=== PATIENT | male | born 1975 | race Caucasian/White ===

== ENCOUNTER → 2019-05-27 13:27 | Outpatient (CLI) | payer OTHER, SELFPAY ==
--- NOTE | 2019-05-27 13:34 | RAD_ITS ---
STUDY: X-RAY - ABDOMEN/PELVIS REASON FOR EXAM: Male, 44 years old. Right ureteral stone TECHNIQUE: Two AP supine views of the abdomen and pelvis. COMPARISON: None. FINDINGS: There is an unremarkable bowel gas pattern. There is no demonstrated free abdominal air. No calcification seen over the course of the renal pelvis and ureters. Normal soft tissue structures. Normal visualized osseous structures. RAD/Abdomen Single View IMPRESSION: Normal x-ray examination of the abdomen and pelvis. Electronically Signed: Hanh Munguia MD at 3:28 EDT , Service support ,
== END ==
PROVIDERS: Referring Provider Nurse Practitioner Adult Health; Visit Provider Nurse Practitioner Adult Health
DX: N20.1 Calculus of ureter (principal)
CPT/HCPCS: 74018

== ENCOUNTER 2022-01-20 01:59 | Emergency (ER) | payer OTHER, SELFPAY ==
[2022-01-20 02:00] VITALS: BP 191/112; PULSE 94; RESP 21; TEMP 36.8; O2SAT 98; BMI 30.7
--- NOTE | 2022-01-20 02:31 | EKG12_ITS ---
Test Reason : CP Blood Pressure : / mmHG Vent. Rate : 088 BPM Atrial Rate : 088 BPM P-R Int : 150 ms QRS Dur : 088 ms QT Int : 382 ms P-R-T Axes : 036 -36 029 degrees QTc Int : 462 ms Normal sinus rhythm Left axis deviation Abnormal ECG Confirmed by WELLINGTON DIAZ, ADELSO ([id number]), photograph editor MARK MEJÍA ([id number]) on 01/21/2022 9:14:59 AM Referred By: LUCIE Confirmed By:ADELSO PARIS MD
[2022-01-20 02:37] LABS: Absolute Lymphocyte Count 2.32 X10^3/uL (0.83-4.51); Absolute Neutrophil Count 8.8 X10^3/uL (2.0-7.7); Basophil# 0.03 X10^3/uL; Basophil% 0.2 % (0-1); Eosinophil# 0.14 X10^3/uL; Eosinophils% 1.1 % (0-5); Hematocrit 46.2 % (40-54); Hemoglobin 15.9 g/dL (13.0-16.5); Lymphocyte # 2.32 X10^3/ul (0.83-4.51); Lymphocyte % 18.7 % (19-41); Mean Corp Hgb Conc 34.4 g/dL (32-36); Mean Corpuscular Volume 90.1 fL (80-94); Monocyte# 1.13 X10^3/uL; Monocyte% 9.1 % (0-10); NRBC Flagged by Analyzer 0 % (0-5); Neutrophil # 8.75 X10^3/uL (2.7-7.7); Neutrophil % 70.5 % (47-70); Platelet Count 323 K/mm3 (150-450); RBC Distribution Width CV 11.9 % (11.6-14.6); RBC Distribution Width SD 39.1 fl (35.1-43.9); Red Blood Count 5.13 M/mm3 (4.6-6.2); White Blood Count 12.4 K/mm3 (4.4-11.0)
--- NOTE | 2022-01-20 02:52 | RAD_ITS ---
STUDY: X-RAY CHEST REASON FOR EXAM: Male, 46 years old. CHEST PAIN TECHNIQUE: Single AP portable view of the chest. COMPARISON: None. FINDINGS: Shallow inspiratory level. Compression of parenchyma possible atelectasis in the bases. There is no demonstrated pleural abnormality. Normal size heart. Normal mediastinum and darnell. Normal visualized pulmonary arteries. Normal visualized aortic arch and descending thoracic aorta. Normal visualized thoracic spine. Normal visualized ribs, clavicles, and shoulders. There is no demonstrated abnormality of the visualized soft tissue structures of the upper abdomen. RAD/Chest 1 View (Portable) IMPRESSION: Possible atelectasis/compression of parenchyma in the bases with shallow intervertebral level. No pulmonary edema, congestive heart failure or confluent pneumonia. Electronically Signed: Hanh Munguia MD at 3:31 EDT Reading Location ID and State: , Service support ,
[2022-01-20 02:55] LABS: Anion Gap 5 (5-15); BUN 17 mg/dL (7-18); BUN/Creat Ratio 14.4 RATIO (10-20); Calcium,Total 9.1 mg/dL (8.5-10.1); Chloride 106 mmol/L (98-107); Creatinine, Serum 1.18 mg/dL (0.70-1.30); EST Glomerular Filtration Rate 70 mL/min (>60); Est Glom Filt Rate - Afr Amer 85 mL/min (>60); Estimated Creatinine Clearance 82.43 ml/min; Glucose 129 mg/dL (74-106); Potassium 3.5 mmol/L (3.5-5.1); Sodium Level 140 mmol/L (136-145); Troponin-I HS 5 pg/mL (3.0-78.0)
[2022-01-20] MEDS: Aspirin 325 MG Tablet PO (03:23)
[2022-01-20] MEDS: Labetalol (Prefilled) 20 MG/4 ML IV (03:24)
[2022-01-20] MEDS: cloNIDine HCl 0.2 MG Tablet PO (03:28)
[2022-01-20 03:31] VITALS: BP 179/115
[2022-01-20 03:45] LABS: AST(SGOT) 15 U/L (15-37); Alanine Aminotransfer ALT/SGPT 38 U/L (16-61); Albumin, Serum 3.6 g/dL (3.2-5.0); Alkaline Phosphatase 88 U/L (45-117); Bilirubin, Direct 0.07 mg/dL (0.00-0.30); Globulin 3.6 g/dL (2.2-4.2); Lipase 109 U/L (73-393); Protein, Total 7.2 g/dL (6.4-8.2)
[2022-01-20 04:07] LABS: D-Dimer Quantitative (DVT/PE) < 0.27 FEU/ug/m (0.27-0.49)
[2022-01-20 04:30] LABS: Troponin-I HS 5 pg/mL (3.0-78.0)
[2022-01-20] MEDS: Ketorolac 30 MG/ML Syringe IV (04:32)
[2022-01-20] MEDS: hydrALAZINE 20 MG/ML Vial IV (04:34)
[2022-01-20 04:37] VITALS: BP 149/119
--- NOTE | 2022-01-20 05:28 | EDS_ITS ---
HPI History of Present Illness Chief Complaint: Chest Pain Narrative Narrative: Patient is a 46-year-old male who states that today he was swimming and throwing his kids in the air. He states he did not think much of this and did not develop any sudden onset pain. However he states that they ate dinner around 530 or 6 and then few hours later he had a late night snack which was a repeat piece of pizza which is what they had for dinner. He states he then developed some discomfort in his chest and was able to belch and felt better but did not have complete resolution of symptoms. He states they have been persistent now for the past few hours and secondary to this he comes in for evaluation [facility] Medical History no medical history Home Medications NK 01/20/22 [History Last Taken Unknown] Allergy/AdvReac Type Severity Reaction Status Date / Time No Known Allergies Allergy Verified 01/20/22 02:04 Surgical History no surgical history Social History Smoking Status: Never smoker [facility] ED Constitutional Constitutional ED: Denies chills or fever(s) ENT ENT ED: Denies sore throat Cardiovascular Cardiovascular: Reports chest pain; Denies palpitations or racing heartbeat Respiratory/Chest Respiratory/Chest: Denies cough, dyspnea or dyspnea on exertion Gastrointestinal Gastrointestinal: Reports nausea; Denies abdominal pain, diarrhea or vomiting Genitourinary Genitourinary ED: Denies dysuria Musculoskeletal Musculoskeletal: Denies back pain or myalgias Integumentary Denies rash Neurologic Neurologic: Denies headache(s) Hematologic/Lymphatic Hematologic/Lymphatic: Denies easy bleeding or easy bruising EXAM Physical Exam Const Vital Signs: 01/20/22 02:00 01/20/22 02:02 01/20/22 03:31 Temperature 98.3 F Temperature Source Oral Pulse Rate 94 Respiratory Rate 21 H Respiratory Effort Normal Non-Labored Respiratory Pattern Normal Blood Pressure 191/112 H 179/115 H Blood Pressure Mean 138 136 Pulse Ox 98 Oxygen Delivery Method Room Air 01/20/22 04:37 01/20/22 05:36 Temperature Temperature Source Pulse Rate 86 Respiratory Rate 25 H Respiratory Effort Respiratory Pattern Blood Pressure 149/119 H 116/82 H Blood Pressure Mean 129 Pulse Ox 96 Oxygen Delivery Method Positive well nourished and well developed General Appearance ED: well developed HEENT Reports moist mucous membranes Eyes PERRL and EOMs intact bilaterally Neck supple and no JVD Chest Wall Chest Narrative: There is pain with palpation of the right anterior chest wall over top the costal joints which patient states is similar nature to the pain he is experiencing Resp normal respiratory effort and clear to auscultation bilaterally Cardio regular rate and regular rhythm Rate: other Other Details: Radial pulses are plus 2 out of 4 bilaterally are equal and symmetric GI normal to inspection, nondistended, normoactive bowel sounds, non-tender, non- distended and no masses GI Narrative: No voluntary guarding or rigidity no pulsatile mass Auscultation: normoactive bowel sounds Palpation: soft Extremity normal to inspection Extremity Narrative: No asymmetric edema no pitting edema negative Homans' sign bilaterally Neuro oriented x3 and CN's II-XII intact bilaterally Sensorium / Orientation: alert Psych mental status grossly normal Skin no rashes or lesions noted MDM MDM MDM Narrative Medical decision making narrative: Patient presented to the ER hypertensive but otherwise stable vitals. He reported chest discomfort for the past few hours which did begin after eating and he also reported increased physical activity today. He also stated that he felt like the pain was slightly worse with inspiration but his only risk factor for DVT is recent travel to [place]. Secondary to the chest discomfort and his mild to moderate risk factors I did elect to perform a cardiac work-up. His initial and delta troponin are normal at 5 and his D-dimer is negative. His EKG is sinus rhythm and chest x-ray reveals no acute lung pathology. Patient was medicated because of hypertension and did have resolution of this. He also had his blood pressure taken and bilateral arms and they are essentially equal with the right arm being 128/77 and the left arm being 118/79. A 10 point difference is not clinically significant. On reevaluation the patient is resting comfortably and does report improvement of his symptoms. Therefore with overall negative work-up and improvement of symptoms I do not feel there is need for further testing or admission and patient will be discharged home. Patient is agreeable with this plan and will follow-up with family doctor to discuss need for further testing on an outpatient basis Lab Data Attestation: I reviewed the patient's lab results. Labs: Laboratory Results - last 24 hr 01/20/22 01/20/22 01/20/22 02:10 02:10 02:10 WBC 12.4 H RBC 5.13 Hgb 15.9 Hct 46.2 MCV 90.1 MCH 31.0 MCHC 34.4 RDW Std Deviation 39.1 RDW Coeff of Barbra 11.9 Plt Count 323 MPV 10.0 Immature Gran % (Auto) 0.400 Neut % (Auto) 70.5 H Lymph % (Auto) 18.7 L Polk % (Auto) 9.1 Eos % (Auto) 1.1 Baso % (Auto) 0.2 Absolute Neuts (auto) 8.8 H Absolute Lymphs (auto) 2.32 Nucleated RBC % 0 D-Dimer Quant (PE/DVT) < 0.27 L Sodium 140 Potassium 3.5 Chloride 106 Carbon Dioxide 29.0 Anion Gap 5 BUN 17 Creatinine 1.18 Estim Creat Clear Calc 82.43 Est GFR (MDRD) Af Amer 85 Est GFR (MDRD) Non-Af 70 BUN/Creatinine Ratio 14.4 Glucose 129 H Calcium 9.1 Total Bilirubin Direct Bilirubin AST ALT Alkaline Phosphatase Troponin I High Sens 5 Total Protein Albumin Globulin Lipase 01/20/22 01/20/22 02:10 04:10 WBC RBC Hgb Hct MCV MCH MCHC RDW Std Deviation RDW Coeff of Barbra Plt Count MPV Immature Gran % (Auto) Neut % (Auto) Lymph % (Auto) Polk % (Auto) Eos % (Auto) Baso % (Auto) Absolute Neuts (auto) Absolute Lymphs (auto) Nucleated RBC % D-Dimer Quant (PE/DVT) Sodium Potassium Chloride Carbon Dioxide Anion Gap BUN Creatinine Estim Creat Clear Calc Est GFR (MDRD) Af Amer Est GFR (MDRD) Non-Af BUN/Creatinine Ratio Glucose Calcium Total Bilirubin 0.30 Direct Bilirubin 0.07 AST 15 ALT 38 Alkaline Phosphatase 88 Troponin I High Sens 5 Total Protein 7.2 Albumin 3.6 Globulin 3.6 Lipase 109 Radiography Diagnostic Testing: Clinical Impression(s) from Imaging Studies Chest X-Ray 01/20/22 02:52 IMPRESSION: Possible atelectasis/compression of parenchyma in the bases with shallow intervertebral level. No pulmonary edema, congestive heart failure or confluent pneumonia. Electronically Signed: Hanh Munguia MD at 3:31 EDT Reading Location ID and State: , Service support , Chest x-ray as interpreted by the emergency medicine physician reveals no acute infiltrate pneumothorax or pleural effusion Discharge Plan Triage Chief Complaint: Chest Pain ED Provider: Dio Warner Dx/Rx/DC Orders Clinical Impression: Nonspecific chest pain, Hypertension Instructions: ED Chest Pain, Uncertain Cause Prescriptions: No Action NK Primary Care Provider: Care Physician,No Primary Referrals: Saba Bourne MD [STAFF PHYSICIAN] - 3-5 Days Care Physician,No Primary [Primary Care Provider] - Activity Restrictions/Additional Instructions: Please keep a blood pressure journal based on your elevated readings at today's visit. Please follow-up with family doctor for further evaluation and return to the ER should you have any further concerns Disposition Disposition: Home, Self Care Discharge Date/Time: 01/20/22 05:37
[2022-01-20 05:36] VITALS: BP 116/82; PULSE 86; RESP 25; O2SAT 96
== END 2022-01-20 05:37 | disposition home or self-care (01) ==
PROVIDERS: Emergency Provider Emergency Medicine; Visit Provider Emergency Medicine
DX: R07.9 Chest pain, unspecified (principal); R03.0 Elevated blood-pressure reading, without diagnosis of hypertension
CPT/HCPCS: 71045; 80048; 80076; 83690; 84484; 85025; 85379; 93005; 96374; 96375; 99284; A4216

== ENCOUNTER → 2022-03-31 | Outpatient (CLI) | payer OTHER, SELFPAY ==
[2022-03-31 11:06] LABS: Bacteria 0 SEEN /hpf (None Seen); Mucous, Urine 0 SEEN /hpf (<or=2+); Red Blood Cells-Urine 0 SEEN /hpf (0-5)
[2022-03-31 11:58] LABS: Absolute Lymphocyte Count 1.69 X10^3/uL (0.83-4.51); Absolute Neutrophil Count 4.7 X10^3/uL (2.0-7.7); Basophil# 0.03 X10^3/uL; Basophil% 0.4 % (0-1); Eosinophil# 0.06 X10^3/uL; Eosinophils% 0.8 % (0-5); Hematocrit 47.4 % (40-54); Hemoglobin 16.3 g/dL (13.0-16.5); Lymphocyte # 1.69 X10^3/ul (0.83-4.51); Lymphocyte % 23.7 % (19-41); Mean Corp Hgb Conc 34.4 g/dL (32-36); Mean Corpuscular Hgb 30.4 pg (27.0-32.0); Mean Corpuscular Volume 88.4 fL (80-94); Mean Platelet Vol. 10.2 fl (6.2-12.0); Monocyte# 0.64 X10^3/uL; NRBC Flagged by Analyzer 0 % (0-5); Neutrophil # 4.67 X10^3/uL (2.7-7.7); Neutrophil % 65.5 % (47-70); Platelet Count 313 K/mm3 (150-450); RBC Distribution Width CV 12.2 % (11.6-14.6); RBC Distribution Width SD 39.7 fl (35.1-43.9); Red Blood Count 5.36 M/mm3 (4.6-6.2); White Blood Count 7.1 K/mm3 (4.4-11.0)
[2022-03-31 11:59] LABS: Color, Urine Yellow (Yellow); Glucose, Dipstick Normal (Normal); Ketone-Dipstick Negative (Negative); Leukocyte Esterase-Dipstick Negative /ul (Negative); Nitrite-Dipstick Negative (Negative); Occult Blood-Urine Negative /ul (Negative); Protein-Dipstick 15 mg/dl (Negative); Specific Gravity, Urine 1.015 (1.002-1.030); Urine Bilirubin Dipstick Negative (Negative); Urine Clarity Clear (Clear); Urine Urobilinogen Normal (Normal); Urine pH 6.5 (5.0 - 8.0)
[2022-03-31 12:10] LABS: AST(SGOT) 16 U/L (15-37); Alanine Aminotransfer ALT/SGPT 48 U/L (16-61); Alkaline Phosphatase 81 U/L (45-117); Anion Gap 4 (5-15); BUN 13 mg/dL (7-18); BUN/Creat Ratio 13.5 RATIO (10-20); Calcium,Total 9.2 mg/dL (8.5-10.1); Chloride 103 mmol/L (98-107); Creatinine, Serum 0.96 mg/dL (0.70-1.30); EST Glomerular Filtration Rate 89 mL/min (>60); Est Glom Filt Rate - Afr Amer 108 mL/min (>60); Globulin 3.9 g/dL (2.2-4.2); Glucose 82 mg/dL (74-106); Potassium 4.1 mmol/L (3.5-5.1); Protein, Total 7.9 g/dL (6.4-8.2); Sodium Level 137 mmol/L (136-145)
[2022-03-31 13:16] LABS: Squamous Epithelial Cells - UA 0-5 SEEN /hpf (0-5); White Blood Cells 0-5 SEEN /hpf (0-5)
== END | disposition home or self-care (01) ==
LOC: BIMLAB 10:52
PROVIDERS: PCP Internal Medicine; Referring Provider Internal Medicine; Visit Provider Internal Medicine
DX: R10.30 Lower abdominal pain, unspecified (principal); I10 Essential (primary) hypertension
CPT/HCPCS: 36415; 80053; 81001; 85025

== ENCOUNTER → 2022-04-06 | Outpatient (CLI) | payer OTHER, SELFPAY ==
--- NOTE | 2022-04-06 09:52 | CT_ITS ---
STUDY: CT ABDOMEN AND PELVIS WITH CONTRAST REASON FOR EXAM: Male, 47 years old. 3 week history of bilateral lower abdominal pain. RADIATION DOSAGE (If Supplied By Facility): CTDIvol = ( 16.88 ) mGy, DLP = ( 1339.90 ) mGycm TECHNIQUE: Transaxial images were obtained from the dome of the diaphragm to the symphysis pubis with oral contrast. Oral and amp; IV Readi-CAT and amp; 100mL Isovue-300 was administered. Sagittal and coronal images were reconstructed. Individualized dose optimization techniques were used for this CT. COMPARISON: None. FINDINGS: The visualized lung bases are unremarkable. The visualized portions of the heart are within normal limits. There is decreased attenuation of the liver consistent with steatosis. Normal gallbladder and extrahepatic biliary system. Normal spleen. Normal pancreas. Normal bilateral adrenal glands. Normal right kidney. Normal left kidney. Normal visualized stomach. Normal small intestine. Normal colon. The appendix is visualized and appears normal. Normal abdominal aorta. Normal inferior vena cava. Normal retroperitoneum. Normal urinary bladder. Small bilateral inguinal hernias containing fat slightly larger on the right side. There are mild degenerative changes of the visualized lumbar spine. CT/Abdomen/Pelvis WITH Contrast IMPRESSION: Fatty infiltration of the liver. Electronically Signed: Yusef Peñaloza MD at 10:33 EDT ,
== END | disposition home or self-care (01) ==
LOC: CT 09:51
PROVIDERS: PCP Internal Medicine; Referring Provider Internal Medicine; Visit Provider Internal Medicine
DX: R10.30 Lower abdominal pain, unspecified (principal)
CPT/HCPCS: 74177; Q9967

== ENCOUNTER → 2022-04-14 | Outpatient (CLI) | payer OTHER, SELFPAY ==
[2022-04-14 12:31] LABS: Cholesterol 179 mg/dL (200); High Density Lipoprotein 39 mg/dL; Triglycerides 279 mg/dL; Very Low Density Lipoprotein 56 mg/dL (5-40)
== END | disposition home or self-care (01) ==
LOC: BIMLAB 10:46
PROVIDERS: PCP Internal Medicine; Referring Provider Internal Medicine; Visit Provider Internal Medicine
DX: Z13.6 Encounter for screening for cardiovascular disorders (principal)
CPT/HCPCS: 36415; 80061

== ENCOUNTER → 2023-01-19 | Outpatient (CLI) | payer OTHER, SELFPAY ==
[2023-01-19 12:01] LABS: Absolute Lymphocyte Count 1.38 X10^3/uL (0.83-4.51); Absolute Neutrophil Count 4.8 X10^3/uL (2.0-7.7); Basophil# 0.04 X10^3/uL; Basophil% 0.6 % (0-1); Eosinophil# 0.06 X10^3/uL; Eosinophils% 0.9 % (0-5); Hematocrit 46.1 % (40-54); Hemoglobin 15.6 g/dL (13.0-16.5); Lymphocyte # 1.38 X10^3/ul (0.83-4.51); Lymphocyte % 19.9 % (19-41); Mean Corp Hgb Conc 33.8 g/dL (32-36); Mean Corpuscular Volume 91.7 fL (80-94); Mean Platelet Vol. 10.4 fl (6.2-12.0); Monocyte# 0.63 X10^3/uL; Monocyte% 9.1 % (0-10); NRBC Flagged by Analyzer 0 % (0-5); Neutrophil # 4.78 X10^3/uL (2.7-7.7); Neutrophil % 68.6 % (47-70); Platelet Count 307 K/mm3 (150-450); RBC Distribution Width CV 12.5 % (11.6-14.6); RBC Distribution Width SD 41.6 fl (35.1-43.9); Red Blood Count 5.03 M/mm3 (4.6-6.2)
[2023-01-19 12:33] LABS: ALB/GLOB Ratio 0.9 RATIO (0.9-2.4); AST(SGOT) 16 U/L (15-37); Alanine Aminotransfer ALT/SGPT 36 U/L (16-61); Albumin, Serum 3.6 g/dL (3.2-5.0); Alkaline Phosphatase 89 U/L (45-117); Anion Gap 4 (5-15); BUN 15 mg/dL (7-18); BUN/Creat Ratio 14.9 RATIO (10-20); Calcium,Total 9.4 mg/dL (8.5-10.1); Chloride 104 mmol/L (98-107); Cholesterol 190 mg/dL (200); Creatinine, Serum 1.01 mg/dL (0.70-1.30); EST Glomerular Filtration Rate 84 mL/min (>60); Est Glom Filt Rate - Afr Amer 101 mL/min (>60); Globulin 4.2 g/dL (2.2-4.2); Glucose 94 mg/dL (74-106); High Density Lipoprotein 42 mg/dL; Potassium 4.3 mmol/L (3.5-5.1); Protein, Total 7.8 g/dL (6.4-8.2); Sodium Level 136 mmol/L (136-145); Triglycerides 267 mg/dL; Very Low Density Lipoprotein 53 mg/dL (5-40)
== END | disposition home or self-care (01) ==
LOC: BIMLAB 10:24
PROVIDERS: PCP Internal Medicine; Referring Provider Internal Medicine; Visit Provider Internal Medicine
DX: I10 Essential (primary) hypertension (principal); E78.2 Mixed hyperlipidemia
CPT/HCPCS: 36415; 80053; 80061; 85025

== ENCOUNTER → 2023-12-28 | Outpatient (CLI) | payer OTHER, SELFPAY ==
[2023-12-28 14:23] LABS: Cytology, Body Fluid / CSF SEE PATHOLOGY REPORT
--- NOTE | 2023-12-28 14:23 | CYSPIN_PTH ---
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 Jeannette Asher MD Tissues: Urine Procedures: Pap Stain (control) Special Stain Group II Cytospin Fluid HEADER OPERATION: Not noted PRE-OP DIAGNOSIS: TISSUE SUBMITTED: Urine for cytology DIAGNOSIS CYTOLOGY Urine for cytology (cytospin): Negative for high-grade urothelial carcinoma (Lina Category II). See comment. AM/mr 12/29/2023 COMMENT This specimen primarily contains blood. Clinical correlation is necessary. The Lina System for urine cytology diagnostic categorization was used in the evaluation of this case. CYTOLOGY STUDY Slides are reviewed. CYTOLOGY GROSS Received is 60 ml of dark red-cloudy fluid labeled with the patient's name and and designated per the requisition as urine. Submitted for cytology preparation. Mr 12/29/2023 TC:5 CPT: 56916
[2023-12-28 15:30] LABS: Absolute Lymphocyte Count 1.22 X10^3/uL (0.83-4.51); Basophil# 0.04 X10^3/uL; Basophil% 0.4 % (0-1); Eosinophil# 0.03 X10^3/uL; Eosinophils% 0.3 % (0-5); Hematocrit 44.8 % (40-54); Hemoglobin 15.2 g/dL (13.0-16.5); Lymphocyte # 1.22 X10^3/ul (0.83-4.51); Lymphocyte % 13.7 % (19-41); Mean Corp Hgb Conc 33.9 g/dL (32-36); Mean Corpuscular Hgb 30.5 pg (27.0-32.0); Mean Platelet Vol. 10.4 fl (6.2-12.0); Monocyte# 0.57 X10^3/uL; Monocyte% 6.4 % (0-10); NRBC Flagged by Analyzer 0 % (0-5); Neutrophil # 7.03 X10^3/uL (2.7-7.7); Neutrophil % 78.9 % (47-70); Platelet Count 289 K/mm3 (150-450); RBC Distribution Width CV 12.2 % (11.6-14.6); Red Blood Count 4.98 M/mm3 (4.6-6.2); White Blood Count 8.9 K/mm3 (4.4-11.0)
[2023-12-28 16:08] LABS: ALB/GLOB Ratio 1.1 RATIO (0.9-2.4); AST(SGOT) 17 U/L (15-37); Alanine Aminotransfer ALT/SGPT 34 U/L (16-61); Albumin, Serum 3.8 g/dL (3.2-5.0); Alkaline Phosphatase 80 U/L (45-117); Anion Gap 6 (5-15); BUN 12 mg/dL (7-18); BUN/Creat Ratio 13.2 RATIO (10-20); Calcium,Total 9.1 mg/dL (8.5-10.1); Chloride 102 mmol/L (98-107); Cholesterol 173 mg/dL (200); Creatinine, Serum 0.91 mg/dL (0.70-1.30); EST Glomerular Filtration Rate 94 mL/min (>60); Est Glom Filt Rate - Afr Amer 113 mL/min (>60); Globulin 3.6 g/dL (2.2-4.2); Glucose 98 mg/dL (74-106); High Density Lipoprotein 47 mg/dL; PSA,Total - Annual Screen 0.56 ng/mL (0.00-4.00); Potassium 4.1 mmol/L (3.5-5.1); Protein, Total 7.4 g/dL (6.4-8.2); Sodium Level 136 mmol/L (136-145); Triglycerides 246 mg/dL; Very Low Density Lipoprotein 49 mg/dL (5-40)
== END | disposition home or self-care (01) ==
LOC: BIMLAB 14:22
PROVIDERS: PCP Internal Medicine; Visit Provider Physician Assistant
DX: I10 Essential (primary) hypertension (principal); E78.2 Mixed hyperlipidemia; R31.9 Hematuria, unspecified; Z12.5 Encounter for screening for malignant neoplasm of prostate
CPT/HCPCS: 36415; 80053; 80061; 84153; 85025; 87086; 88108; 88313; G0103

== ENCOUNTER → 2025-02-26 | Outpatient (CLI) | payer BC, SELFPAY ==
[2025-02-26 12:20] LABS: Hematocrit 43.9 % (40-54); Hemoglobin 15.2 g/dL (13.0-16.5); Mean Corp Hgb Conc 34.6 g/dL (32-36); Mean Corpuscular Volume 89.0 fL (80-94); Mean Platelet Vol. 10.3 fl (6.2-12.0); Platelet Count 285 K/mm3 (150-450); RBC Distribution Width CV 12.4 % (11.6-14.6); RBC Distribution Width SD 40.3 fl (35.1-43.9); Red Blood Count 4.93 M/mm3 (4.6-6.2); White Blood Count 6.4 K/mm3 (4.4-11.0)
[2025-02-26 12:42] LABS: AST(SGOT) 21 U/L (<=37); Alanine Aminotransfer ALT/SGPT 27 U/L (<=46); Albumin, Serum 4.3 g/dL (3.5-5.0); Alkaline Phosphatase 84 U/L (40-129); Anion Gap 11 (5-15); BUN 14 mg/dL (4-19); BUN/Creat Ratio 12.2 RATIO (10-20); Calcium,Total 9.5 mg/dL (7.6-11.0); Carbon Dioxide 26.4 mmol/L (21.0-32.0); Chloride 101 mmol/L (98-108); Cholesterol 172 mg/dL (<=200); Globulin 3.1 g/dL (2.2-4.2); Glucose 98 mg/dL (70-99); Low Density Lipoprotein Calc. 88 mg/dL; PSA,Total - Annual Screen 0.36 ng/mL (0.02-4.00); Potassium 4.7 mmol/L (3.3-5.1); Triglycerides 194 mg/dL; Very Low Density Lipoprotein 39 mg/dL (5-40); cholesterol:hdl ratio screen 3.83
== END | disposition home or self-care (01) ==
LOC: BIMLAB 11:08
PROVIDERS: PCP Physician Assistant; Referring Provider Physician Assistant; Visit Provider Physician Assistant
DX: Z00.00 Encounter for general adult medical examination without abnormal findings (principal); Z12.5 Encounter for screening for malignant neoplasm of prostate
CPT/HCPCS: 36415; 80053; 80061; 84153; 85027; G0103

== ENCOUNTER → 2025-06-17 | Outpatient (CLI) | payer BC, SELFPAY ==
[2025-06-17 15:35] LABS: Hematocrit 43.6 % (40-54); Hemoglobin 15.4 g/dL (13.0-16.5); Mean Corp Hgb Conc 35.3 g/dL (32-36); Mean Corpuscular Volume 87.0 fL (80-94); Mean Platelet Vol. 9.8 fl (6.2-12.0); Platelet Count 309 K/mm3 (150-450); RBC Distribution Width CV 12.1 % (11.6-14.6); RBC Distribution Width SD 38.8 fl (35.1-43.9); Red Blood Count 5.01 M/mm3 (4.6-6.2); White Blood Count 9.3 K/mm3 (4.4-11.0)
[2025-06-17 16:22] LABS: Anion Gap 11 (5-15); BUN 18 mg/dL (4-19); BUN/Creat Ratio 15.1 RATIO (10-20); Calcium,Total 9.2 mg/dL (7.6-11.0); Carbon Dioxide 25.2 mmol/L (21.0-32.0); Chloride 101 mmol/L (98-108); Glucose 95 mg/dL (70-99); Potassium 4.1 mmol/L (3.3-5.1)
--- OUTSIDE RECORDS SUMMARY | 2025-06-17 16:51 | XMS RPT_ITS | CCD ---
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 Darius Asher Attending Provider [phone] [place], Dr. Machado Primary Care Provider Dr. Darius Asher Referring Provider [phone] [place], Dr. Machado Primary Care Provider Dr. Darius Asher Attending Provider [phone] Dr. Darius Asher Referring Provider [phone] Kwame Hicks MD Unavailable PHYSICIAN, NONE Primary Care Physician Unavailab GAGAN Pat DO Attending Unavailable PHYSICIAN, NONE Primary Care Unavailable Gregory Chaney MD Unavailable GREGORY CHANEY Attending Unavailable DARIUS ASHER Referring Unavailable Owen Michael Primary Care Provider Owen Michael Attending Provider [phone] Owen Michael Referring Provider [phone] Owen Reza Primary Care Unavailable Owen Reza Attending Unavailable Darius Asher Referring Unavailable Owen Reza Attending Unavailable Owen Reza Referring Unavailable Owen Reza Primary Care Unavailable Owen Reza Attending Unavailable Owen Reza Referring Unavailable Owen Reza Primary Care Unavailable Juan Alberto, Owen Primary Care Unavailable Francy Gill Attending Unavailable Medications Current Medications Medication Drug Class(es) Dates Sig (Normalized) Sig (Original) acetaminophen 325 mg / oxyCODONE hydrochloride 5 mg oral tablet (1 source) Opioid Agonist Start: 01-12-2024 End: 01-15-2024 take 1 tablet by mouth every six hours as needed for pain Percocet 5 mg-325 mg oral tablet Dose = 1 tab(s), Oral, q6h, PRN for pain, X 3 day(s), # 12 tab(s), 0 Refill(s), Pharmacy: [id number], Prostatitis Start Date: 01/12/24 Stop Date: 01/15/24 Status: Ordered ciprofloxacin 500 mg oral tablet (3 sources) Quinolone Antimicrobial Start: 01-12-2024 End: 01-26-2024 Cipro 500 mg oral tablet Dose : 500 mg = 1 tab(s), Oral, q12h, X 14 day(s), # 28 tab(s), 0 Refill(s), 01/26/24 12:15:00 PM EDT, Pharmacy: [id number] Start Date: 01/12/24 Stop Date: 01/26/24 Status: Ordered Start: 12-28-2023 End: 07-24-2024 take 1 tablet by mouth every twelve hours Ciprofloxacin Hcl (Cipro) 250 mg tablet Discontinued 250 mg PO Q12H 14 0 December 28, 2023 12:00am July 24, 2024 11:01am tamsulosin hydrochloride 0.4 mg oral capsule (1 source) alpha-Adrenergic Walter Start: 05-20-2019 Floma x 0.4 mg oral capsule Dose : 0.4 mg = 1 cap(s), Oral, qDay, # 5 cap(s), 0 Refill(s) Start Date: 05/20/19 Status: Ordered Completed/Discontinued Medications Medication Drug Class(es) Dates Sig (Normalized) Sig (Original) lisinopril 20 mg oral tablet (16 sources) Angiotensin Converting Enzyme Inhibitor Start: 04-14-2022 End: 01-19-2023 take 1 tablet by mouth twice daily Lisinopril 20 mg tablet Discontinued 20 mg PO TWICE A DAY 180 December 01, 2022 1:58pm January 19, 2023 10:18am Start: 03-31-2022 End: 04-14-2022 take 1 tablet by mouth once daily Lisinopril 20 mg tablet Discontinued 20 mg PO DAILY 30 March 31, 2022 12:00am April 14, 2022 10:43am losartan potassium 50 mg oral tablet (16 sources) Angiotensin 2 Receptor Walter Start: 01-19-2023 End: 02-10-2025 take 1 tablet by mouth once daily Losartan 50 mg tablet Discontinued 50 mg PO DAILY 90 0 November 05, 2024 1:46pm February 10, 2025 9:11am ondansetron 4 mg oral tablet (1 source) Serotonin-3 Receptor Antagonist Start: 05-20-2019 End: 05-20-2019 Zofran 4 mg oral tablet Dose : 4 mg = 1 tab(s), Oral, q8h, PRN Nausea, # 10 tab(s), 0 Refill(s) Start Date: 05/20/19 Stop Date: 05/20/19 Status: Ordered Problems Active Problems Problem Classification Problem Date Documented Da te Episodic/Chronic Abdominal pain (10 sources) Lower abdominal pain; Translations: [Lower abdominal pain, unspecified] Episodic Administrative/social admission (3 sources) Persons encountering health services in other specified circumstances; Translations: [Other reasons for seeking consultation] Episodic Calculus of urinary tract (4 sources) Kidney stone; Translations: [Calculus of kidney] Onset: 01-12-2024 Episodic Conditions associated with dizziness or vertigo (2 sources) Vertigo; Translations: [Dizziness and giddiness] 01-02-2024 Episodic Disorders of lipid metabolism (5 sources) Mixed hyperlipidemia; Translations: [Mixed hyperlipidemia] 01-19-2023 Chronic Essential hypertension (19 sources) Essential hypertension; Translations: [Essential (primary) hypertension] Onset: 07-24-2024 Chronic Genitourinary symptoms and ill-defined conditions (6 sources) Blood in urine; Translations: [Hematuria, unspecified] Onset: 01-12-2024 Episodic Inflammatory conditions of male genital organs (1 source) Prostatitis; Translations: [Inflammatory disease of prostate, unspecified] Onset: 01-12-2024 Episodic Nonspecific chest pain (7 sources) Chest pain; Translations: [Chest pain, unspecified] 01-28-2022 Episodic Other connective tissue disease (2 sources) Pain in lower limb; Translations: [Pain in leg, unspecified] 01-02-2024 Episodic Other liver diseases (2 sources) Fatty (change of) liver, not elsewhere classified; Translations: [Other chronic nonalcoholic liver disease] Chronic Past or Other Problems Problem Classification Problem Date Documented Da te Episodic/Chronic Other screening for suspected conditions (not mental disorders or infectious disease) (15 sources) Encounter for screening for malignant neoplasm of colon; Translations: [Special screening for malignant neoplasms of colon] Onset: 02-26-2025 Episodic Comment on above: 01/20/2023 cologuard negative Unclassified (6 sources) No history of procedure; Translations: [No history of previous surgery] 03-31-2022 Results Test Name Value Interpretation Reference Range Facility Anion gap in Serum or Plasma Ordered By: Owen Reza on 02-26-2025 Anion gap [Moles/Vol] 11 mmol/L 5- [facility] BUN/creatinine ratioOrdered By: Owen Reza on 02-26-2025 Urea nitrogen/Creatinine [Mass ratio] 12.2 mg/mg - [facility] Bilirubin, totalOrdered By: Owen Reza on 02-26-2025 Bilirubin [Mass/Vol] 0.43 mg/dL 0.00-1.30 [facility] CBC-Complete Blood Cnt No Di ffon 02-26-2025 Erythrocyte distribution width (RBC) [Ratio] 12.4 % Normal 11.6-14.6 [facility] Comment on above: Performed By: #### L 500.4050, L500.4100, L100.0500, L501.9910 #### [facility] [address] [place], [address] Hematocrit (Bld) [Volume fraction] 43.9 % Normal 40-54 [facility] Comment on above: Performed By: #### L 500.4050, L500.4100, L100.0500, L501.9910 #### [facility] [address] [place], [address] Hemoglobin (Bld) [Mass/Vol] 15.2 g/dL Normal 13.0-16.5 [facility] Comment on above: Performed By: #### L 500.4050, L500.4100, L100.0500, L501.9910 #### [facility] [address] [place], [address] MCH (RBC) [Entitic mass] 30.8 pg Normal 27.0-32.0 [facility] Comment on above: Performed By: #### L 500.4050, L500.4100, L100.0500, L501.9910 #### [facility] [address] [place], [address] MCHC (RBC) [Mass/Vol] 34.6 g/dL Normal 32-36 [facility] Comment on above: Performed By: #### L 500.4050, L500.4100, L100.0500, L501.9910 #### [facility] [address] [place], [address] MCV (RBC) [Entitic vol] 89.0 fL Normal 80-94 [facility] Comment on above: Performed By: #### L 500.4050, L500.4100, L100.0500, L501.9910 #### [facility] [address] [place], [address] Platelet mean volume (Bld) [Entitic vol] 10.3 fL Normal 6.2-12.0 [facility] Comment on above: Performed By: #### L 500.4050, L500.4100, L100.0500, L501.9910 #### [facility] [address] [place], [address] Platelets (Bld) [#/Vol] 285 10*3/uL Normal 150-450 [facility] Comment on above: Performed By: #### L 500.4050, L500.4100, L100.0500, L501.9910 #### [facility] [address] [place], [address] RBC (Bld) [#/Vol] 4.93 10*6/uL Normal 4.6-6.2 [facility] Comment on above: Performed By: #### L 500.4050, L500.4100, L100.0500, L501.9910 #### [facility] [address] [place], [address] RDW SD 40.3 fl Normal 35.1-43.9 [facility] Comment on above: Performed By: #### L 500.4050, L500.4100, L100.0500, L501.9910 #### [facility] [address] [place], [address] WBC (Bld) [#/Vol] 6.4 10*3/uL Normal 4.4-11.0 [facility] Comment on above: Performed By: #### L 500.4050, L500.4100, L100.0500, L501.9910 #### [facility] [address] [place], [address] Calculated very low density lipoprotein (VLDL) cholesterol measurementOrdered By: Owen Reza on 02-26-2025 Calculated very low density lipoprotein (VLDL) cholesterol measurement 39 mg/dL 5-40 [facility] Carbon dioxide, total [Moles /volume] in Central venous bloodOrdered By: Owen Reza on 02-26-2025 CO2 [Moles/Vol] 26.4 mmol/L 21.0-32.0 [facility] Chloride assayOrdered By: Eyad Reza on 02-26-2025 Chloride [Moles/Vol] 101 mmol/L 98-108 [facility] Comprehensive Metabolic Prof ilon 02-26-2025 Albumin [Mass/Vol] 4.3 g/dL Normal 3.5-5.0 [facility] Comment on above: Performed By: #### L 500.4050, L500.4100, L100.0500, L501.9910 #### [facility] [address] [place], [address] Albumin/Globulin [Mass ratio] 1.4 {ratio} Normal 0.9-2.4 [facility] Comment on above: Performed By: #### L 500.4050, L500.4100, L100.0500, L501.9910 #### [facility] [address] [place], [address] ALK PHOS 84 U/L Normal 40-129 [facility] Comment on above: Performed By: #### L 500.4050, L500.4100, L100.0500, L501.9910 #### [facility] [address] [place], [address] ALT [Catalytic activity/Vol] 27 U/L Normal <=46 [facility] Comment on above: Performed By: #### L 500.4050, L500.4100, L100.0500, L501.9910 #### [facility] [address] [place], [address] AST [Catalytic activity/Vol] 21 U/L Normal <=37 [facility] Comment on above: Performed By: #### L 500.4050, L500.4100, L100.0500, L501.9910 #### [facility] [address] [place], [address] Bilirubin [Mass/Vol] 0.43 mg/dL Normal 0.00-1.30 [facility] Comment on above: Performed By: #### L 500.4050, L500.4100, L100.0500, L501.9910 #### [facility] [address] [place], [address] BUN/CRE 12.2 RATIO Normal 10-20 [facility] Comment on above: Performed By: #### L 500.4050, L500.4100, L100.0500, L501.9910 #### [facility] [address] [place], [address] Calcium [Mass/Vol] 9.5 mg/dL Normal 7.6-11.0 [facility] Comment on above: Performed By: #### L 500.4050, L500.4100, L100.0500, L501.9910 #### [facility] [address] [place], [address] Chloride [Moles/Vol] 101 mmol/L Normal 98-108 [facility] Comment on above: Performed By: #### L 500.4050, L500.4100, L100.0500, L501.9910 #### [facility] [address] [place], [address] CO2 [Moles/Vol] 26.4 mmol/L Normal 21.0-32.0 [facility] Comment on above: Performed By: #### L 500.4050, L500.4100, L100.0500, L501.9910 #### [facility] [address] [place], [address] Creatinine [Mass/Vol] 1.18 mg/dL Normal 0.70-1.20 [facility] Comment on above: Performed By: #### L 500.4050, L500.4100, L100.0500, L501.9910 #### [facility] [address] [place], [address] GAP 11 Normal 5-15 [facility] Comment on above: Performed By: #### L 500.4050, L500.4100, L100.0500, L501.9910 #### [facility] [address] [place], [address] GFR/1.73 sq M.predicted among non-blacks MDRD (S/P/Bld) [Vol rate/Area] 75 mL/min/{1.73_m2} Normal >60 [facility] Comment on above: Result Comment: mL/m in/1.73m2 CKD-EPI Creatinine Equation (2020) Performed By: #### L 500.4050, L500.4100, L100.0500, L501.9910 #### [facility] [address] [place], [address] Globulin (S) [Mass/Vol] 3.1 g/dL Normal 2.2-4.2 [facility] Comment on above: Performed By: #### L 500.4050, L500.4100, L100.0500, L501.9910 #### [facility] [address] [place], [address] Glucose [Mass/Vol] 98 mg/dL Normal 70-99 [facility] Comment on above: Performed By: #### L 500.4050, L500.4100, L100.0500, L501.9910 #### [facility] [address] [place], [address] Potassium [Moles/Vol] 4.7 mmol/L Normal 3.3-5.1 [facility] Comment on above: Performed By: #### L 500.4050, L500.4100, L100.0500, L501.9910 #### [facility] [address] [place], [address] Sodium [Moles/Vol] 138 mmol/L Normal 133-145 [facility] Comment on above: Performed By: #### L 500.4050, L500.4100, L100.0500, L501.9910 #### [facility] [address] [place], [address] T PROT 7.4 g/dL Normal 5.9-8.4 [facility] Comment on above: Performed By: #### L 500.4050, L500.4100, L100.0500, L501.9910 #### [facility] [address] [place], [address] Urea nitrogen [Mass/Vol] 14 mg/dL Normal 4-19 [facility] Comment on above: Performed By: #### L 500.4050, L500.4100, L100.0500, L501.9910 #### [facility] [address] [place], [address] Erythrocyte distribution wid th ratioOrdered By: Owen Reza on 02-26-2025 Erythrocyte distribution width (RBC) [Ratio] 12.4 % 11.6-14.6 [facility] Erythrocyte distribution wid th standard deviationOrdered By: Owen Reza on 02-26-2025 Erythrocyte distribution width (RBC) [Ratio] 40.3 fl 35.1-43.9 [facility] Glomerular filtration rate ( GFR) estimation/1.73 sq m using serum, plasma, or whole bOrdered By: Owen Reza on 02-26-2025 GFR/1.73 sq M.predicted among non-blacks MDRD (S/P/Bld) [Vol rate/Area] 75 mL/min/{1.73_m2} >60 [facility] Comment on above: mL/min/1.73m2 CKD-EP I Creatinine Equation (2020) Hematocrit Auto (Bld) [Volum e fraction]Ordered By: Owen Reza on 02-26-2025 Hematocrit (Bld) [Volume fraction] 43.9 % 40-54 [facility] Hemoglobin measurementOrdere d By: Owen Reza on 02-26-2025 Hemoglobin (Bld) [Mass/Vol] 15.2 g/dL 13.0-16.5 [facility] Internal Medicine Office Vis iton 02-26-2025 Internal Medicine Office Visit [facility] [address] [place] [address] [place] [address] OFFICE VISIT Date of Service: 02/26/25 MR#: [id number] Acct: [id number] Name: HUSSEIN HUNTER Rep #: [id number] : 1975 Provider: LUIS Malik Age/Sex: 49/M Location: [facility] [place] [place] Status: Signed Intake Vital Signs 07/24/24 10:04 02/26/25 10:13 Height 6 ft 6 ft Weight: 222 lb 222 lb BMI 30.1 30.1 BP 118/76 132/84 H Blood Pressure Location Lt brachial Lt brachial Position Sitting Sitting Respiration 16 16 Pulse 80 75 Pulse Source Monitor Monitor Temp 97.6 F L 97.8 F Temp Source Temporal Temporal Pulse Oximetry (%) 98 98 Oxygen Delivery Method room air room air Intake Visit Reasons: FOLLOW UP [employer] Employee Required: No Is patient in pain?: No Allergies No Known Allergies Allergy (Verified 02/26/25 10:01) Medications ???Medication ???Instructions ???Recorded ???Confirmed ???Type losartan 50 mg tablet 50 mg PO DAILY #90 TABLETS 5 02/26/25 Rx Nurse's Note: Pt states he has better insurance and is wanting a referral to [facility]. Pt states he thinks he would like to a urology referral as he saw Dr. Mercado 1 time but insurance was causing issues. Cystoscopy, and ct reccomended to determine lithotripsy. Pt states he thinks stone broke up and he has passed it but has a chronic h/o kidney stones. 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 Patient feeling well without any concerns. He checks his BP periodically and has been very well controlled at home. He has not had headaches, flushing, palpitations, or other symptoms associated with high blood pressure. He is trying to walk for exercise. Diet is ok He has history of kidney stones. He had a large stone that he believes he passed within the past year. He had previously been having gross hematuria which he states he has not seen in a long time although he does admit that there are times he urinates that he gets kind of oranges type of gritty sediment in the toilet bowl. He states is not necessarily painful when this happens but he does notice sometimes it feels a little different on urination he had seen a urologist previously but could not follow-up with them due to insurance He has not had colonoscopy at the same time has had Cologuard which was negative. He does see dentist annually Saw eye doctor within the past year ROS Const Constitutional: No body ache, chills, excessive sweating, fatigue, fever(s), frequent falls, headache(s), snoring, weakness, sleep problems or change in appetite Eyes Eyes: No blurry vision, change in vision, eye pain or Light sensitivity ENT ENT: No abnormal hearing, ear or mastoid pain, tinnitus, nasal congestion, headache(s), neck pain or sore throat Resp Respiratory: No cough, shortness of breath, snoring or wheezing Cardio Cardiology: No chest pain at rest, chest pain with exertion, excessive sweating, shortness of breath, dyspnea on exertion, lightheadedness, orthopnea or palpitations Gastro GI: No abdominal pain, change in bowel habits, constipation, cramping, diarrhea, nausea/dyspepsia or vomiting Genitourinary Male: No burning urination, painful urination, urinary incontinence or urinary frequency Musc Musculoskeletal: No abnormal gait, joint pain, back pain, limited range of motion, neck pain or numbness Skin Skin: No dry skin, redness, lesions, itchy eyes, rash or wounds Neuro Neurology: No abnormal gait, abnormal hearing, weakness, frequent falls, headache(s), memory loss or numbness Psych Psychiatric: No anxiety, No change in appetite, No depression, No memory loss and No Thoughts of harming yourself/Others Endo Endocrine: No cold intolerance, excessive sweating, fatigue, flushing, heat intolerance, increased thirst/drinking or increased hunger Aller/Imm Allergy/Immunologi c: No itchy eyes, seasonal allergy symptoms, hives or wheezing Jhoan/Lymp (more content not included)... Normal [facility] LDL calc ser/plasOrdered By: Owen Reza on 02-26-2025 Cholesterol in LDL [Mass/Vol] 88 mg/dL [facility] Comment on above: Bmrhppjhjy=170-671 m g/dL & Higher Miip=864 mg/dL or greater Laboratory - Chemistry and C hemistry - challengeOrdered By: Owen Castilloluis f on 02-26-2025 AST [Catalytic activity/Vol] 21 U/L <38 [facility] Lipid Profileon 02-26-2025 CHOL:HDL 3.83 Normal [facility] Comment on above: Performed By: #### L 500.4050, L500.4100, L100.0500, L501.9910 #### [facility] [address] [place], [address] Cholesterol [Mass/Vol] 172 mg/dL Normal <=[address] [facility] Comment on above: Result Comment: Chol esterol level, Desirable <200 mg/dL Borderline high cholesterol 200-239 mg/dL High cholesterol >=240 mg/dL Recommendations of the NCEP Adult Treatment Panel for the following risk-cutoff thresholds for the [place] population. Performed By: #### L 500.4050, L500.4100, L100.0500, L501.9910 #### [facility] [address] [place], [address] Cholesterol in HDL [Mass/Vol] 45 mg/dL Normal [facility] Comment on above: Result Comment: Molly onal Cholesterol Education Program (NCEP) guidelines: <40 mg/dL: Low HDL-cholesterol (major risk factor for CHD) >= 60 mg/dL: High HDL-cholesterol (negative risk factor for CHD) HDL-cholesterol is affected by a number of factors, e.g. smoking, exercise, hormones, sex and age. Performed By: #### L 500.4050, L500.4100, L100.0500, L501.9910 #### [facility] [address] [place], [address] Cholesterol in LDL [Mass/Vol] 88 mg/dL Normal [facility] Comment on above: Result Comment: Bord ldbsit=741-695 mg/dL Higher Pizp=717 mg/dL or greater Performed By: #### L 500.4050, L500.4100, L100.0500, L501.9910 #### [facility] [address] [place], [address] Cholesterol in VLDL [Mass/Vol] 39 mg/dL Normal 5-40 [facility] Comment on above: Performed By: #### L 500.4050, L500.4100, L100.0500, L501.9910 #### [facility] [address] [place], [address] Triglyceride [Mass/Vol] 194 mg/dL Normal [facility] Comment on above: Result Comment: The drugs N-Acetylcysteine and Metamizole may falsely depress this assay. Normal range: <150 mg/dL Borderline High: 150-199 mg/dL High: 200-499 mg/dL Very High: >500 mg/dL Performed By: #### L 500.4050, L500.4100, L100.0500, L501.9910 #### [facility] [address] [place], [place], [id number] MCV (mean corpuscular volume ) determinationOrdered By: Owen Reza on 02-26-2025 MCV (RBC) [Entitic vol] 89.0 fL 80-94 [facility] Mean corpuscular hemoglobin (MCH) determinationOrdered By: Owen Reza on 02-26-2025 MCH (RBC) [Entitic mass] 30.8 pg 27.0-32.0 [facility] Mean corpuscular hemoglobin concentration (MCHC) determinationOrdered By: Owen Reza on 02-26-2025 MCHC (RBC) [Mass/Vol] 34.6 g/dL 32-36 [facility] Mean platelet volume determi nationOrdered By: Owen Reza on 02-26-2025 Platelet mean volume (Bld) [Entitic vol] 10.3 fL 6.2-12.0 [facility] PSA,Total - Annual Screenon 02-26-2025 PSA,TOT SCREEN 0.36 ng/mL Normal 0.02-4.00 [facility] Comment on above: Result Comment: This test was performed using the [employer] tPSA method. Measured values of a patient??sample can vary depending on the testing procedure used. PSA values determined on patient samples by different testing procedures cannot be used interchangeably. If there is a change in PSA assays while monitoring therapy, sequential testing should be performed to confirm baseline values. Performed By: #### L 500.4050, L500.4100, L100.0500, L501.9910 #### [facility] [address] [place], [address] Platelet countOrdered By: Eyad Reza on 02-26-2025 Platelets (Bld) [#/Vol] 285 10*3/uL 150-450 [facility] Potassium measurement (mass/ volume)Ordered By: Owen Reza on 02-26-2025 Potassium (Unsp spec) [Mass/Vol] 4.7 mmol/L 3.3-5.1 [facility] RBC Auto (Bld) [#/Vol]Ordere d By: Owen Reza on 02-26-2025 RBC (Bld) [#/Vol] 4.93 10*6/uL 4.6-6.2 [facility] Screening total cholesterol/ high density lipoprotein (HDL) cholesterol ratioOrdered By: Owen Reza on 02-26-2025 Cholesterol.total/Choles terol in HDL [Mass ratio] 3.83 {ratio} [facility] Serum creatinine measurement (mass/volume)Ordered By: Owen Reza on 02-26-2025 Creatinine [Mass/Vol] 1.18 mg/dL 0.70-1.20 [facility] Serum globulin measurementOr dered By: Owen Reza on 02-26-2025 Globulin (S) [Mass/Vol] 3.1 g/dL 2.2-4.2 [facility] Serum glucose measurement (m ass/volume)Ordered By: Owen Reza on 02-26-2025 Glucose [Mass/Vol] 98 mg/dL 70-99 [facility] Serum or plasma alanine culver otransferase (ALT) measurementOrdered By: Owen Reza on 02-26-2025 ALT [Catalytic activity/Vol] 27 U/L <47 [facility] Serum or plasma albumin luis m urement (mass/volume)Ordered By: Owen Reza on 02-26-2025 Albumin [Mass/Vol] 4.3 g/dL 3.5-5.0 [facility] Serum or plasma albumin/glob ulin mass ratioOrdered By: Owen Reza on 02-26-2025 Albumin/Globulin [Mass ratio] 1.4 {ratio} 0.9-2.4 [facility] Serum or plasma alkaline gerardo sphatase measurementOrdered By: Owen Reza on 02-26-2025 ALP [Catalytic activity/Vol] 84 U/L 40-129 [facility] Serum or plasma calcium luis m urement (mass/volume)Ordered By: Owen Reza on 02-26-2025 Calcium [Mass/Vol] 9.5 mg/dL 7.6-11.0 [facility] Serum or plasma cholesterol in HDL measurement (mass/volume)Ordered By: Owen Reza on 02-26-2025 Cholesterol in HDL [Mass/Vol] 45 mg/dL >40 [facility] Comment on above: National Cholesterol Education Program (NCEP) guidelines:<40 mg/dL: Low HDL-cholesterol (major risk factor for CHD)>= 60 mg/dL: High HDL-cholesterol (negative risk factor for CHD)HDL-cholesterol is affected by a number of factors, e.g. smoking, exercise, hormones, sex and age. Serum or plasma cholesterol measurement (mass/volume)Ordered By: Owen Reza on 02-26-2025 Cholesterol [Mass/Vol] 172 mg/dL <[address] [facility] Comment on above: Cholesterol level, D esirable <200 mg/dLBorderline high cholesterol 200-239 mg/dLHigh cholesterol >=240 mg/dLRecommendations of the NCEP Adult Treatment Panel for the following risk-cutoff thresholds for the [place] population. Serum or plasma urea nitroge n measurement (mass/volume)Ordered By: Owen Reza on 02-26-2025 Urea nitrogen [Mass/Vol] 14 mg/dL 4-19 [facility] Sodium levelOrdered By: Jonatan Reza on 02-26-2025 Sodium [Moles/Vol] 138 mmol/L 133-145 [facility] Total proteinOrdered By: Jeffery bond Juan Alberto on 02-26-2025 Protein [Mass/Vol] 7.4 g/dL 5.9-8.4 [facility] Triglycerides measurementOrd ered By: Owen Reza on 02-26-2025 Triglyceride [Mass/Vol] 194 mg/dL <199 [facility] Comment on above: The drugs N-Acetylcy steine and Metamizole may falsely depress this assay. Normal range: <150 mg/dLBorderline High: 150-199 mg/dLHigh: 200-499 mg/dLVery High: >500 mg/dL White blood cell (WBC) count Ordered By: Owen Reza on 02-26-2025 WBC (Bld) [#/Vol] 6.4 10*3/uL 4.4-11.0 [facility] Internal Medicine Office Vis itocamille 07-24-2024 Internal Medicine Office Visit [id number] [place] [address] [place] [address] OFFICE VISIT Date of Service: 07/24/24 MR#: [id number] Acct: [id number] Name: KAVITHAHUSSEIN M Rep #: [id number] : 1975 Provider: LUIS Malik Age/Sex: 49/M Location: [facility] [place] [place].[facility] Status: Signed Intake Vital Signs 07/20/23 12:57 12/28/23 13:23 07/24/24 10:04 Height 6 ft 6 ft 6 ft Weight: 222 lb BMI 30.1 BP 118/76 Blood Pressure Location Lt brachial Position Sitting Respiration 16 Pulse 80 Pulse Source Monitor Temp 97.6 F L Temp Source Temporal Pulse Oximetry (%) 98 Oxygen Delivery Method room air Intake Visit Reasons: 1 YR FU Chief Complaint: yearly [employer] Employee Required: No Accompanied by: Self Is patient in pain?: No Allergies No Known Allergies Allergy (Verified 07/24/24 10:01) Medications ???Medication ???Instructions ???Recorded ???Confirmed ???Type losartan 50 mg tablet 50 mg PO DAILY #90 TABLETS 11/15/23 07/24/24 Rx PFSH Medical History Hematuria Surgical History No history of previous surgery Family History Father Hypertension Social History household members: family housing: house current occupational status: employed 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 He has made some good changes cutting out all pop and energy drinks. He states that he did end up seeing urology after he was seen in the ER and had the CT scan showing 11mm stone. He states that for the most part he doesn't have pains in the kidneys / back unless he states that he is overdoing it or working excessively hard. Patient states that the has not had any feelings of his blood pressure being up. He has not had any flushing in the face or other symptoms at all. He states that he feels like his energy has been better and has just overall felt better with some of the changes he has made. ROS Const Constitutional: No body ache, chills, excessive sweating, fatigue, fever(s), frequent falls, headache(s), snoring, weakness or change in appetite Eyes Eyes: No blurry vision, change in vision, eye pain or Light sensitivity ENT ENT: No abnormal hearing, ear or mastoid pain, tinnitus, nasal congestion, headache(s), neck pain or sore throat Resp Respiratory: No cough, shortness of breath, snoring or wheezing Cardio Cardiology: No chest pain at rest, chest pain with exertion, excessive sweating, dyspnea on exertion, lightheadedness, orthopnea or palpitations Gastro GI: No abdominal pain, change in bowel habits, constipation, cramping, diarrhea, nausea/dyspepsia or vomiting Genitourinary Male: No burning urination, painful urination, urinary incontinence or urinary frequency Musc Musculoskeletal: No abnormal gait, joint pain, back pain, limited range of motion, muscle weakness, neck pain or numbness Skin Skin: No dry skin, redness, lesions, itchy eyes, rash or wounds Neuro Neurology: No abnormal gait, abnormal hearing, weakness, frequent falls, headache(s), memory loss or numbness Psych Psychiatric: No anxiety, No change in appetite, No depression, No memory loss and No Thoughts of harming yourself/Others Endo Endocrine: No cold intolerance, excessive sweating, fatigue, flushing, heat intolerance, increased thirst/drinking or increased hunger Aller/Imm Allergy/Immunologi c: No itchy eyes, seasonal allergy symptoms, hives or wheezing Jhoan/Lymp Hematologic/Lympha tic: No easy bleeding or easy bruising Exam Const General: cooperative, healthy appearing, comfortable, no acute distress, well developed, well groomed, not in acute distress and not ill appearing Nutritional Appearance: average body habitus Orientation: alert, awake and oriented x3 Limitations: mental status not altered [facility] Head: normocephalic and atraumatic Ears: hearing grossly normal bilaterally Neck Neck: no lymphadenopathy, trachea midline, supple and nontender Neck mass: No Resp Effort Inspection: normal respiratory effort, able to speak in complete sentences, symmetric chest movement, normal respiratory pattern, no audible wheezes, no cough and respiratory effort not decreased Auscultation: Bilateral: Clear to Auscul (more content not included)... Normal [facility] AMB POC URINALYSIS DIP STICK AUTO W/O MICROon 02-15-2024 Bilirubin, UA Negative [facility] Blood, UA Large [facility] Glucose, UA Negative [facility] Ketones, UA (mg/dL) Negative Negative mg/dL [facility] Leukocytes, UA Negative [facility] th Nitrite, UA Negative [facility] pH, UA 5.5 [facility] Protein, UA Negative [facility] Spec Grav, UA 1.020 [facility] Urobilinogen, UA 0.2 [facility] He alth [facility] Office Visiton 02-15-2024 Follow-up visit [id number] Hussein Hunter 1975 Date Provider Department Center 02/15/2024 [id number] CHANEY [facility] URO None No family history on file Level of Service:42162 IN OFFICE/OUTPATIENT NEW SF MDM 15 MINUTES Reason for Visit and Comments: New Patient [542] Nephrolithiasis [842135] - States he has 11mm stone in his right kidney Blood in Urine [005508] - Gross-has had 2 episodes of gross hematuria since seen in ER [facility] Progress Noteon 02-15-2024 Progress Note Gregory Chaney MD 02/15/2024 at 10:20 AM UROLOGY INITIAL OFFICE VISIT PATIENT NAME: Hussein Hunter DATE OF : 1975 TODAY'S DATE: 02/15/2024 Chief Complaint: Chief Complaint Patient presents with New Patient Nephrolithiasis States he has 11mm stone in his right kidney Blood in Urine Gross-has had 2 episodes of gross hematuria since seen in ER HISTORY OF PRESENT ILLNESS: Mr. Hunter is a 48 y.o. male who presents with right renal calculus He was seen in [facility], diagnosed with bacterial prostatitis, gross hematuria He did have right flank pain CT done in ER showing 11mm right renal calculus He does have history of previous kidney stone REVIEW OF SYSTEMS: Review of Systems Gastrointestinal: Negative for abdominal distention and abdominal pain. Genitourinary: Positive for flank pain and hematuria. Past Medical History: No past medical history on file. Past Surgical History: No past surgical history on file. Current Medications: Prior to Admission medications Medication Sig Start Date End Date Taking? Authorizing Provider losartan (Cozaar) 50 MG tablet Take 50 mg by mouth daily. 02/09/24 Yes Historical Provider, Allergies: Patient has no known allergies. Social History: Social History Socioeconomic History Marital status: Spouse name: Not on file Number of children: Not on file Years of education: Not on file Highest education level: Not on file Occupational History Not on file Tobacco Use Smoking status: Not on file Smokeless tobacco: Not on file Substance and Sexual Activity Alcohol use: Not on file Drug use: Not on file Sexual activity: Not on file Other Topics Concern Not on file Social History Narrative Not on file Social Determinants of Health Financial Resource Strain: Not on file Food Insecurity: Not on file Transportation Needs: Not on file Physical Activity: Not on file Stress: Not on file Social Connections: Not on file Intimate Partner Violence: Not on file Housing Stability: Not on file Family History: @FAMHXNH@ PHYSICAL EXAM: VITALS: BP (!) 149/94 Pulse 69 Ht 6' (1.829 m) Wt 210 lb (95.3 kg) BMI 28.48 kg/m? Physical Exam Constitutional: Appearance: Normal appearance. Neurological: Mental Status: He is alert. DATA: WBC No results found for: WBC BMP No results found for: NA, K, CL, CO2, BUN, CREATININE, GLUCOSE, CALCIUM PSA No results found for: PSA UA Lab Results Component Value Date UROBILINOGEN 0.2 02/15/2024 BILIRUBINUR Negative 02/15/2024 Review: Records reviewed from [facility] Ureteroscopy I discussed the procedure of ureteroscopy. I discussed the risks, benefits and alternatives to this. I discussed the possible complications which could include bleeding, infection and stricture disease. I discussed the possible need for stenting. I explained the need for stent and duration will be determined at that time of surgery. A string may be left. I explained laser lithotripsy as well. I explained this and compared and contrasted it to other procedures such as ESWL and PCNL. She understands this and wishes to proceed forward. Assessment and Plan Diagnoses and all orders for this visit: Gross hematuria - AMB POC URINALYSIS DIP STICK AUTO W/O MICRO Obtain CT results from [facility] Given gross hematuria, he will need cytoscopy Given the large right renal calculus, he potentially will need laser lithotripsy vs eswl So in order to evaluate stone and work up gross hematuria, will plan on cytoscopy, retrograde pyelograms, right ureteroscopy and laser lithotripsy, stent No follow-ups on file. Gregory Chaney MD 02/15/24 10:20 AM Normal [facility] .Auto Diffon 01-12-2024 Basophil, Absolute 0.0 10 3/mcL Normal 0.0-0.2 [facility] ([place]) Comment on above: Performed By: #### G , DONALDO GALLARDO MDW, BMP, CBC #### [facility] [address], [place] [address] Basophils/100 WBC (Bld) 0.4 % Normal 0.0-2.5 [facility] ([place]) Comment on above: Performed By: #### G FR, ANEU, ADIFF, MDW, BMP, CBC #### [address] [address] Eosinophil, Absolute 0.0 10 3/mcL Normal 0.0-0.4 [facility] ([place]) Comment on above: Performed By: #### G FR, ANEU, ADIFF, MDW, BMP, CBC #### [address] [address] Eosinophils/100 WBC (Bld) 0.4 % Normal 0.0-7.0 [facility] ([place]) Comment on above: Performed By: #### G FR, ANEU, ADIFF, MDW, BMP, CBC #### [address] [address] Lymphocyte, Absolute 1.1 10 3/mcL Normal 0.8-3.9 [facility] ([place]) Comment on above: Performed By: #### G FR, ANEU, ADIFF, MDW, BMP, CBC #### [address] [address] Lymphocytes/100 WBC (Bld) 13.5 % Normal 10.0-50.0 [facility] ([place]) Comment on above: Performed By: #### G FR, ANEU, ADIFF, MDW, BMP, CBC #### [address] [address] Monocyte, Absolute 0.6 10 3/mcL Normal 0.2-1.0 [facility] ([place]) Comment on above: Performed By: #### G FR, ANEU, ADIFF, MDW, BMP, CBC #### [address] [address] Monocytes/100 WBC (Bld) 7.5 % Normal 1.7-13.0 [facility] ([place]) Comment on above: Performed By: #### G FR, ANEU, ADIFF, MDW, BMP, CBC #### [address] [address] Neutrophils/100 WBC (Bld) 78.2 % Normal 37.0-80.0 [facility] ([place]) Comment on above: Performed By: #### G PAULINA RAMOS ADIFF, MDW, BMP, CBC #### [address] [address] .GFRon 01-12-2024 GFR 97 ml/min/1.73sqm Normal [facility] ([place]) Comment on above: Result Comment: GFR Population mean for , Non- Americans Ages 20-29 = 116 mL/min/1.73 sq.m. Ages 30-39 = 107 mL/min/1.73 sq.m. Ages 40-49 = 99 mL/min/1.73 sq.m. Ages 50-59 = 93 mL/min/1.73 sq.m. Ages 60-69 = 85 mL/min/1.73 sq.m. Ages 70+ = 75 mL/min/1.73 sq.m. Chronic Kidney Disease: Less than 60 mL/min/1.73 square meters End Stage Renal Disease: Less than 15 mL/min/1.73 square meters Performed By: #### G PAULINA RAMOS ADIFF, MDW, BMP, CBC #### [address] [address] GFR Non- 80 ml/min/1.73sqm Normal [facility] ([place]) Comment on above: Result Comment: GFR Population mean for , Non- Americans Ages 20-29 = 116 mL/min/1.73 sq.m. Ages 30-39 = 107 mL/min/1.73 sq.m. Ages 40-49 = 99 mL/min/1.73 sq.m. Ages 50-59 = 93 mL/min/1.73 sq.m. Ages 60-69 = 85 mL/min/1.73 sq.m. Ages 70+ = 75 mL/min/1.73 sq.m. Chronic Kidney Disease: Less than 60 mL/min/1.73 square meters End Stage Renal Disease: Less than 15 mL/min/1.73 square meters Performed By: #### G , DONALDO GALLARDO MDW, BMP, CBC #### [place] [id number] .MDWon 01-12-2024 Monocyte Distribution Width 17.74 Normal 0.00-20.00 [facility] ([place]) Comment on above: Result Comment: For ED adult patients suspected of sepsis, MDW<=20.0 does not rule out sepsis or risk of sepsis Performed By: #### G , DONALDO GALLARDO, STACEY, BMP, CBC #### [place] [address] .NEUABSon 01-12-2024 Neutrophil, Absolute 6.5 10 3/mcL High 2.9-6.2 [facility] ([place]) Comment on above: Performed By: #### G , DONALDO GALLARDO MDW, BMP, CBC #### [place] [address] .Urinalysis Microscopic (AO) on 01-12-2024 UA RBC LOADED Abnormal None Seen [facility] ([place]) Comment on above: Performed By: #### U AMICAO, UA #### [place] [address] UA Squam Epithelial None Seen Normal None Seen [facility] ([place]) Comment on above: Performed By: #### U AMICAO, UA #### [place] [address] UA Uric Ac Crystals 1+ /hpf Normal [facility] ([place]) Comment on above: Performed By: #### U AMICAO, UA #### [place] [address] UA WBC None Seen Normal None Seen [facility] ([place]) Comment on above: Performed By: #### U AMICAO, UA #### [place] [address] BMPon 01-12-2024 BUN/Creatinine Ratio 13 ratio Normal 7-27 [facility] ([place]) Comment on above: Performed By: #### G FR, DONALDO GALLARDO, STACEY, BMP, CBC #### [place] [address] Calcium [Mass/Vol] 8.7 mg/dL Normal 8.4-10.2 [facility] ([place]) Comment on above: Performed By: #### G , DONALDO GALLARDO MDW, BMP, CBC #### [address] [address] Chloride [Moles/Vol] 103 mmol/L Normal 98-107 [facility] ([place]) Comment on above: Performed By: #### G , DONALDO GALLARDO MDW, BMP, CBC #### [address] [address] CO2 [Moles/Vol] 30 mmol/L High 22-29 [facility] ([place]) Comment on above: Performed By: #### G , DONALDO GALLARDO MDW, BMP, CBC #### [address] [address] Creatinine [Mass/Vol] 0.99 mg/dL Normal 0.70-1.30 [facility] ([place]) Comment on above: Performed By: #### G , DONALDO GALLARDO MDW, BMP, CBC #### [address] [address] Electrolyte Balance 9.0 mEq/L Normal 4.0-15.0 [facility] ([place]) Comment on above: Performed By: #### G , DONALDO GALLARDO MDW, BMP, CBC #### [address] [address] Glucose [Mass/Vol] 103 mg/dL Normal 70-105 [facility] ([place]) Comment on above: Performed By: #### G , DONALDO GALLARDO MDW, BMP, CBC #### [address] [address] Potassium [Moles/Vol] 4.1 mmol/L Normal 3.5-5.1 [facility] ([place]) Comment on above: Performed By: #### Linette RAMOS, DONALDO GALLARDO, STACEY, BMP, CBC #### [address] [address] Sodium [Moles/Vol] 142 mmol/L Normal 136-145 [facility] ([place]) Comment on above: Performed By: #### G PAULINA RAMOS ADIFF, MDW, TARA, CBC #### [address] [address] Urea nitrogen [Mass/Vol] 13 mg/dL Normal 7-18 [facility] ([place]) Comment on above: Performed By: #### G PAULINA RAMOS ADIFF, MDW, BMP, CBC #### [address] [address] CBCon 01-12-2024 Erythrocyte distribution width (RBC) [Ratio] 13.2 % Normal 11.5-14.5 [facility] ([place]) Comment on above: Performed By: #### G PAULINA RAMOS ADIFF, MDW, BMP, CBC #### [place] [address] Hematocrit (Bld) [Volume fraction] 43.3 % Normal 42.0-52.0 [facility] ([place]) Comment on above: Performed By: #### G PAULINA RAMOS ADIFF, MDW, BMP, CBC #### [place] [address] Hgb 15.0 G/dL Normal 14.0-18.0 [facility] ([place]) Comment on above: Performed By: #### G PAULINA RAMOS ADIFF, MDW, BMP, CBC #### [place] [id number] MCH (RBC) [Entitic mass] 31.5 pg High 27.0-31.2 [facility] ([place]) Comment on above: Performed By: #### G PAULINA RAMOS ADIFF, MDW, BMP, CBC #### [place] [address] MCHC 34.7 G/dL Normal 31.8-35.4 [facility] ([place]) Comment on above: Performed By: #### G PAULINA RAMOS ADIFF, MDW, BMP, CBC #### [address] [address] MCV (RBC) [Entitic vol] 90.7 fL Normal 80.0-94.0 [facility] ([place]) Comment on above: Performed By: #### G FR, ANEU, DONALDO, MDW, BMP, CBC #### [address] [address] Platelet 278 10 3/mcL Normal 130-400 [facility] ([place]) Comment on above: Performed By: #### G FR, ANEU, ADIFF, MDW, BMP, CBC #### [address] [address] Platelet mean volume (Bld) [Entitic vol] 7.9 fL Normal 7.4-10.4 [facility] ([place]) Comment on above: Performed By: #### G FR, ANEU, DONALDO, MDW, BMP, CBC #### [address] [address] RBC 4.78 10 6/mcL Normal 4.04-6.13 [facility] ([place]) Comment on above: Performed By: #### G FR, ANEU, ADIFF, MDW, BMP, CBC #### [address] [address] WBC 8.2 10 3/mcL Normal 4.6-10.8 [facility] ([place]) Comment on above: Performed By: #### G FR, ANEU, DONALDO, MDW, BMP, CBC #### [address] [address] [address] ABD/PELVIS W/ IV CONTRAST ONLYon 01-12-2024 CT ABD/PELVIS W/ IV CONTRAST ONLY ORIGINAL EXAMINATION: CT OF THE ABDOMEN AND PELVIS WITH CONTRAST 01/12/2024 11:19 am TECHNIQUE: CT of the abdomen and pelvis was performed with the administration of intravenous contrast. Multiplanar reformatted images are provided for review. Automated exposure control, iterative reconstruction, and/or weight based adjustment of the mA/kV was utilized to reduce the radiation dose to as low as reasonably achievable. COMPARISON: May 20, 2019 HISTORY: ORDERING SYSTEM PROVIDED HISTORY: Reason for Exam: rlq abd pain started this morning hx of prostatitis, r/o infection/kidney stone FINDINGS: Very minor degenerative changes are noted in the spine. No other osseous abnormality identified. Small areas of dependent lower lobe atelectasis are noted. No focal liver lesions seen. Spleen, adrenal glands and pancreas are unremarkable. There is a stone in the right renal pelvis measuring 11 mm in size, without significant proximal dilatation. More distally, the right ureter is unremarkable. No left ureteral or left renal stone seen. No other kidney abnormality. No adenopathy, free air or free fluid seen. The urinary bladder is grossly normal. Small bilateral fat containing inguinal hernias are noted, right greater than left. Very minor scattered colonic diverticulosis is evident, without diverticulitis. No other GI tract abnormality is visible. No additional contributory finding. IMPRESSION: 1. 11 mm right renal pelvis stone without evidence for hydronephrosis. 2. Mild scattered colonic diverticulosis without diverticulitis. 3. No other potential acute finding. Interpreted by: Josué Humphrey MD Preliminary Report By: Josué Humphrey MD Electronically signed By Josué Humphrey MD Dictated Date: 01/12/2024 11:22:02 AM Prelim Date: 01/12/2024 11:24:43 AM Sign Date: 01/12/2024 11:24:43 AM Ordering Provider: GAGAN Shepherd [facility] ([place]) LABORATORYOrdered By: SYSTEM SYSTEM on 01-12-2024 Basophil, Absolute 0.0 103/mcL Normal 0.0 - 0.2 10^3/mcL AO Workflow SS Basophils/100 WBC (Bld) 0.4 % Normal 0.0 - 2.5 % AO Workflow SS Calcium [Mass/Vol] 8.7 mg/dL Normal 8.4 - 10. 2 mg/dL AO ADM SS Chloride [Moles/Vol] 103 mmol/L Normal 98 - 10 7 mmol/L AO ADM SS CO2 [Moles/Vol] 30 mmol/L High 22 - 29 mmol/L AO ADM SS Creatinine [Mass/Vol] 0.99 mg/dL Normal 0.70 - 1.30 mg/dL AO ADM SS Electrolyte Balance 9.0 mEq/L Normal 4.0 - 15 .0 mEq/L AO ADM SS Eosinophil, Absolute 0.0 103/mcL Normal 0.0 - 0 .4 10^3/mcL AO Workflow SS Eosinophils/100 WBC (Bld) 0.4 % Normal 0.0 - 7.0 % AO Workflow SS Erythrocyte distribution width (RBC) [Ratio] 13.2 % Normal 11.5 - 14.5 % AO Workflow SS GFR/1.73 sq M.predicted among blacks MDRD (S/P/Bld) [Vol rate/Area] 97 ml/min/1.73sqm Invalid Interpretation Code AO Chemistry S Comment on above: Interpretive Data: GFR Population mean for , Non- Americans Ages 20-29 = 116 mL/min/1.73 sq.m. Ages 30-39 = 107 mL/min/1.73 sq.m. Ages 40-49 = 99 mL/min/1.73 sq.m. Ages 50-59 = 93 mL/min/1.73 sq.m. Ages 60-69 = 85 mL/min/1.73 sq.m. Ages 70+ = 75 mL/min/1.73 sq.m. Chronic Kidney Disease: Less than 60 mL/min/1.73 square meters End Stage Renal Disease: Less than 15 mL/min/1.73 square meters GFR/1.73 sq M.predicted among non-blacks MDRD (S/P/Bld) [Vol rate/Area] 80 ml/min/1.73sqm Invalid Interpretation Code AO Chemistry S Comment on above: Interpretive Data: GFR Population mean for , Non- Americans Ages 20-29 = 116 mL/min/1.73 sq.m. Ages 30-39 = 107 mL/min/1.73 sq.m. Ages 40-49 = 99 mL/min/1.73 sq.m. Ages 50-59 = 93 mL/min/1.73 sq.m. Ages 60-69 = 85 mL/min/1.73 sq.m. Ages 70+ = 75 mL/min/1.73 sq.m. Chronic Kidney Disease: Less than 60 mL/min/1.73 square meters End Stage Renal Disease: Less than 15 mL/min/1.73 square meters Glucose [Mass/Vol] 103 mg/dL Normal 70 - 105 mg/dL AO ADM SS Hematocrit (Bld) [Volume fraction] 43.3 % Normal 42.0 - 52.0 % AO Workflow SS Hemoglobin (Bld) [Mass/Vol] 15.0 G/dL Normal 14.0 - 18.0 G/dL AO Workflow SS Lymphocyte, Absolute 1.1 103/mcL Normal 0.8 - 3 .9 10^3/mcL AO Workflow SS Lymphocytes/100 WBC (Bld) 13.5 % Normal 10.0 - 50.0 % AO Workflow SS MCH (RBC) [Entitic mass] 31.5 pg High 27. 0 - 31.2 pg AO Workflow SS MCHC 34.7 G/dL Normal 31.8 - 35.4 G/dL AO Workflow SS MCV (RBC) [Entitic vol] 90.7 fL Normal 80.0 - 94.0 fL AO Workflow SS Monocyte distribution width Auto (Bld) [Entitic vol] 17.74 1 Normal 0.00 - 20.00 AO Workflow SS Comment on above: Result Comment: For ED adult patients suspected of sepsis, MDW<=20.0 does not rule out sepsis or risk of sepsis Monocyte, Absolute 0.6 103/mcL Normal 0.2 - 1.0 10^3/mcL AO Workflow SS Monocytes/100 WBC (Bld) 7.5 % Normal 1.7 - 13.0 % AO Workflow SS Neutrophil, Absolute 6.5 103/mcL High 2.9 - 6 .2 10^3/mcL AO Workflow SS Neutrophils/100 WBC (Bld) 78.2 % Normal 37.0 - 80.0 % AO Workflow SS Platelet mean volume (Bld) [Entitic vol] 7.9 fL Normal 7.4 - 10.4 fL AO Workflow SS Platelets (Bld) [#/Vol] 278 103/mcL Normal 130 - 400 10^3/mcL AO Workflow SS Potassium [Moles/Vol] 4.1 mmol/L Normal 3.5 - 5.1 mmol/L AO ADM SS RBC (Bld) [#/Vol] 4.78 106/mcL Normal 4.04 - 6.1 3 10^6/mcL AO Workflow SS Sodium [Moles/Vol] 142 mmol/L Normal 136 - 145 mmol/L AO ADM SS Urea nitrogen [Mass/Vol] 13 mg/dL Normal 7 - 18 mg/d L AO ADM SS Urea nitrogen/Creatinine [Mass ratio] 13 ratio Normal 7 - 27 ratio AO ADM SS WBC (Bld) [#/Vol] 8.2 103/mcL Normal 4.6 - 10.8 10^3/mcL AO Workflow SS LABORATORYOrdered By: Jus pearson on 01-12-2024 Appearance (U) Cloudy *ABN* (01/12/24 10:46 AM) Invalid Interpretation Code Clear AO Auto Urine SS Bilirubin Ql (U) Negative (01/12/24 10:46 AM) Normal Negative AO Auto Urine SS Color (U) Brown *ABN* (01/12/24 10:46 AM) Invalid Interpretation Code AO Auto Urine SS Glucose Test strip (U) [Mass/Vol] Negative Normal Negative AO Auto Urine SS Hemoglobin Auto test strip (U) [Mass/Vol] Large *ABN* (01/12/24 10:46 AM) Invalid Interpretation Code Negative AO Auto Urine SS Ketones Ql (U) Negative Normal Negative AO Auto Ur ine SS UA Leuk Est Negative (01/12/24 10:46 AM) Normal Negative AO Auto Urine SS UA Nitrite Negative (01/12/24 10:46 AM) Normal Negative AO Auto Urine SS UA pH 5.5 (01/12/24 10:46 AM) Normal 5.0 - 8.0 AO Auto Urine SS UA Protein 30 mg/dL Normal Negative AO Auto Urine SS UA RBC LOADED /HPF Invalid Interpretation Code None Seen AO Auto Urine SS UA Spec Grav 1.025 (01/12/24 10:46 AM) Normal 1.015-1.025 AO Auto Urine SS UA Specimen Type Clean Catch (01/12/24 10:46 AM) Normal AO Auto Urine SS UA Squam Epithelial None Seen /HPF Normal None Seen A O Auto Urine SS UA Uric Ac Crystals 1+ /HPF Normal AO Au to Urine SS UA Urobilinogen 0.2 E.U./dL Normal 0.2-1.0 AO Auto Urine SS WBC LM.HPF (Urine sed) [#/Area] None Seen /HPF Normal None Seen AO Auto Urine SS UAon 01-12-2024 Color (U) Brown Abnormal [facility] ([place]) Comment on above: Performed By: #### U AMICAO UA #### [address] [address] Glucose (U) [Mass/Vol] Negative Normal Negative [facility] ([place]) Comment on above: Performed By: #### U AMICAO, UA #### [address] [address] Ketones Ql (U) Negative Normal Negative [facility] ([place]) Comment on above: Performed By: #### U AMICAO, UA #### [place] [address] [address] UA Appear Cloudy Abnormal Clear [facility] ([place]) Comment on above: Performed By: #### U AMICAO, UA #### [place] [address] [address] UA Blood Large Abnormal Negative [facility] ([place]) Comment on above: Performed By: #### U AMICAO, UA #### [place] [address] [address] UA Leuk Est Negative Normal Negative [facility] ([place]) Comment on above: Performed By: #### U AMICAO, UA #### [place] [address] [address] UA Nitrite Negative Normal Negative [facility] ([place]) Comment on above: Performed By: #### U AMICAO, UA #### [place] [address] [address] UA pH 5.5 Normal 5.0 - 8.0 [facility] ([place]) Comment on above: Performed By: #### U AMICAO, UA #### [place] [address] [address] UA Protein 30 mg/dL Normal Negative [facility] ([place]) Comment on above: Performed By: #### U AMICAO, UA #### [place] [address] UA Spec Grav 1.025 Normal 1.015-1.025 [facility] ([place]) Comment on above: Performed By: #### U AMICAO, UA #### [place] [address] UA Specimen Type Clean Catch Normal [facility] ([place]) Comment on above: Performed By: #### U AMICAO, UA #### [place] [address] UA Urobilinogen 0.2 E.U./dL Normal 0.2-1.0 [facility] ([place]) Comment on above: Performed By: #### U FEDERICONathan UA #### [address], [place] [address] Urobilinogen (U) [Mass/Vol] Negative Normal Negative [facility] ([place]) Comment on above: Performed By: #### U FEDERICOO, UA #### [place] [address] [place], [place] [address] 36on 01-10-2024 36 Pt called back, pt schedule first available with Dr. Chaney on 02/15/24 in [place] and placed on wait list for Edwin in case of a cancellation. [facility] 36on 01-09-2024 36 Name of Caller: Felicity (Spouse) Contact Reason for Appointment: Felicity is requesting a call back to schedule a new patient appointment for Hussein and states that a referral was sent from Dr. Jonatan Reza. Please contact Felicity and advise. Office Name: [facility] Urology [facility] Absolute lymphocyte countOrd ered By: Dr. Asher on 01-19-2023 Lymphocytes Auto (Unsp spec) [#/Vol] 1.38 10*3/uL 0.83-4.51 [facility] Basophil percentageOrdered B y: Dr. Asher on 01-19-2023 Basophils/100 WBC (Bld) 0.6 % 0-1 [facility] Bilirubin [Mass/Vol] 0.40 mg/dL 0.20-1.00 [facility] Comment on above: For patients on eltr ombopag therapy, use of Dimension [place] TBIL is not recommended. Chloride [Moles/Vol] 104 mmol/L 98-107 [facility] Cholesterol [Mass/Vol] 190 mg/dL <[address] [facility] Comment on above: <200 mg/dL Desirable 200-240 mg/dL Borderline >240 mg/dL High Risk Eosinophils/100 WBC (Bld) 0.9 % 0-5 [facility] Glucose [Mass/Vol] 94 mg/dL 74-106 [facility] Neutrophils (Bld) [#/Vol] 4.8 10*3/uL 2.0-7.7 [facility] Neutrophils/100 WBC (Bld) 68.6 % 47-70 [facility] Potassium [Moles/Vol] 4.3 mmol/L 3.5-5.1 [facility] Protein [Mass/Vol] 7.8 g/dL 6.4-8.2 [facility] Sodium [Moles/Vol] 136 mmol/L 136-145 [facility] Triglyceride [Mass/Vol] 267 mg/dL <199 [facility] [place] [facility] Comment on above: The drugs N-Acetylcy steine and Metamizole may falsely depress this assay.Serum Triglycerides Reference Interval Normal <150 mg/dL Borderline high 150 - 199 mg/dL High 200 - 499 mg/dL Very High > or = 500 mg/dL WBC (Bld) [#/Vol] 7.0 10*3/uL 4.4-11.0 [facility] Blood erythrocytes count (nu mber/volume)Ordered By: Dr. Asher on 01-19-2023 RBC (Bld) [#/Vol] 5.03 10*6/uL 4.6-6.2 [facility] Blood hemoglobin measurement (mass/volume)Ordered By: Dr. Asher on 01-19-2023 Hemoglobin (Bld) [Mass/Vol] 15.6 g/dL 13.0-16.5 [facility] Blood lymphocytes/100 leukoc ytesOrdered By: Dr. Asher on 01-19-2023 Lymphocytes/100 WBC (Bld) 19.9 % 19-41 [facility] Blood monocytes/100 leukocyt esOrdered By: Dr. Asher on 01-19-2023 Monocytes/100 WBC (Bld) 9.1 % 0-10 [facility] Blood platelet mean volumeOr dered By: Dr. Asher on 01-19-2023 Platelet mean volume (Bld) [Entitic vol] 10.4 fL 6.2-12.0 [facility] Determination of erythrocyte mean corpuscular volume (MCV)Ordered By: Dr. Asher on 01-19-2023 MCV (RBC) [Entitic vol] 91.7 fL 80-94 [facility] [place] [facility] Hematocrit Auto (Bld) [Volum e fraction]Ordered By: Dr. Asher on 01-19-2023 Hematocrit (Bld) [Volume fraction] 46.1 % 40-54 [facility] Laboratory - Chemistry and C hemistry - challengeOrdered By: Dr. Asher on 01-19-2023 ALP [Catalytic activity/Vol] 89 U/L 45-117 [facility] ALT [Catalytic activity/Vol] 36 U/L 16-61 [facility] CO2 [Moles/Vol] 28.0 mmol/L 21.0-32.0 [facility] Globulin (S) [Mass/Vol] 4.2 g/dL 2.2-4.2 [facility] [place] [facility] Urea nitrogen/Creatinine [Mass ratio] 14.9 mg/mg 10-20 [facility] Laboratory - Hematology and Cell countsOrdered By: Dr. Asher on 01-19-2023 Erythrocyte distribution width (RBC) [Entitic vol] 41.6 fL 35.1-43.9 [facility] Erythrocyte distribution width (RBC) [Ratio] 12.5 % 11.6-14.6 [facility] Immature granulocytes/100 WBC (Bld) 0.900 % 0.0-0.9 [facility] Comment on above: IG% - Immature Granu locytes (promyelocytes, myelocytes and metamyelocytes) > 1% indicates that a LEFT SHIFT is Present. MCH (RBC) [Entitic mass] 31.0 pg 27.0-32.0 [facility] Nucleated RBC/100 WBC (Bld) [Ratio] 0 % 0-5 [facility] MCHC Auto (RBC) [Mass/Vol]Or dered By: Dr. Asher on 01-19-2023 MCHC (RBC) [Mass/Vol] 33.8 g/dL 32-36 [facility] No Panel InformationOrdered By: Dr. Asher on 01-19-2023 Estimated GFR (MDRD) Amer 101 mL/min >60 [facility] Comment on above: GFR Calc Estimated GFR (MDRD) Non-Af Amer 84 mL/min >60 [facility] Comment on above: Non- GFR Calc Platelets bldOrdered By: Dr. Asher on 01-19-2023 Platelets (Bld) [#/Vol] 307 10*3/uL 150-450 [facility] Serum or plasma albumin luis m urement (mass/volume)Ordered By: Dr. Asher on 01-19-2023 Albumin [Mass/Vol] 3.6 g/dL 3.2-5.0 [facility] Serum or plasma albumin/glob ulin mass ratioOrdered By: Dr. Asher on 01-19-2023 Albumin/Globulin [Mass ratio] 0.9 {ratio} 0.9-2.4 [facility] Serum or plasma calcium luis m urement (mass/volume)Ordered By: Dr. Asher on 01-19-2023 Calcium [Mass/Vol] 9.4 mg/dL 8.5-10.1 [facility] Serum or plasma cholesterol in HDL measurement (mass/volume)Ordered By: Dr. Ahser on 01-19-2023 Cholesterol in HDL [Mass/Vol] 42 mg/dL >40 [facility] Comment on above: The drugs N-Acetylcy steine and Metamizole may falsely depress this assay. Reference Range HDL <40 mg/dL Low HDL Cholesterol HDL >or= 60 mg/dL High HDL Cholesterol Serum or plasma cholesterol in VLDL measurement (mass/volume)Ordered By: Dr. Asher on 01-19-2023 Cholesterol in VLDL [Mass/Vol] 53 mg/dL 5-40 [facility] Serum or plasma creatinine m easurement (mass/volume)Ordered By: Dr. Asher on 01-19-2023 Creatinine [Mass/Vol] 1.01 mg/dL 0.70-1.30 [facility] Comment on above: The validity of the calculated GFR & GFRAA in patients over 70 years has not been determined. Clinical correlation is essential. Serum or plasma low density lipoprotein (LDL) cholesterol measurement (mass/volume)Ordered By: Dr. Asher on 01-19-2023 Cholesterol in LDL [Mass/Vol] 95 mg/dL 0-130 [facility] Serum or plasma urea nitroge n measurement (mass/volume)Ordered By: Dr. Asher on 01-19-2023 Urea nitrogen [Mass/Vol] 15 mg/dL 7-18 [facility] Thin prep Papanicolaou smear with manual screeningOrdered By: Dr. Asher on 01-19-2023 Thin prep Papanicolaou smear with manual screening 16 U/L 15-37 [facility] Thin prep Papanicolaou smear with manual screening 4 5-15 [facility] Basophil percentageon 2021 Cholesterol [Mass/Vol] 179 mg/dL <200 [facility] Work Phone: Comment on above: <200 mg/dL Desirable 200-240 mg/dL Borderline >240 mg/dL High Risk Triglyceride [Mass/Vol] 279 mg/dL <199 [facility] [place] [facility] Work Phone: Comment on above: The drugs N-Acetylcy steine and Metamizole may falsely depress this assay.Serum Triglycerides Reference Interval Normal <150 mg/dL Borderline high 150 - 199 mg/dL High 200 - 499 mg/dL Very High > or = 500 mg/dL Serum or plasma cholesterol in HDL measurement (mass/volume)on 04-14-2022 Cholesterol in HDL [Mass/Vol] 39 mg/dL >40 [facility] Work Phone: Comment on above: The drugs N-Acetylcy steine and Metamizole may falsely depress this assay. Reference Range HDL <40 mg/dL Low HDL Cholesterol HDL >or= 60 mg/dL High HDL Cholesterol Serum or plasma cholesterol in VLDL measurement (mass/volume)on 04-14-2022 Cholesterol in VLDL [Mass/Vol] 56 mg/dL 5-40 [facility] Work Phone: Serum or plasma low density lipoprotein (LDL) cholesterol measurement (mass/volume)on 04-14-2022 Cholesterol in LDL [Mass/Vol] 84 mg/dL 0-130 [facility] Work Phone: Absolute lymphocyte counton 03-31-2022 Lymphocytes Auto (Unsp spec) [#/Vol] 1.69 10*3/uL 0.83-4.51 [facility] Work Phone: Basophil percentageon 2021 Basophil percentage 0-5 SEEN /hpf 0-[address] [facility] Work Phone: Basophils/100 WBC (Bld) 0.4 % 0-1 [facility] [place] [facility] Work Phone: Bilirubin [Mass/Vol] 0.60 mg/dL 0.20-1.00 [facility] Work Phone: Comment on above: For patients on eltr ombopag therapy, use of Dimension [place] TBIL is not recommended. Chloride [Moles/Vol] 103 mmol/L 98-107 [facility] Work Phone: [phone] Eosinophils/100 WBC (Bld) 0.8 % 0-5 [facility] Work Phone: [phone] Glucose [Mass/Vol] 82 mg/dL 74-106 [facility] Work Phone: [phone] Neutrophils (Bld) [#/Vol] 4.7 10*3/uL 2.0-7.7 [facility] Work Phone: Neutrophils/100 WBC (Bld) 65.5 % 47-70 [facility] Work Phone: Potassium [Moles/Vol] 4.1 mmol/L 3.5-5.1 [facility] Work Phone: Protein [Mass/Vol] 7.9 g/dL 6.4-8.2 [facility] Work Phone: [phone] Sodium [Moles/Vol] 137 mmol/L 136-145 [facility] Work Phone: WBC (Bld) [#/Vol] 7.1 10*3/uL 4.4-11.0 [facility] Work Phone: Bilirubin Test strip Ql (U)o n 03-31-2022 Bilirubin Ql (U) Negative Negative [facility] Work Phone: Blood erythrocytes count (nu mber/volume)on 03-31-2022 RBC (Bld) [#/Vol] 5.36 10*6/uL 4.6-6.2 [facility] Work Phone: Blood hemoglobin measurement (mass/volume)on 03-31-2022 Hemoglobin (Bld) [Mass/Vol] 16.3 g/dL 13.0-16.5 [facility] Work Phone: Blood lymphocytes/100 leukoc yteson 03-31-2022 Lymphocytes/100 WBC (Bld) 23.7 % 19-41 [facility] Work Phone: Blood monocytes/100 leukocyt eson 03-31-2022 Monocytes/100 WBC (Bld) 9.0 % 0-10 [facility] Work Phone: Blood platelet mean volumeon 03-31-2022 Platelet mean volume (Bld) [Entitic vol] 10.2 fL 6.2-12.0 [facility] Work Phone: Determination of erythrocyte mean corpuscular volume (MCV)on 03-31-2022 MCV (RBC) [Entitic vol] 88.4 fL 80-94 [facility] Work Phone: Hematocrit Auto (Bld) [Volum e fraction]on 03-31-2022 Hematocrit (Bld) [Volume fraction] 47.4 % 40-54 [facility] Work Phone: Ketones Test strip Ql (U)on 03-31-2022 Ketones Ql (U) Negative Negative [facility] Work Phone: Laboratory - Chemistry and C hemistry - challengeon 03-31-2022 ALP [Catalytic activity/Vol] 81 U/L 45-117 [facility] Work Phone: ALT [Catalytic activity/Vol] 48 U/L 16-61 [facility] Work Phone: CO2 [Moles/Vol] 30.0 mmol/L 21.0-32.0 [facility] Work Phone: Globulin (S) [Mass/Vol] 3.9 g/dL 2.2-4.2 [facility] Work Phone: Urea nitrogen/Creatinine [Mass ratio] 13.5 mg/mg 10-20 [facility] Work Phone: Laboratory - Hematology and Cell countson 03-31-2022 Erythrocyte distribution width (RBC) [Entitic vol] 39.7 fL 35.1-43.9 [facility] Work Phone: Erythrocyte distribution width (RBC) [Ratio] 12.2 % 11.6-14.6 [facility] Work Phone: Immature granulocytes/100 WBC (Bld) 0.600 % 0.0-0.9 [facility] Work Phone: Comment on above: IG% - Immature Granu locytes (promyelocytes, myelocytes and metamyelocytes) > 1% indicates that a LEFT SHIFT is Present. MCH (RBC) [Entitic mass] 30.4 pg 27.0-32.0 [facility] Work Phone: Nucleated RBC/100 WBC (Bld) [Ratio] 0 % 0-5 [facility] Work Phone: MCHC Auto (RBC) [Mass/Vol]on 03-31-2022 MCHC (RBC) [Mass/Vol] 34.4 g/dL 32-36 [facility] Work Phone: Mucus LM Ql (Urine sed)on Mucus Ql (Urine sed) 0 SEEN /hpf [facility] Work Phone: Nitrite Test strip Ql (U)on 03-31-2022 Nitrite Ql (U) Negative Negative [facility] Work Phone: No Panel Informationon 03-31 Estimated GFR (MDRD) Amer 108 mL/min >60 [facility] Work Phone: Comment on above: GFR Calc Estimated GFR (MDRD) Non-Af Amer 89 mL/min >60 [facility] Work Phone: Comment on above: Non- GFR Calc Platelets bldon 03-31-2022 Platelets (Bld) [#/Vol] 313 10*3/uL 150-450 [facility] Work Phone: Protein Test strip Ql (U)on 03-31-2022 Protein Ql (U) 15 mg/dl Negative [facility] Work Phone: Serum or plasma albumin luis m urement (mass/volume)on 03-31-2022 Albumin [Mass/Vol] 4.0 g/dL 3.2-5.0 [facility] Work Phone: Serum or plasma albumin/glob ulin mass ratioon 03-31-2022 Albumin/Globulin [Mass ratio] 1.0 {ratio} 0.9-2.4 [facility] Work Phone: Serum or plasma calcium luis m urement (mass/volume)on 03-31-2022 Calcium [Mass/Vol] 9.2 mg/dL 8.5-10.1 [facility] Work Phone: Serum or plasma creatinine m easurement (mass/volume)on 03-31-2022 Creatinine [Mass/Vol] 0.96 mg/dL 0.70-1.30 [facility] Work Phone: Comment on above: The validity of the calculated GFR & GFRAA in patients over 70 years has not been determined. Clinical correlation is essential. Serum or plasma urea nitroge n measurement (mass/volume)on 03-31-2022 Urea nitrogen [Mass/Vol] 13 mg/dL 7-18 [facility] Work Phone: Squamous epithelial cells de tection in urine sediment by light microscopyon 03-31-2022 Epithelial cells.squamous LM Ql (Urine sed) 0-5 SEEN /hpf 0-5 [facility] Work Phone: Thin prep Papanicolaou smear with manual screeningon 03-31-2022 Thin prep Papanicolaou smear with manual screening 16 U/L 15-37 [facility] Work Phone: Thin prep Papanicolaou smear with manual screening 4 5-15 [facility] Work Phone: Urine blood detectionon 03-08 RBC Ql (U) Negative Negative [facility] Work Phone: RBC Ql (U) 0 SEEN /hpf 0-5 [facility] Work Phone: Urine clarityon 03-31-2022 Clarity (U) Clear Clear [facility] Work Phone: Urine color determinationon 03-31-2022 Color (U) Yellow Yellow [facility] Work Phone: Urine glucose detectionon Glucose Ql (U) Normal mg/dl Normal [facility] Work Phone: Urine leukocyte esterase det ection by dipstickon 03-31-2022 Leukocyte esterase Test strip Ql (U) Negative Negative [facility] Work Phone: Urine pHon 03-31-2022 pH (U) 6.5 [pH] 5.0 - 8.0 [facility] Work Phone: Urine sediment bacteria coun t by microscopy (number/high power field)on 03-31-2022 Bacteria LM.HPF (Urine sed) [#/Area] 0 /[HPF] None Seen [facility] Work Phone: Urine specific gravity measu rementon 03-31-2022 Specific gravity (U) [Rel density] 1.015 1.002-1.030 [facility] Work Phone: Urobilinogen Auto test strip Ql (U)on 03-31-2022 Urobilinogen Ql (U) Normal mg/dl Normal [facility] Work Phone: Absolute lymphocyte counton 01-20-2022 Lymphocytes Auto (Unsp spec) [#/Vol] 2.32 10*3/uL 0.83-4.51 [facility] Work Phone: Basophil percentageon 2021 Basophils/100 WBC (Bld) 0.2 % 0-1 [facility] Work Phone: Bilirubin [Mass/Vol] 0.30 mg/dL 0.20-1.00 [facility] Work Phone: Comment on above: For patients on eltr ombopag therapy, use of Dimension [place] TBIL is not recommended. Chloride [Moles/Vol] 106 mmol/L 98-107 [facility] Work Phone: Eosinophils/100 WBC (Bld) 1.1 % 0-5 [facility] Work Phone: Glucose [Mass/Vol] 129 mg/dL 74-106 [facility] Work Phone: [phone] Comment on above: Fasting Glucose resu lt greater than or equal to 126 mg/dL suggests DIABETES MELLITUS per A.D.A. criteria. Neutrophils (Bld) [#/Vol] 8.8 10*3/uL 2.0-7.7 [facility] Work Phone: Neutrophils/100 WBC (Bld) 70.5 % 47-70 [facility] Work Phone: Potassium [Moles/Vol] 3.5 mmol/L 3.5-5.1 [facility] Work Phone: Protein [Mass/Vol] 7.2 g/dL 6.4-8.2 [facility] Work Phone: Sodium [Moles/Vol] 140 mmol/L 136-145 [facility] Work Phone: WBC (Bld) [#/Vol] 12.4 10*3/uL 4.4-11.0 [facility] Work Phone: Blood erythrocytes count (nu mber/volume)on 01-20-2022 RBC (Bld) [#/Vol] 5.13 10*6/uL 4.6-6.2 [facility] Work Phone: Blood hemoglobin measurement (mass/volume)on 01-20-2022 Hemoglobin (Bld) [Mass/Vol] 15.9 g/dL 13.0-16.5 [facility] Work Phone: Blood lymphocytes/100 leukoc yteson 01-20-2022 Lymphocytes/100 WBC (Bld) 18.7 % 19-41 [facility] Work Phone: Blood monocytes/100 leukocyt eson 01-20-2022 Monocytes/100 WBC (Bld) 9.1 % 0-10 [facility] Work Phone: Blood platelet mean volumeon 01-20-2022 Platelet mean volume (Bld) [Entitic vol] 10.0 fL 6.2-12.0 [facility] Work Phone: Determination of erythrocyte mean corpuscular volume (MCV)on 01-20-2022 MCV (RBC) [Entitic vol] 90.1 fL 80-94 [facility] Work Phone: Direct bilirubinon 2 Bilirubin.direct [Mass/Vol] 0.07 mg/dL 0.00-0.30 [facility] Work Phone: Hematocrit Auto (Bld) [Volum e fraction]on 01-20-2022 Hematocrit (Bld) [Volume fraction] 46.2 % 40-54 [facility] Work Phone: Laboratory - Chemistry and C hemistry - challengeon 01-20-2022 ALP [Catalytic activity/Vol] 88 U/L 45-117 [facility] Work Phone: ALT [Catalytic activity/Vol] 38 U/L 16-61 [facility] Work Phone: CO2 [Moles/Vol] 29.0 mmol/L 21.0-32.0 [facility] Work Phone: Globulin (S) [Mass/Vol] 3.6 g/dL 2.2-4.2 [facility] Work Phone: Lipase [Catalytic activity/Vol] 109 U/L 73-393 [facility] Work Phone: Urea nitrogen/Creatinine [Mass ratio] 14.4 mg/mg 10-20 [facility] Work Phone: Laboratory - Hematology and Cell countson 01-20-2022 Erythrocyte distribution width (RBC) [Entitic vol] 39.1 fL 35.1-43.9 [facility] Work Phone: Erythrocyte distribution width (RBC) [Ratio] 11.9 % 11.6-14.6 [facility] Work Phone: Immature granulocytes/100 WBC (Bld) 0.400 % 0.0-0.9 [facility] Work Phone: Comment on above: IG% - Immature Granu locytes (promyelocytes, myelocytes and metamyelocytes) > 1% indicates that a LEFT SHIFT is Present. MCH (RBC) [Entitic mass] 31.0 pg 27.0-32.0 [facility] Work Phone: Nucleated RBC/100 WBC (Bld) [Ratio] 0 % 0-5 [facility] Work Phone: MCHC Auto (RBC) [Mass/Vol]on 01-20-2022 MCHC (RBC) [Mass/Vol] 34.4 g/dL 32-36 [facility] Work Phone: No Panel Informationon 01-20 Troponin I High Sensitivity 5 pg/mL 3.0-78.0 [facility] Work Phone: Comment on above: Please Note: New Humaira t Units and Gender Specific Reference Ranges. For more information see Policy Stat Procedure [place] High Sensitivity Troponin (TNIH) and attachments. D-Dimer Quantitative (PE/DVT) < 0.27 FEU/ug/m 0.27-0.49 [facility] Work Phone: Comment on above: NORMAL D-Dimer level (<0.50) indicates no DVT or PE. Estimated Creatinine Clearance Calc 82.43 ml/min [facility] Work Phone: Estimated GFR (MDRD) Amer 85 mL/min >60 [facility] Work Phone: Comment on above: GFR Calc Estimated GFR (MDRD) Non-Af Amer 70 mL/min >60 [facility] Work Phone: Comment on above: Non- GFR Calc Platelets bldon 01-20-2022 Platelets (Bld) [#/Vol] 323 10*3/uL 150-450 [facility] Work Phone: Serum or plasma albumin luis m urement (mass/volume)on 01-20-2022 Albumin [Mass/Vol] 3.6 g/dL 3.2-5.0 [facility] Work Phone: Serum or plasma calcium luis m urement (mass/volume)on 01-20-2022 Calcium [Mass/Vol] 9.1 mg/dL 8.5-10.1 [facility] Work Phone: Serum or plasma creatinine m easurement (mass/volume)on 01-20-2022 Creatinine [Mass/Vol] 1.18 mg/dL 0.70-1.30 [facility] Work Phone: Comment on above: The validity of the calculated GFR & GFRAA in patients over 70 years has not been determined. Clinical correlation is essential. Serum or plasma urea nitroge n measurement (mass/volume)on 01-20-2022 Urea nitrogen [Mass/Vol] 17 mg/dL 7-18 [facility] Work Phone: Thin prep Papanicolaou smear with manual screeningon 01-20-2022 Thin prep Papanicolaou smear with manual screening 15 U/L 15-37 [facility] Work Phone: Thin prep Papanicolaou smear with manual screening 5 5-15 [facility] Work Phone: Vital Signs Date Time Vital Sign Value Performing Clinician Facility 02-26-2025 10:130400 Body height 182.88 cm Owen SMITH Work Phone: [facility] 02-26-2025 10:13-0400 Body mass index (BMI) [Ratio] 30.1 kg/m2 Owen SMITH Work Phone: [facility] 02-26-2025 10:13-0400 Body temperature 97.8 [degF] Owen Wayt PA Work Phone: [facility] 02-26-2025 10:13-0400 Body weight 100.69 kg Owen Wayt PA Work Phone: [facility] 02-26-2025 10:13-0400 Diastolic blood pressure 84 mm[Hg] Owen Wayt PA Work Phone: [facility] 02-26-2025 10:13-0400 Heart rate 75 /min Owen Wayt PA Work Phone: [facility] 02-26-2025 10:13-0400 Respiratory rate 16 /min Owen Wayt PA Work Phone: [facility] 02-26-2025 10:13-0400 SaO2% (BldA) [Mass fraction] 98 % Owen Castillot PA Work Phone: [facility] 02-26-2025 10:13-0400 Systolic blood pressure 132 mm[Hg] Owen Castillot PA Work Phone: [facility] 02-15-2024 10:09-0400 Diastolic blood pressure 94 mm[Hg] Gregory Chaney MD Work Phone: [facility] 02-15-2024 10:09-0400 Heart rate 69 /min Gregory Chaney MD Work Phone: [facility] 02-15-2024 10:09-0400 Systolic blood pressure 149 mm[Hg] Gregory Chaney MD Work Phone: [facility] 02-15-2024 10:04-0400 Body height 182.9 cm Gregory Chaney MD Work Phone: [facility] 02-15-2024 10:04-0400 Body mass index (BMI) [Ratio] 28.48 kg/m2 Gregory Chaney MD Work Phone: [facility] 02-15-2024 10:04-0400 Body weight 95.25 kg Gregory Chaney MD Work Phone: [facility] 01-12-2024 12:52-0400 Blood Pressure Location ISABELLA BAEZA MD [facility] 01-12-2024 12:52-0400 Blood Pressure Method ISABELLA BAEZA MD [facility] 01-12-2024 12:52-0400 Diastolic Blood Pressure Non-Invasive 81 mm[Hg] ISABELLA BAEZA MD [facility] 01-12-2024 12:52-0400 Heart rate 72 /min ISABELLA BAEZA MD [facility] 01-12-2024 12:52-0400 Respiratory rate 18 /min ISABELLA BAEZA MD [facility] 01-12-2024 12:52-0400 Systolic Blood Pressure Non-Invasive 163 mm[Hg] ISABELLA BAEZA MD [facility] 01-12-2024 10:02-0400 Blood Pressure Location ISABELLA BAEZA MD [facility] 01-12-2024 10:02-0400 Blood Pressure Method ISABELLA BAEZA MD [facility] 01-12-2024 10:02-0400 Body temperature 98.24 [degF] ISABELLA BAEZA MD [facility] 01-12-2024 10:02-0400 Diastolic Blood Pressure Non-Invasive 112 mm[Hg] ISABELLA BAEZA MD [facility] 01-12-2024 10:02-0400 Heart rate 74 /min ISABELLA BAEZA MD [facility] 06-07-2024 10:02-0400 Respiratory rate 18 /min ISABELLA BAEZA MD [facility] 01-12-2024 10:02-0400 Systolic Blood Pressure Non-Invasive 160 mm[Hg] ISABELLA BAEZA MD [facility] 01-19-2023 09:59-0400 Body height 182.[address] Darius Asher Work Phone: [facility] 01-19-2023 09:59-0400 Body mass index (BMI) [Ratio] 29.1 kg/m2 Dr. Darius Asher Work Phone: [facility] 01-19-2023 09:59-0400 Body temperature 98.5 [degF] Dr. Darius Asher Work Phone: [facility] 01-19-2023 09:59-0400 Body weight 97.[address] Darius Asher Work Phone: [facility] 01-19-2023 09:59-0400 Diastolic blood pressure 84 mm[Hg] Dr. Darius Asher Work Phone: [facility] 01-19-2023 09:59-0400 Heart rate 80 /min Dr. Darius Asher Work Phone: [facility] 01-19-2023 09:59-0400 Respiratory rate 14 /min Dr. Darius Asher Work Phone: [facility] 01-19-2023 09:59-0400 SaO2% (BldA) [Mass fraction] 96 % Dr. Darius Asher Work Phone: [facility] 01-19-2023 09:59-0400 Systolic blood pressure 132 mm[Hg] Dr. Darius Asher Work Phone: [facility] 04-14-2022 11:10-0400 Diastolic blood pressure 88 mm[Hg] No Primary Care Physician [facility] Work Phone: 04-14-2022 11:10-0400 Systolic blood pressure 138 mm[Hg] No Primary Care Physician [facility] Work Phone: 04-14-2022 10:07-0400 Body height 182.88 cm No Primary Care Physician [facility] Work Phone: 04-14-2022 10:07-0400 Body mass index (BMI) [Ratio] 28.8 kg/m2 No Primary Care Physician [facility] Work Phone: 04-14-2022 10:07-0400 Body temperature 98.5 [degF] No Primary Care Physician [facility] Work Phone: 04-14-2022 10:07-0400 Body weight 96.61 kg No Primary Care Physician [facility] Work Phone: 04-14-2022 10:07-0400 Heart rate 88 /min No Primary Care Physician [facility] Work Phone: 04-14-2022 10:07-0400 Respiratory rate 14 /min No Primary Care Physician [facility] Work Phone: 04-14-2022 10:07-0400 SaO2% (BldA) [Mass fraction] 97 % No Primary Care Physician [facility] Work Phone: 03-31-2022 10:49-0400 Diastolic blood pressure 90 mm[Hg] No Primary Care Physician [facility] Work Phone: 03-31-2022 10:49-0400 Systolic blood pressure 158 mm[Hg] No Primary Care Physician [facility] Work Phone: 03-31-2022 10:01-0400 Body height 182.88 cm No Primary Care Physician [facility] Work Phone: 03-31-2022 10:01-0400 Body mass index (BMI) [Ratio] 29.1 kg/m2 No Primary Care Physician [facility] Work Phone: 03-31-2022 10:01-0400 Body temperature 97.2 [degF] No Primary Care Physician [facility] Work Phone: 03-31-2022 10:01-0400 Body weight 97.52 kg No Primary Care Physician [facility] Work Phone: 03-31-2022 10:01-0400 Heart rate 82 /min No Primary Care Physician [facility] Work Phone: 03-31-2022 10:01-0400 Respiratory rate 16 /min No Primary Care Physician [facility] Work Phone: 03-31-2022 10:01-0400 SaO2% (BldA) [Mass fraction] 98 % No Primary Care Physician [facility] Work Phone: 01-20-2022 14:00-0400 Body height 180.34 cm [facility] Work Phone: 01-20-2022 14:00-0400 Body mass index (BMI) [Ratio] 30.7 kg/m2 [facility] Work Phone: 01-20-2022 14:00-0400 Body temperature 98.3 [degF] [facility] Work Phone: 01-20-2022 14:00-0400 Body weight 100 kg [facility] Work Phone: 01-20-2022 05:36-0400 Diastolic blood pressure 82 mm[Hg] [facility] Work Phone: 01-20-2022 05:36-0400 Heart rate 86 /min [facility] Work Phone: 01-20-2022 05:36-0400 Respiratory rate 25 /min [facility] Work Phone: 01-20-2022 05:36-0400 SaO2% (BldA) [Mass fraction] 96 % [facility] Work Phone: 01-20-2022 05:36-0400 Systolic blood pressure 116 mm[Hg] [facility] Work Phone: Encounters Encounter Date Encounter Type Care Provider Facility Start: 07-08-2025 ambulatory Owen Wayt Facility:[facility] Start: 03-03-2025 Encounter for genera l adult medical examination without abnormal findings Owen Reza [facility] Start: 02-26-2025 End: 02-26-2025 ambulatory Owen Wayluis f SMITH Work Phone: -[facility] Start: 02-26-2025 End: 02-26-2025 Patient encounter procedure Owen Juan Alberto SMITH -[facility] Start: 02-26-2025 Patient encounter status Zakia Castilloluis f SMITH Work Phone: [facility] Start: 02-26-2025 End: 02-26-2025 Patient encounter procedure Owen Juan Alberto SMITH -[facility] Work Phone: Start: 02-26-2025 End: 02-26-2025 ambulatory Owen SMITH Work Phone: -[facility] Start: 02-26-2025 End: 02-26-2025 ambulatory Owen Reza Facility:[facility] Start: 07-24-2024 End: 07-24-2024 ambulatory Owen Juan Alberto Facility:[facility] [place] [place] Start: 02-15-2024 End: 02-15-2024 Office outpatient new 20 minutes Gregory Chaney MD Work Phone: [facility] Comment on above: Gross hematuria Start: 02-15-2024 End: 02-15-2024 ambulatory GREGORY CHANEY [facility] Start: 01-12-2024 End: 01-12-2024 Emergency department patient visit ISABELLA BAEZA MD [facility] Start: 01-09-2024 Telephone encounter Kwame metzger MD Work Phone: [facility] Comment on above: Appointment Request (New patient request; Referral from Dr. Jonatan Reza ) Start: 01-19-2023 End: 01-19-[address] Darius Asher Work Phone: [facility] Work Phone: Start: 01-19-2023 End: 01-19-[address] Darius Asher Work Phone: [facility] Start: 04-14-2022 End: 04-14-2022 ambulatory No Primary Care Physician [facility] Work Phone: Start: 04-14-2022 End: 04-14-2022 Patient encounter procedure No Primary Care Physician [facility]-Laboratory, [facility] Start: 04-14-2022 End: 04-14-2022 Patient encounter procedure No Primary Care Physician [facility] Start: 04-06-2022 End: 04-06-2022 ambulatory No Primary Care Physician [facility] Work Phone: Start: 04-06-2022 End: 04-06-2022 Patient encounter procedure No Primary Care Physician [facility]-Cat Scan, [facility] Start: 03-31-2022 End: 03-31-2022 ambulatory No Primary Care Physician [facility] Work Phone: Start: 03-31-2022 End: 03-31-2022 Patient encounter procedure No Primary Care Physician [facility]-Laboratory, [facility] Start: 03-31-2022 End: 03-31-2022 Patient encounter procedure No Primary Care Physician [facility] Start: 01-20-2022 End: 01-20-2022 [facility] Date Procedure Procedure Detail Performing Clinician Start: 02-26-2025 Prostate specific an tigen measurement Owen SMITH Work Phone: Comment on above: This test was perfor med using the [employer] tPSA method. Measured values of a patient sample can vary depending on the testing procedure used. PSA values determined on patient samples by different testing procedures cannot be used interchangeably. If there is a change in PSA assays while monitoring therapy, sequential testing should be performed to confirm baseline values. Start: 02-15-2024 Urnls dip stick/tabl et rgnt auto w/o microscopy Gregory Chaney MD Work Phone: Start: 04-06-2022 Computed tomography of abdomen and pelvis with contrast No Primary Care Physician Start: 01-20-2022 Plain chest X-ray Plan of Treatment Date Care Activity Detail Author Start: 2034 RSV Immunization aged 60 or older (1 - 1-dose 60+ series) RSV Immunization aged 60 or older (1 - 1-dose 60+ series) [facility] Start: 02-26-2025 Complete blood count [facility] Start: 02-26-2025 Comprehensive metabolic 2000 panel - Serum or Plasma [facility] Start: 02-26-2025 Lipid 1996 panel - Serum or Plasma [facility] Start: 02-26-2025 Prostate specific antigen measurement [facility] Start: 04-07-[address] [facility] Start: 2024 Zoster Vaccines (1 of 2) Zoster Vaccines (1 of 2) [facility] Start: 02-15-2024 End: 02-15-2024 Patient encounter procedure 02/15/2024 10:00 AM EDT Office Visit [facility] [address] [place] [address] Gregory Chaney MD [address] [place], [place] [id number] [facility] Start: 04-07-2023 COVID-19 Vaccine ( season) COVID-19 Vaccine ( season) [facility] Start: 03-31-2022 Patient referral [facility] Work Phone: Start: 1993 DTaP/Tdap/Td Vaccines (1 - Tdap) DTaP/Tdap/Td Vaccines (1 - Tdap) [facility] Start: 1993 Hepatitis B Vaccines (1 of 3 - 19+ 3-dose series) Hepatitis B Vaccines (1 of 3 - 19+ 3-dose series) [facility] Start: 1992 Diabetes mellitus screening Diabetes Screening [facility] Start: 1992 Hepatitis C screening Hepatitis C Screening [facility] Start: 1986 Depression Screening Depression Screening [facility] Start: 1975 MMR Vaccines (1 of 1 - Standard series) MMR Vaccines (1 of 1 - Standard series) [facility] Start: 1974 HIV screening HIV Screening [facility] Start: 1974 Lip[address] Lipid Panel [facility] Start: 1974 Screening for malignant neoplasm of colon [facility] Alanine aminotransfe rase [Enzymatic activity/volume] in Serum or Plasma [facility] Albumin [Mass/volume ] in Serum or Plasma [facility] Alkaline phosphatase [Enzymatic activity/volume] in Serum or Plasma [facility] Anion gap in Serum o r Plasma [facility] Bilirubin, total measurement [facility] BUN/Creatinine ratio [facility] Calcium [Mass/volume ] in Serum or Plasma [facility] Carbon dioxide, tota l [Moles/volume] in Central venous blood [facility] Cholesterol [Mass/vo lume] in Serum or Plasma [facility] Cholesterol in HDL [Mass/volume] in Serum or Plasma [facility] Creatinine [Mass/vol ume] in Serum or Plasma [facility] CT Abdomen and Pelvi s W contrast IV [facility] Work Phone: Erythrocyte mean corpuscular volume determination [facility] Glucose [Mass/volume ] in Serum or Plasma [facility] Hematocrit [Volume Fraction] of Blood [facility] Hemoglobin [Mass/vol ume] in Blood [facility] Leukocytes [#/volume ] in Blood [facility] Lipid 1996 panel - S johanny or Plasma [facility] Work Phone: Low density lipoprot ein cholesterol measurement [facility] Mean corpuscular hem oglobin concentration determination [facility] Mean corpuscular hem oglobin determination [facility] Measurement of renal function [facility] Patient Education ED Chest Pain, Uncertain Cause [facility] Work Phone: Patient referral [facility] Work Phone: Platelets [#/volume] in Blood [facility] Potassium measurement [facility] Red blood cell count [facility] Red cell distributio n width determination [facility] Serum chloride measurement [facility] Sodium measurement [facility] Total cholesterol:HD L ratio measurement [facility] Total protein measurement [facility] Triglycerides measurement [facility] Urea nitrogen [Mass/ volume] in Serum or Plasma [facility] VLDL cholesterol measurement [facility] Payers Date Payer Category Payer Unknown [id number] 2024 Self-pay [id number] 2024 Unknown [id number] 1975 Unknown [id number] Unknown [id number] Unknown [id number] Unknown [id number] [id number] Unknown [id number] Unknown [id number] Social History Date Type Detail Facility Start: 01-20-2022 End: 01-18-2023 Tobacco smoking status NHIS Unknown if ever smoked [facility] Start: 1975 Sex Assigned At Male [facility] Start: 1975 Sex Assigned At Not on file [facility] Gender identity Not on file [facility] Start: 05-20-2019 End: 11-15-2023 Tobacco smoking status Never smoked tobacco (finding) [facility] Functional Status Date Assessment Result Facility 01-12-2024 Functional Status Independent [facility] 01-12-2024 Functional Status ID band on, Call device within reach, Bed in low position, Wheels locked, Upper/Half-Length side-rails up, Safety level maintained [facility] Mental Status Date Assessment Result Facility 01-12-2024 Mental Status Orientation Oriented x 4 [facility] 01-12-2024 Mental Status [facility] 01-20-2022 Cognitive function Voice/Name [facility] Work Phone: Clinical Notes 01-09-2024 to 02-26-2025 Note Date & Type Note Facility 02-26-2025 Evaluation note Diagnosis Onset Date Resolution Colon cancer screening acute Ju ly 2024 9:57am Essential hypertension acute Ju ly 2024 9:57am Mixed hyperlipidemia acute February 26, 2025 9:57am Prostate cancer screening acute February 26, 2025 9:57am Renal calculi acute February 26, 2025 9:57am [facility] Work Phone: [phone] 292-489707-11-2024 History of Present illness Narrative* Gregory Chaney MD - 02/15/2024 10:00 AM EDT Images from the original note were not included. Gregory Chaney MD 02/15/2024 at 10:20 AM UROLOGY INITIAL OFFICE VISIT PATIENT NAME: Hussein Hunter DATE OF : 1975 TODAY'S DATE: 02/15/2024 Chief Complaint: Chief Complaint Patient presents with New Patient Nephrolithiasis States he has 11mm stone in his right kidney Blood in Urine Gross-has had 2 episodes of gross hematuria since seen in ER HISTORY OF PRESENT ILLNESS: Mr. Hunter is a 48 y.o. male who presents with right renal calculus He was seen in [facility], diagnosed with bacterial prostatitis, gross hematuria He did have right flank pain CT done in ER showing 11mm right renal calculus He does have history of previous kidney stone REVIEW OF SYSTEMS: Review of Systems Gastrointestinal: Negative for abdominal distention and abdominal pain. Genitourinary: Positive for flank pain and hematuria. Past Medical History: No past medical history on file. Past Surgical History: No past surgical history on file. Current Medications: Prior to Admission medications Medication Sig Start Date End Date Taking? Authorizing Provider losartan (Cozaar) 50 MG tablet Take 50 mg by mouth daily. 02/09/24 Yes Historical Provider, Allergies: Patient has no known allergies. Social History: Social History Socioeconomic History Marital status: Spouse name: Not on file Number of children: Not on file Years of education: Not on file Highest education level: Not on file Occupational History Not on file Tobacco Use Smoking status: Not on file Smokeless tobacco: Not on file Substance and Sexual Activity Alcohol use: Not on file Drug use: Not on file Sexual activity: Not on file Other Topics Concern Not on file Social History Narrative Not on file Social Determinants of Health Financial Resource Strain: Not on file Food Insecurity: Not on file Transportation Needs: Not on file Physical Activity: Not on file Stress: Not on file Social Connections: Not on file Intimate Partner Violence: Not on file Housing Stability: Not on file Family History: @FAMHXNH@ PHYSICAL EXAM: VITALS: BP (!) 149/94 Pulse 69 Ht 6' (1.829 m) Wt 210 lb (95.3 kg) BMI 28.48 kg/m Physical Exam Constitutional: Appearance: Normal appearance. Neurological: Mental Status: He is alert. DATA: WBC No results found for: WBC BMP No results found for: NA, K, CL, CO2, BUN, CREATININE, GLUCOSE, CALCIUM PSA No results found for: PSA UA Lab Results Component Value Date UROBILINOGEN 0.2 02/15/2024 BILIRUBINUR Negative 02/15/2024 Review: Records reviewed from [facility] I discussed the procedure of ureteroscopy. I discussed the risks, benefits and alternatives to this. I discussed the possible complications which could include bleeding, infection and stricture disease. I discussed the possible need for stenting. I explained the need for stent and duration will be determined at that time of surgery. A string may be left. I explained laser lithotripsy as well. I explained this and compared and contrasted it to other procedures such as ESWL and PCNL. She understands this and wishes to proceed forward. Assessment and Plan Diagnoses and all orders for this visit: Gross hematuria - AMB POC URINALYSIS DIP STICK AUTO W/O MICRO Obtain CT results from [facility] Given gross hematuria, he will need cytoscopy Given the large right renal calculus, he potentially will need laser lithotripsy vs eswl So in order to evaluate stone and work up gross hematuria, will plan on cytoscopy, retrograde pyelograms, right ureteroscopy and laser lithotripsy, stent No follow-ups on file. Gregory Chaney MD 02/15/24 10:20 AM documented in this [facility]06-07-2024 Hospital Discharge instructions Patient Education 01/12/2024 12:15:47 Kidney Stone, Undescended (No Symptoms) Kidney Stone, Undescended, No Symptoms A kidney stone (nephrolithiasis) begins as tiny crystals that form inside the kidney where urine ismade. Most kidney stones enlarge to about 1/8 to 1/4 inch in size before leaving the kidney and moving toward the bladder. There are 4 types of kidney stones. Eighty percent are calcium stones mostlycalcium oxalate but also some with calcium phosphate. The other 3 types include uric acid stones, struvite stones (from a preceding infection), and rarely, cystine stones. When the stone breaks free and begins to move down the ureter (the narrow tube joining the kidney to the bladder) it often causes sharp back and side pain, often with nausea and vomiting. When the stone reaches the bladder, the pain stops. Once in your bladder, the kidney stone may pass through theurethra (urinary opening) while you are urinating (which may cause pain to start again). Or, it maybreak into such small fragments that you don t notice it passing. Your kidney stone is still inside the kidney. There is no way to predict how long it will be beforeit breaks free and causes any symptoms. Most stones will pass on their own within a few hours to a few days (sometimes longer). You may notice a red, pink, or brown color to your urine. This is normal while passing a kidney stone. A large stone may not pass on its own and may require special procedures to remove it. These procedures include lithotripsy, which uses ultrasound waves to break up thestone; ureteroscopy, which pushes a thin, basket-like instrument through the urethra and bladder and into the ureter to pull out the stone; and various types of direct surgery through the skin. Home care The following guidelines will help you care for yourself at home: Drink plenty of fluids. This increases urine flow and reduces the risk of further stone formation. Healthy adults (no heart/liver/kidney disease) who have had a kidney stone should drink 12, 8-ounce glasses of fluids per day. Most of this should be water. The goal is to produce 1.5 to 2 quarts of almost colorless urine per 24 hours. You should collect your urine in a container and then drain it through a strainer to collect any stones or pieces of stones. Take these to your healthcare provider to help identify your specific typeof stone to aid in future treatment and dietary changes. Try to stay as active as possible since this will help the stone pass. Don't stay in bed unless youhave pain that prevents you from getting up. If you develop pain, you may take ibuprofen or naproxen for pain, unless another medicine was prescribed. If you have chronic liver or kidney disease or ever had a stomach ulcer or GI bleeding, talk with your healthcare provider before using these medicines. Prevention Each year, there is a 5% to 10% chance that a new stone will form (50% chance over the next 5 to 7 years). The risk is higher if you have a family history of kidney stones or have certain chronic illnesses such as hypertension, obesity, or diabetes. However, there are lifestyle and dietary changes that you can make to reduce the risk of a recurrence. Most kidney stones are made of calcium. The following is advice for preventing a recurrence of calcium stones. If you don t know the type of stone you have, follow this advice until the cause of yourstone is determined. Things that help: The most important thing you can do is to drink plenty of fluids each day, as described above. Certain foods, such as wheat, rice, rye, barley and beans, contain phytate, a compound that may lower the risk of recurrence of any type of stone. Eat more fruits and vegetables (especially those high in potassium). Eat foods high in natural citrate like fruit and fruit juices (using low sugar). Low calcium contributes to the formation of calcium type kidney stones. Eat a normal calcium diet and speak with your doctor if you are taking calcium supplements. It may be detrimental to reduce your calcium intake. New research shows that eating calcium-rich and oxalate-rich foods together lowersyour risk of stones by binding the minerals in the stomach and intestines before they can reach thekidneys. Limit salt intake to 2 grams (1 teaspoon) per day. Use limited amounts when cooking, and don t add salt at the table. Processed and canned foods are usually high in salt. Spinach, rhubarb, peanuts, cashews and almonds, grapefruit and grapefruit juice are all high oxalate foods and should be reduced, or eaten with calcium rich foods. These foods include dairy, dark leafy greens, soy products, and calcium enriched foods. Reducing the amount of animal meat in your diet may lower your risk of uric acid stones. Don't have excess sugar (sucrose) and fructose (sweetener in many soft drinks) in your diet. If you take vitamin C as a supplement, do not take more than 1,000 milligrams (mg) per day. A dietitian or your healthcare provider can provide you with specific details about dietary changesto prevent kidney stone recurrence. Follow-up care Follow up with your healthcare provider, or as advised. Talk with your healthcare provider about urine and blood tests to find out the cause of your stone. If you had an X-ray, CT scan, or other diagnostic test, you will be notified of any findings that may affect your care. Call 911 Call 911 if you have any of these: Weakness, dizziness, or fainting When to seek medical advice Call your healthcare provider right away if any of the these occur: Severe sharp back or side pain Repeated vomiting or unable to keep down fluids Fever of 100.4 F (38 C) or higher, or as directed by your health care provider Blood (pink or red color) in your urine Foul smelling or cloudy urine Unable to pass urine for 8 hours or increasing bladder pressure [id number] [employer] [address] [place] [address]. All rights reserved. This information is not intended as a substitute for professional medical care. Always follow yourhealthcare professional's instructions. 01/12/2024 12:15:37 Hematuria Blood in the Urine Blood in the urine (hematuria) has many possible causes. If it occurs after an injury (such as a car accident or fall), it is most often a sign of bruising to the kidney or bladder. Common causes of blood in the urine include urinary tract infections, kidney stones, inflammation, tumors, or certainother diseases of the kidney or bladder. Menstruation can cause blood to appear in the urine sample, although it is not coming from the urinary tract. If only a trace amount of blood is present, it will show up on the urine test, even though the urine may be yellow and not pink or red. This may occur with any of the above conditions, as well as heavy exercise or high fever. In this case, your doctor may want to repeat the urine test on another day. This will show if the blood is still present. If it is, then other tests can be done to find out the cause. Home care Follow these home care guidelines: If your urine does not appear bloody (pink, brown or red) then you do not need to restrict your activity in any way. If you can see blood in your urine, rest and avoid heavy exertion until your next exam. Do not use aspirin, blood thinners, or anti-platelet or anti- inflammatory medicines. These include ibuprofen and naproxen. These thin the blood and may increase bleeding. Follow-up care Follow up with your healthcare provider, or as advised. If you were injured and had blood in your urine, you should have a repeat urine test in 1 to 2 days. Contact your doctor for this test. A radiologist will review any X-rays that were taken. You will be told of any new findings that mayaffect your care. When to seek medical advice Call your healthcare provider right away if any of these occur: Bright red blood or blood clots in the urine (if you did not have this before) Weakness, dizziness or fainting New groin, abdominal, or back pain Fever of 100.4 F (38 C) or higher, or as directed by your healthcare provider Repeated vomiting Bleeding from the nose or gums or easy bruising [id number] [employer] [address] [place] [address]. All rights reserved. This information is not intended as a substitute for professional medical care. Always follow yourhealthcare professional's instructions. 01/12/2024 12:15:36 Bacterial Prostatitis Bacterial Prostatitis The prostate gland is part of the male reproductive system. The gland sits just below the bladder. It surrounds the urethra, the tube that carries urine and semen out of the body. Bacterial prostatitis is an infection of the prostate. It causes the prostate to become painful and swollen. The problem often comes on suddenly, and can make you very sick. But it can be treated. Causes and symptoms Bacterial prostatitis is due to infection with bacteria (germs). This infection makes the prostate swell. This squeezes the urethra, narrowing or blocking it. Symptoms may be severe. They can include: Fever and chills Low back pain Having to urinate often Pain with urination A less forceful urine stream Need to strain to urinate Inability to urinate Treatment The infection is treated with antibiotics. Take all of the medicine until it's gone, even if you start to feel better. If you don t, the infection may come back and be harder to treat. Your healthcare provider may also suggest other care, such as resting and drinking more fluid. Closely follow any instructions you are given. Chronic bacterial prostatitis Prostatitis can turn into a chronic (ongoing) problem. In this case, the prostate stays swollen andinflamed despite treatment with antibiotics. One possible cause is repeated infections. Symptoms include pain and burning with urination and needing to urinate often. It may also cause lower abdomen or back pain. If you have this problem, your healthcare provider will discuss a treatment plan with you. Treatment usually consists of a 6 to 12 week course of antibiotics. [id number] [employer] [address] [place] [address]. All rights reserved. This information is not intended as a substitute for professional medical care. Always follow yourhealthcare professional's instructions. Follow Up Care 01/12/2024 09:53:16 With:JONATAN REZA Address: [address] [place] [phone] When:3-7 days With:GREGORY CHANEY MD Address: [address] [place] [phone] When:3-7 days [facility] 06-07-2024 Note Discharge Instructions Thank you for allowing [facility] to assist you with your healthcare needs. The following is importantdischarge information regarding your hospital visit. Diagnosis from Today's Visit Hematuria Kidney stone Prostatitis What to Do Next Instructions from Your Care Team No qualifying data available. Post Acute Orders No qualifying data available. You Need to Schedule the Following Appointments Follow Up with JONATAN REZA When:Within 3-7 days Where:[address] [place] [address] [address] [place] [address] [phone] Follow Up with GREGORY CHANEY MD When:Within 3-7 days Where:[address] [place] [phone] Allergies NKA Medications Please ask your primary doctor or pharmacist before taking any other medication not listed, including over the counter drugs, herbal medications, vitamins and or supplements as they may interact withyour home medications. What How Much When Why Instructions Last Dose New acetaminophen-oxyCODONE (Percocet 5 mg-325 mg oral tablet) 1 tab(s) by mouth Every 6 hours as needed for for pain Prostatitis Duration: 3 Days Pickup at [facility] New ciprofloxacin (Cipro 500 mg oral tablet) 1 tab(s) by mouth Every 12 hours Duration: 14 Days Pickup at [facility] Unchanged ondansetron (Zofran 4 mg oral tablet) 1 tab(s) by mouth Every 8 hours as needed for Nausea Unchanged tamsulosin (Flomax 0.4 mg oral capsule) 1 cap by mouth Once a day Pharmacy Information [facility]: [address], [place] [phone] Please take this list to your next doctor s visit. Bring all medications you take, including over the counter medications, herbals and other supplements with you to your doctor s visit. Patients and families are reminded to discard old lists and to update any records with all medication providers or retail pharmacies. Education Materials Kidney Stone, Undescended, No Symptoms A kidney stone (nephrolithiasis) begins as tiny crystals that form inside the kidney where urine ismade. Most kidney stones enlarge to about 1/8 to 1/4 inch in size before leaving the kidney and moving toward the bladder. There are 4 types of kidney stones. Eighty percent are calcium stones mostlycalcium oxalate but also some with calcium phosphate. The other 3 types include uric acid stones, struvite stones (from a preceding infection), and rarely, cystine stones. When the stone breaks free and begins to move down the ureter (the narrow tube joining the kidney to the bladder) it often causes sharp back and side pain, often with nausea and vomiting. When the stone reaches the bladder, the pain stops. Once in your bladder, the kidney stone may pass through theurethra (urinary opening) while you are urinating (which may cause pain to start again). Or, it maybreak into such small fragments that you don t notice it passing. Your kidney stone is still inside the kidney. There is no way to predict how long it will be beforeit breaks free and causes any symptoms. Most stones will pass on their own within a few hours to a few days (sometimes longer). You may notice a red, pink, or brown color to your urine. This is normal while passing a kidney stone. A large stone may not pass on its own and may require special procedures to remove it. These procedures include lithotripsy, which uses ultrasound waves to break up thestone; ureteroscopy, which pushes a thin, basket-like instrument through the urethra and bladder and into the ureter to pull out the stone; and various types of direct surgery through the skin. Home care The following guidelines will help you care for yourself at home: Drink plenty of fluids. This increases urine flow and reduces the risk of further stone formation. Healthy adults (no heart/liver/kidney disease) who have had a kidney stone should drink 12, 8-ounce glasses of fluids per day. Most of this should be water. The goal is to produce 1.5 to 2 quarts of almost colorless urine per 24 hours. You should collect your urine in a container and then drain it through a strainer to collect any stones or pieces of stones. Take these to your healthcare provider to help identify your specific typeof stone to aid in future treatment and dietary changes. Try to stay as active as possible since this will help the stone pass. Don't stay in bed unless youhave pain that prevents you from getting up. If you develop pain, you may take ibuprofen or naproxen for pain, unless another medicine was prescribed. If you have chronic liver or kidney disease or ever had a stomach ulcer or GI bleeding, talk with your healthcare provider before using these medicines. Prevention Each year, there is a 5% to 10% chance that a new stone will form (50% chance over the next 5 to 7 years). The risk is higher if you have a family history of kidney stones or have certain chronic illnesses such as hypertension, obesity, or diabetes. However, there are lifestyle and dietary changes that you can make to reduce the risk of a recurrence. Most kidney stones are made of calcium. The following is advice for preventing a recurrence of calcium stones. If you don t know the type of stone you have, follow this advice until the cause of yourstone is determined. Things that help: The most important thing you can do is to drink plenty of fluids each day, as described above. Certain foods, such as wheat, rice, rye, barley and beans, contain phytate, a compound that may lower the risk of recurrence of any type of stone. Eat more fruits and vegetables (especially those high in potassium). Eat foods high in natural citrate like fruit and fruit juices (using low sugar). Low calcium contributes to the formation of calcium type kidney stones. Eat a normal calcium diet and speak with your doctor if you are taking calcium supplements. It may be detrimental to reduce your calcium intake. New research shows that eating calcium-rich and oxalate-rich foods together lowersyour risk of stones by binding the minerals in the stomach and intestines before they can reach thekidneys. Limit salt intake to 2 grams (1 teaspoon) per day. Use limited amounts when cooking, and don t add salt at the table. Processed and canned foods are usually high in salt. Spinach, rhubarb, peanuts, cashews and almonds, grapefruit and grapefruit juice are all high oxalate foods and should be reduced, or eaten with calcium rich foods. These foods include dairy, dark leafy greens, soy products, and calcium enriched foods. Reducing the amount of animal meat in your diet may lower your risk of uric acid stones. Don't have excess sugar (sucrose) and fructose (sweetener in many soft drinks) in your diet. If you take vitamin C as a supplement, do not take more than 1,000 milligrams (mg) per day. A dietitian or your healthcare provider can provide you with specific details about dietary changesto prevent kidney stone recurrence. Follow-up care Follow up with your healthcare provider, or as advised. Talk with your healthcare provider about urine and blood tests to find out the cause of your stone. If you had an X-ray, CT scan, or other diagnostic test, you will be notified of any findings that may affect your care. Call 911 Call 911 if you have any of these: Weakness, dizziness, or fainting When to seek medical advice Call your healthcare provider right away if any of the these occur: Severe sharp back or side pain Repeated vomiting or unable to keep down fluids Fever of 100.4 F (38 C) or higher, or as directed by your health care provider Blood (pink or red color) in your urine Foul smelling or cloudy urine Unable to pass urine for 8 hours or increasing bladder pressure [id number] [employer] [address] [place] [address], [place] [address]. All rights reserved. This information is not intended as a substitute for professional medical care. Always follow yourhealthcare professional's instructions. Blood in the Urine Blood in the urine (hematuria) has many possible causes. If it occurs after an injury (such as a car accident or fall), it is most often a sign of bruising to the kidney or bladder. Common causes of blood in the urine include urinary tract infections, kidney stones, inflammation, tumors, or certainother diseases of the kidney or bladder. Menstruation can cause blood to appear in the urine sample, although it is not coming from the urinary tract. If only a trace amount of blood is present, it will show up on the urine test, even though the urine may be yellow and not pink or red. This may occur with any of the above conditions, as well as heavy exercise or high fever. In this case, your doctor may want to repeat the urine test on another day. This will show if the blood is still present. If it is, then other tests can be done to find out the cause. Home care Follow these home care guidelines: If your urine does not appear bloody (pink, brown or red) then you do not need to restrict your activity in any way. If you can see blood in your urine, rest and avoid heavy exertion until your next exam. Do not use aspirin, blood thinners, or anti-platelet or anti- inflammatory medicines. These include ibuprofen and naproxen. These thin the blood and may increase bleeding. Follow-up care Follow up with your healthcare provider, or as advised. If you were injured and had blood in your urine, you should have a repeat urine test in 1 to 2 days. Contact your doctor for this test. A radiologist will review any X-rays that were taken. You will be told of any new findings that mayaffect your care. When to seek medical advice Call your healthcare provider right away if any of these occur: Bright red blood or blood clots in the urine (if you did not have this before) Weakness, dizziness or fainting New groin, abdominal, or back pain Fever of 100.4 F (38 C) or higher, or as directed by your healthcare provider Repeated vomiting Bleeding from the nose or gums or easy bruising [employer] [address] [place] [address]. All rights reserved. This information is not intended as a substitute for professional medical care. Always follow yourhealthcare professional's instructions. Bacterial Prostatitis The prostate gland is part of the male reproductive system. The gland sits just below the bladder. It surrounds the urethra, the tube that carries urine and semen out of the body. Bacterial prostatitis is an infection of the prostate. It causes the prostate to become painful and swollen. The problem often comes on suddenly, and can make you very sick. But it can be treated. Causes and symptoms Bacterial prostatitis is due to infection with bacteria (germs). This infection makes the prostate swell. This squeezes the urethra, narrowing or blocking it. Symptoms may be severe. They can include: Fever and chills Low back pain Having to urinate often Pain with urination A less forceful urine stream Need to strain to urinate Inability to urinate Treatment The infection is treated with antibiotics. Take all of the medicine until it's gone, even if you start to feel better. If you don t, the infection may come back and be harder to treat. Your healthcare provider may also suggest other care, such as resting and drinking more fluid. Closely follow any instructions you are given. Chronic bacterial prostatitis Prostatitis can turn into a chronic (ongoing) problem. In this case, the prostate stays swollen andinflamed despite treatment with antibiotics. One possible cause is repeated infections. Symptoms include pain and burning with urination and needing to urinate often. It may also cause lower abdomen or back pain. If you have this problem, your healthcare provider will discuss a treatment plan with you. Treatment usually consists of a 6 to 12 week course of antibiotics. [employer] [address] [place] [address]. All rights reserved. This information is not intended as a substitute for professional medical care. Always follow yourhealthcare professional's instructions. Additional Information VACCINATE! IT SAVES LIVES! Members of the community who have not yet received the COVID-19 vaccine and would like to receive it can visit one of [facility] vaccine clinics. There are many vaccine clinic locations within the [facility]. For locations and available times, please visit [email or web address]/. It is important to note that some COVID mobile vaccine clinics are held outdoors and may be canceled in rainy or stormy conditions. To learn more about pediatric vaccinations (ages 5-11), we invite you to visit the [facility] webpage. [email or web address] learn more about the COVID-19 vaccine, we invite you to visit the CDC website for a list of frequently asked questions. https://www.cdc.gov/coronavirus/2019-ncov/vaccines/faq.html [facility] Patient Portal Access Instructions: Stay connected with your healthcare team and access your personal medical information anytime with the [email or web address] Patient Portal. If you would like a full copy of your medical records please contact the [facility] Medical Records Department Monday through Monday between 8a.m. and 4:30p.m. Please follow the directions below to access the portal: 1.Access the email account you provided upon registration to the hospital.2.Look for an invitation email from [facility].3.Open the email and access the invitation link: Accept Invitation to [email or web address].Fill in the required franks to create your account. Sign into www.[email or web address] with your username and password that you created in the above steps to stay up to date. You can then view a summary of results, a summary of your visits, and the ability to download your summaries to your computer or send the information securely to a physician. Remember that your healthcare information is confidential, so carefully consider who you will allow to register on the [email or web address] Patient Portal for access to your information. You can also access the [facility] Patient Portal on the [employer] mel. Simply click on Health Records under [place] and then click on the Silva logo. HOW TO SAFELY DISPOSE OF PRESCRIPTION MEDICATIONS Please use one of the following methods to safely dispose of your unused medications. 1.Use a drug disposal kit: the drug disposal pouch allows you to safely discard your old and unuseddrugs. Ask your nurse to give you one when you are discharged.2.Visit a local take-back location: Many local pharmacies and police departments have programs that collect old and unwanted prescriptiondrugs. Call your local pharmacy or go to http://Enuygun.com.IntraStage/2X5Id3u to find one close to you.3.Make use of household items: Use cat litter or old coffee grounds to dispose medications if other options arenot available. Mix your drugs with these household products, seal them in an airtight container andthrow it into the garbage. Call [facility]: [phone] to be sure your drugs can be disposed of in this way. Some medicines may require a different approach.4.Never flush your medications down the toilet. IF YOU HAVE BEEN PRESCRIBED AN OPIOIDS FOR PAIN If you have been prescribed an opioid (such as hydrocodone, oxycodone or morphine), it is critical to understand the possible side effects and risks of opioid pain medications. Even when taken as directed, opioids can have several side effects including: Tolerance, meaning you might need to take more of a medication for the same pain relief. Nausea, vomiting and/or constipation. Sleepiness, dizziness, dry mouth, confusion, depression or itching. Physical dependence, meaning you have withdrawal symptoms when a medication is stopped ? this can develop within a few days. KNOW YOUR RESPONSIBILITIES It is important to know exactly how much and how often to take the opioid pain medications you are prescribed. Never take opioids in higher amounts or more often than prescribed. Do not combine opioids with alcohol or other drugs that cause drowsiness, such as benzodiazepines, also known as benzos,including diazepam and alprazolam, muscle relaxants or sleep aids. Never sell or share prescriptionopioids. This is illegal. Store opioids in a secure place and out of reach of others (including children, family, friends and visitors). The last page(s) of this document has been signed and retained as a CHART COPY Signatures Patient Education Materials Kidney Stone, Undescended (No Symptoms) Hematuria Bacterial Prostatitis Medication Leaflets My discharge plan and instructions have been reviewed and explained to me and IKAVITHA BRIAN M understand my current condition and have read and understand these discharge instructions. I have received a written copy of the plan/instructions. If I have questions, I am aware that I should contact my doctor. 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 Multiplanar reformatted images are provided for review. Automated exposure control, iterative reconstruction, and/or weight based adjustment of the mA/kV was utilized to reduce the radiation dose to as low as reasonably achievable. COMPARISON: May 20, 2019 HISTORY: ORDERING SYSTEM PROVIDED HISTORY: Reason for Exam: rlq abd pain started this morning hx of prostatitis, r/o infection/kidney stone FINDINGS: Very minor degenerative changes are noted in the spine. No other osseous abnormality identified. Small areas of dependent lower lobe atelectasis are noted. No focal liver lesions seen. Spleen, adrenal glands and pancreas are unremarkable. There is a stone in the right renal pelvis measuring 11 mm in size, without significant proximal dilatation. More distally, the right ureter is unremarkable. No left ureteral or left renal stone seen. No other kidney abnormality. No adenopathy, free air or free fluid seen. The urinary bladder is grossly normal. Small bilateral fat containing inguinal hernias are noted, right greater than left. Very minor scattered colonic diverticulosis is evident, without diverticulitis. No other GI tract abnormality is visible. No additional contributory finding. IMPRESSION: 1. 11 mm right renal pelvis stone without evidence for hydronephrosis. 2. Mild scattered colonic diverticulosis without diverticulitis. 3. No other potential acute finding. Interpreted by: Josué Humphrey MD Preliminary Report By: Josué Humphrey MD Electronically signed By Josué Humphrey MD Dictated Date: 01/12/2024 11:22:02 AM Prelim Date: 01/12/2024 11:24:43 AM Sign Date: 01/12/2024 11:24:43 AM Ordering Provider: [facility] [id number] Telephone encounter Note* Telephone Encounter - Shahrzad Grace - 01/10/2024 9:02 AM EDT Pt called back, pt schedule first available with Dr. Chaney on 02/15/24 in [place] and placed onwait list for [facility] in case of a cancellation. [id number] Miscellaneous Notes* Telephone Encounter - Shahrzad Grace - 01/10/2024 9:02 AM EDT Pt called back, pt schedule first available with Dr. Chaney on 02/15/24 in [place] and placed onwait list for [facility] in case of a cancellation. * Telephone Encounter - Shahrzad Grace - 01/10/2024 8:33 AM EDT Pt's called to make him an appt for hematuria and possible kidney stone. She stated that he has a referral, which was found in [employer]. Pt lives in [place], [place] is the closest office.First available there is 03/20/24. First available in [place] office is 02/15/24. states she will talk to the pt and see if he can wait that long to be seen and will andrew back. * Telephone Encounter - Ce Elias - 01/09/2024 3:28 PM EDT Name of Caller: Felicity (Spouse) Contact Reason for Appointment: Felicity is requesting a call back to schedule a new patient appointment for Hussein and states that a referral was sent from Dr. Jonatan Reza. Please contact Felicity and advise. Office Name: [facility] Urology documented in this encounterSKettering Health [id number] NotePt's called to make him an appt for hematuria and possible kidney stone. She stated that he has a referral, which was found in [employer]. Pt lives in [facility] is the closest office. First available there is 03/20/24. First available in [place] office is 02/15/24. states she will talk to the pt and see if he can wait that long to be seen and will andrew back.[facility]06-05-2024 Telephone encounter Note* Telephone Encounter - Shahrzad Grace - 01/10/2024 8:33 AM EDT Pt's called to make him an appt for hematuria and possible kidney stone. She stated that he has a referral, which was found in [employer]. Pt lives in [facility] is the closest office.First available there is 03/20/24. First available in [place] office is 02/15/24. states she will talk to the pt and see if he can wait that long to be seen and will andrew back. [facility] [id number] Telephone encounter Note* Telephone Encounter - Ce Elias - 01/09/2024 3:28 PM EDT Name of Caller: Felicity (Spouse) Contact Reason for Appointment: Felicity is requesting a call back to schedule a new patient appointment for Hussein and states that a referral was sent from Dr. Jonatan Reza. Please contact Felicity and advise. Office Name: [facility]rology [facility] No data available for this section [facility] Evaluation noteNo assessment information available [facility] Work Phone: Evaluation note* Diagnosis Onset Date Resolution Status Essential hypertension acute Lower abdominal pain acute Screening for colon cancer n oneactive Screening for cardiovascular condition noneactive Establishing care with new doctor, encounter for noneactive [facility] Work Phone: Evaluation note* Diagnosis Onset Date Resolution Status Essential hypertension acute Lower abdominal pain acute Screening for colon cancer n oneactive Screening for cardiovascular condition noneactive Establishing care with new doctor, encounter for noneactive Essential hypertension acute Lower abdominal pain acute Screening for cardiovascular condition noneactive Fatty liver noneactive [facility] Work Phone: Evaluation note* Diagnosis Onset Date Resolution Status Essential hypertension acute Mixed hyperlipidemia acute Fatty liver noneactive [facility] Work Phone: Evaluation note* Diagnosis Gross hematuria documented in this encounter [facility] HealthEvaluation note* Diagnosis Onset Date Resolution Status Admit Date Colon cancer screening acute Ju ly 2024 9:57am [facility] Work Phone: Hospital Discharge instructions Additional Instructions Please keep a blood pressure journal based on your elevated readings at today's visit. 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, 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 LOWER ABD PAIN Reason for Visit Essential hypertensi on Lower abdominal pain Screening for colon cancer Screening for cardiovascular condition Establishing care with new doctor, encounter for Chief Complaint 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, 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 LOWER ABD PAIN 2 WK FU Reason for Visit Essential hypertensi on Lower abdominal pain Screening for colon cancer Screening for cardiovascular condition Establishing care with new doctor, encounter for Essential hypertension Lower abdominal pain Screening for cardiovascular condition Fatty liver Chief Complaint 6 M FU Reason for Visit Essential hypertensi on Mixed hyperlipidemia Fatty liver Chief Complaint Admit Date FOLLOW UP February 26, 2025 9:57 am Reason for Visit Admit Date Colon cancer screening February 26, 2025 9 :57am Reason for Visit Admit Date Colon cancer screening February 26, 2025 9 :57am Essential hypertension February 26, 2025 9 :57am Mixed hyperlipidemia February 26, 2025 9:5 7am Prostate cancer screening February 26 9:57am Renal calculi February 26, 2025 9:57 am Advance Directives No Advanced Directives Records Found Advance Directive Response Recorded Date/ Time Living Will No January 20, 2022 2:02am Power of Boiler Out No January 20 2:02am Summary Purpose Family History No Family History Records Found Additional Source Comments Goals (unrecognized section and content) Goals may be documented in a n alternate sectionGoals may be documented in an alternate sectionGoals may be documented in an alternate sectionGoals may be documented in an alternate sectionGoals may be documented in an alternate section No data available for this sectionGoals may be documented in an alternate sectionGoals may be documented in an alternate section Care Teams (unrecognized sec tion and content) Team Status: Active Member Role Status Dates No Primary Care Physician Family Provider Active Dr. Darius Asher MD Primary Care Provider Active Team Status: Inactive Member Role Status Dates Dr. 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 Specialty Start Date End Date Kwame Hicks MD [address] [place] [phone] Surgeon Urology 01/09/24 Gregory Chaney MD [address] [place], [place] [id number] Surgeon Urology 02/15/24 Team Status: Active Member Role/Relationship Status Dates No Primary Care Physician Family Provider Active LUIS Dickson Primary Care Provider Active Team Status: Inactive Member Role/Relationship Status Dates Owen Wayt PA, PA Primary Care Provider Active Start: February 26, 2025 End: February 26, 2025 Owen SMITH PA Attending Provider Active St art: February 26, 2025 End: February 26, 2025 LUIS Dickson Referring Provider Active St art: February 26, 2025 End: February 26, 2025 Team Status: Active Member Role/Relationship Status Dates LUIS Dickson Primary Care Provider Active Start: February 26, 2025 LUIS Dickson Attending Provider Active St art: February 26, 2025 LUIS Dickson Referring Provider Active St art: February 26, 2025 Team Status: Inactive Member Role/Relationship Status Dates LUIS Dickson Primary Care Provider Active Start: February 26, 2025 End: February 26, 2025 Owen SMITH PA Attending Provider Active St art: February 26, 2025 End: February 26, 2025 Owen SMITH PA Referring Provider Active St art: February 26, 2025 End: February 26, 2025 Reason for Visit (unrecogniz ed section and content) Reason Onset Date Comments Appointment Request 01/09/2024 New patient request; Referral from Dr. Jonatan Reza Reason Comments New Patient Nephrolithiasis States he has 11mm s tone in his right kidney Blood in Urine Gross-has had 2 epis odes of gross hematuria since seen in ER Specialty Diagnoses / Procedures Referred By Contebony t Referred To Contact Urology Diagnoses Gross hematuria Procedures Eval & Tx LaurelDarius matta MD [address] [place] [address] Gregory Chaney MD [address] [place] [address] Referral ID Status Reason Start Date Expiration Date V isits Requested Visits Authorized [id number] Pending Review 01/10/2024 01/09/2025 1 1 (unrecognized sect ion and content) No Status Records FoundNo Status Records FoundNo Status Records Found INFORMATION SOURCE (unrecogn ized section and content) DATE CREATED AUTHOR 01/17/2024 [facility] ([place]) DATE CREATED AUTHOR AUTHOR'S ORGANIZ ATION 02/21/2024 [facility] DATE CREATED AUTHOR AUTHOR'S TRAN ATION 06/14/2025 [facility] FOR RECORDS PERTAINING TO PATIENTS WHO ARE OR HAVE BEEN ENROLLED IN A CHEMICAL DEPENDENCY/SUBSTANCEABUSE PROGRAM, SOME INFORMATION MAY BE OMITTED. This clinical summary was aggregated from multiple sources. Caution should be exercised in using it in the provision of clinical care. This summary normalizes information from multiple sources, and as a consequence, information in this document may materially change the coding, format and clinical context of patient data. In addition, data may be omitted in some cases. CLINICAL DECISIONS SHOULD BE BASED ON THE PRIMARY CLINICAL RECORDS. [facility] Digital Message Display [facility]. provides no warranty or guarantee of the accuracy or completeness of information in this document.
== END | disposition home or self-care (01) ==
LOC: LAB 15:16
PROVIDERS: PCP Physician Assistant; Referring Provider Urology; Visit Provider Urology
DX: Z01.812 Encounter for preprocedural laboratory examination (principal)
CPT/HCPCS: 36415; 80048; 85027

== ENCOUNTER → 2025-06-19 | Outpatient (CLI) | payer OTHER, SELFPAY ==
--- NOTE | 2025-06-19 12:01 | EKG12_ITS ---
Test Reason : PRE OP Blood Pressure : */* mmHG Vent. Rate : 87 BPM Atrial Rate : 87 BPM P-R Int : 146 ms QRS Dur : 82 ms QT Int : 372 ms P-R-T Axes : 22 -35 37 degrees QTcB Int : 447 ms Normal sinus rhythm Left axis deviation Abnormal ECG Confirmed by PRESLEY DIAZ, VLADISLAV ([id number]), editor publications MARK MEJÍA ([id number]) on 06/20/2025 2:37:59 PM Referred By: Ke Kelley Confirmed By: VLADISLAV SHERWOOD MD
== END | disposition home or self-care (01) ==
PROVIDERS: PCP Physician Assistant; Referring Provider Urology; Visit Provider Urology
DX: Z01.812 Encounter for preprocedural laboratory examination (principal)
CPT/HCPCS: 93005

== ENCOUNTER 2025-07-04 06:48 | Day surgery (SDC) | payer OTHER, SELFPAY ==
--- NOTE | 2025-07-02 11:00 | PAT.ANE_ITS ---
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 When Was Last Pacemaker Check QUESTION #4 FULL TEXT: You/Your Family Experience fever (hyperthermia) with Anesthesia Last Oral Intake Last Oral intake: Last Oral Intake NPO since Meds taken in AM with sips of water? Meds patient instructed to take am of surgery PONV PONV - media services coordinator: PONV - media services coordinator Female No 07/02/25 10:44 HX of Motion Sickness No 07/02/25 10:44 HX of N/V After Surgery No 07/02/25 10:44 Non-Smoker Yes 07/02/25 10:44 Duration of Surgery greater Yes 07/02/25 10:44 than 60 minutes Number of Risk Factors 2 07/02/25 10:44 PONV Score Moderate Risk 07/02/25 10:44 Height & Weight Height & Weight: Anesthesia: Height & Weight Height 6 ft 02/26/25 10:13 Respiratory Assessment Respiratory Assessment - media services coordinator: Respiratory Tract Infection Hx - media services coordinator Hx Respiratory Tract Infection No 07/02/25 10:44 STOP Sleep Apnea STOP Sleep Apnea - media services coordinator: STOP Sleep Apnea - media services coordinator Hx Hypertension Yes: CONTROLLED WITH MED 07/02/25 10:44 Hx Sleep Apnea No 07/02/25 10:44 CPAP BIPAP Do you snore loudly (louder Yes 07/02/25 10:44 than talking or can be heard Do you often feel tired/ No 07/02/25 10:44 fatigued/ sleepy during daytime? Has anyone observed you stop No 07/02/25 10:44 breathing during sleep? STOP Results Positive 07/02/25 10:44 QUESTION #5 FULL TEXT : Do you snore loudly (louder than talking or can be heard through closed doors)? 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 Specify any problems Hx of Preganancy in last 3 N/A 07/02/25 10:44 Months Nurse Filling Out Transfusion DSCHRIBER 07/02/25 10:44 & Questions: Date: 07/02/25 07/02/25 10:44 Time: 10:45 07/02/25 10:44 Patient unable to answer at this time (ie. confused, unrespo /Reproduction History /Reproductive History - media services coordinator: /Reproductive Hx- media services coordinator Hx Now No 07/02/25 10:44 Gestational Age (in weeks): EDC: Hx Hx Para Hx Section SAB No 07/02/25 10:44 Does the father of the baby or his family experience fever w Father of the baby Malignant Hypertension history comment Active Medications Active Medications: Current Medications Generic Name Dose Route Start Last Admin Trade Name Freq PRN Reason Stop Dose Admin Cefazolin Sodium 2 gm/ Sodium 110 mls @ 200 mls/hr 07/04/25 09:00 Chloride IV 07/04/25 09:32 INTRAOP ONE [facility] Medical History (Updated 07/02/25 @ 10:50 by Isabelle Carvajal) Fatty liver Non-smoker History of stress test Hypertension Home Medications ?Medication ?Instructions ?Recorded ?Last Taken ?Type losartan 50 mg tablet 50 mg PO DAILY #90 TABLETS 1 Unknown Rx Allergy/AdvReac Type Severity Reaction Status Date / Time No Known Allergies Allergy Verified 07/02/25 10:42 Family History Father Hypertension Surgical History (Updated 07/02/25 @ 10:50 by Isabelle Carvajal) Hx of cystoscopy Social History household members: family housing: house current occupational status: employed 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, [employer] sexually active: Yes Smoking Status: Never smoker Electronic Cigarette Use: not used alcohol intake: former substance use type: does not use what type of physical activity do you participate in: walking frequency: 1-2 times per week seatbelt use: always do you feel safe at home: Yes Audit: Pertinent Findings Pertinent Findings EKG Perinent findings: Normal sinus rhythm Left axis deviation Abnormal ECG Confirmed by PRESLEY DIAZ, VLADISLAV ([id number]), online content editor MARK MEJÍA ([id number]) on 06/20/2025 2:37:59 PM Recommendation Anesthesia Recommendation Anesthesia recommendation: OPTIMIZED for anesthesia (Stress report in chart is m islabeled - it is an EKG. Regardless, patient should be safe to proceed)
[2025-07-04] VITALS (9 sets, daily range): BP systolic 121–153; BP diastolic 85–92; PULSE 85–105; RESP 16; TEMP 36.2–37; O2SAT 87–98; BMI 29.9
--- OUTSIDE RECORDS SUMMARY | 2025-07-04 06:52 | XMS RPT_ITS | CCD ---
Author Organization [facility] Care Team Providers Care Production Roustabout Name Role Phone Care Physician, No Primary Primary Care Provider Unavailable Care Physician, No Primary Referring Provider Un available Dr. Darius Asher Attending Provider [phone] [place], Dr. Machado Primary Care Provider Dr. Darius Asher Referring Provider [phone] Dr. Darius Asher Primary Care Provider Dr. Darius Asher Attending Provider [phone] Dr. Darius Asher Referring Provider [phone] Kwame Hicks MD Unavailable PHYSICIAN, NONE Primary Care Physician Unavailab GAGAN Pat DO Attending Unavailable PHYSICIAN, NONE Primary Care Unavailable Gregory Chaney MD Unavailable GREGORY CHANEY Attending Unavailable DARIUS ASHER Referring Unavailable Owen Michael Primary Care Provider [phone] Owen Michael Attending Provider [phone] WayOwen Bueno Referring Provider [phone] Owen Michael Attending Unavailable Wayt PA, Owen Referring Unavailable Wayt PA, Owen Primary Care Unavailable Wayt PA, Owen Attending Unavailable Wayt PA, Owen Referring Unavailable Wayt PA, Owen Primary Care Unavailable Wayt PA, Owen Primary Care Unavailable Francy Gill Attending Unavailable Ke Kelley Referring Unavailable Wayt PA, Owen Primary Care Unavailable Ke Kelley Attending Unavailable Wayt PA, Owen Attending Unavailable Darius Asher Referring Unavailable Wayt PA, Owen Primary Care Unavailable Medications Current Medications Medication Drug Class(es) [...] day(s), # 12 tab(s), 0 Refill(s), Pharmacy: [id number], Prostatitis Start Date: 01/12/24 Stop Date: 01/15/24 Status: Ordered ciprofloxacin 500 mg oral tablet (3 sources) Quinolone Antimicrobial Start: 01-12-2024 End: 01-26-2024 Cipro 500 mg oral tablet Dose : 500 mg = 1 tab(s), Oral, q12h, X 14 day(s), # 28 tab(s), 0 Refill(s), 01/26/24 12:15:00 PM EDT, Pharmacy: [id number] Start Date: 01/12/24 Stop Date: [...] 20 mg PO TWICE A DAY 180 1 December 01, 2022 1:58pm January 19, 2023 10:18am Start: 03-31-2022 End: 04-14-2022 take 1 tablet by mouth once daily Lisinopril 20 mg tablet Discontinued 20 mg PO DAILY 30 1 March 31, 2022 12:00am April 14, 2022 [...] Test Name Value Interpretation Reference Range Facility Basic Metabolic Profile (BMP )on 06-17-2025 BUN/CRE 15.1 RATIO Normal 10-20 [facility] Comment on above: Performed By: #### L 100.0500, L500.2500 #### [facility] [address] [place], [address] Calcium [Mass/Vol] 9.2 mg/dL Normal 7.6-11.0 [facility] Comment on above: Performed By: #### L 100.0500, L500.2500 #### [facility] [address] [place], [address] Chloride [Moles/Vol] 101 mmol/L Normal 98-108 [facility] Comment on above: Performed By: #### L 100.0500, L500.2500 #### [facility] [address] [place], [address] CO2 [Moles/Vol] 25.2 mmol/L Normal 21.0-32.0 [facility] Comment on above: Performed By: #### L 100.0500, L500.2500 #### [facility] [address] [place], [address] Creatinine [Mass/Vol] 1.16 mg/dL Normal 0.70-1.20 [facility] Comment on above: Performed By: #### L 100.0500, L500.2500 #### [facility] [address] [place], [address] GAP 11 Normal 5-15 [facility] Comment on above: Performed By: #### L 100.0500, L500.2500 #### [facility] [address] [place], [address] GFR/1.73 sq M.predicted among non-blacks MDRD (S/P/Bld) [Vol rate/Area] 76 mL/min/{1.73_m2} Normal >60 [facility] Comment on above: Result Comment: mL/m in/1.73m2 CKD-EPI Creatinine Equation (2020) Performed By: #### L 100.0500, L500.2500 #### [facility] [address] [place], [address] Glucose [Mass/Vol] 95 mg/dL Normal 70-99 [facility] Comment on above: Performed By: #### L 100.0500, L500.2500 #### [facility] [address] [place], [address] Potassium [Moles/Vol] 4.1 mmol/L Normal 3.3-5.1 [facility] Comment on above: Performed By: #### L 100.0500, L500.2500 #### [facility] [address] [place], [address] Sodium [Moles/Vol] 138 mmol/L Normal 133-145 [facility] Comment on above: Performed By: #### L 100.0500, L500.2500 #### [facility] [address] [place], [address] Urea nitrogen [Mass/Vol] 18 mg/dL Normal 4-19 [facility] Comment on above: Performed By: #### L 100.0500, L500.2500 #### [facility] [address] [place], [address] CBC-Complete Blood Cnt No Di ffon 06-17-2025 Erythrocyte distribution width (RBC) [Ratio] 12.1 % Normal 11.6-14.6 [facility] Comment on above: Performed By: #### L 100.0500, L500.2500 #### [facility] [address] [place], [address] Hematocrit (Bld) [Volume fraction] 43.6 % Normal 40-54 [facility] Comment on above: Performed By: #### L 100.0500, L500.2500 #### [facility] [address] [place], [address] Hemoglobin (Bld) [Mass/Vol] 15.4 g/dL Normal 13.0-16.5 [facility] Comment on above: Performed By: #### L 100.0500, L500.2500 #### [facility] [address] [place], [address] MCH (RBC) [Entitic mass] 30.7 pg Normal 27.0-32.0 [facility] Comment on above: Performed By: #### L 100.0500, L500.2500 #### [facility] [address] [place], [address] MCHC (RBC) [Mass/Vol] 35.3 g/dL Normal 32-36 [facility] Comment on above: Performed By: #### L 100.0500, L500.2500 #### [facility] [address] [place], [address] MCV (RBC) [Entitic vol] 87.0 fL Normal 80-94 [facility] Comment on above: Performed By: #### L 100.0500, L500.2500 #### [facility] [address] [place], [address] Platelet mean volume (Bld) [Entitic vol] 9.8 fL Normal 6.2-12.0 [facility] Comment on above: Performed By: #### L 100.0500, L500.2500 #### [facility] [address] [place], [address] Platelets (Bld) [#/Vol] 309 10*3/uL Normal 150-450 [facility] Comment on above: Performed By: #### L 100.0500, L500.2500 #### [facility] [address] [place], [address] RBC (Bld) [#/Vol] 5.01 10*6/uL Normal 4.6-6.2 [facility] Comment on above: Performed By: #### L 100.0500, L500.2500 #### [facility] [address] [place], [address] RDW SD 38.8 fl Normal 35.1-43.9 [facility] Comment on above: Performed By: #### L 100.0500, L500.2500 #### [facility] [address] [place], [address] WBC (Bld) [#/Vol] 9.3 10*3/uL Normal 4.4-11.0 [facility] Comment on above: Performed By: #### L 100.0500, L500.2500 #### [facility] [address] [place], [address] Anion gap in Serum or Plasma Ordered By: Owen Reza on 02-26-2025 Anion gap [Moles/Vol] 11 mmol/L 5-15 [facility] BUN/creatinine ratioOrdered By: Owen Reza on 02-26-2025 Urea nitrogen/Creatinine [Mass ratio] 12.2 mg/mg 10-20 [facility] Bilirubin, totalOrdered By: Owen Reza on 02-26-2025 Bilirubin [Mass/Vol] 0.43 mg/dL 0.00-1.30 [facility] CBC-Complete Blood Cnt No Di ffon 02-26-2025 Erythrocyte distribution width (RBC) [Ratio] 12.4 % Normal 11.6-14.6 [facility] Comment on above: Performed By: #### L 500.4050, L500.4100, L100.0500, L501.9910 #### [facility] [address] [place], [address] Hematocrit (Bld) [Volume fraction] 43.9 % Normal 40-54 [facility] Comment on above: Performed By: #### L 500.4050, L500.4100, L100.0500, L501.9910 #### [facility] [address] [place], [address] Hemoglobin (Bld) [Mass/Vol] 15.2 g/dL Normal 13.0-16.5 [facility] Comment on above: Performed By: #### L 500.4050, L500.4100, L100.0500, L501.9910 #### [facility] [address] [place], [address] MCH (RBC) [Entitic mass] 30.8 pg Normal 27.0-32.0 [facility] Comment on above: Performed By: #### L 500.4050, L500.4100, L100.0500, L501.9910 #### [facility] [address] [place], [address] MCHC (RBC) [Mass/Vol] 34.6 g/dL Normal 32-36 [facility] Comment on above: Performed By: #### L 500.4050, L500.4100, L100.0500, L501.9910 #### [facility] [address] [place], [address] MCV (RBC) [Entitic vol] 89.0 fL Normal 80-94 [facility] Comment on above: Performed By: #### L 500.4050, L500.4100, L100.0500, L501.9910 #### [facility] [address] [place], [address] Platelet mean volume (Bld) [Entitic vol] 10.3 fL Normal 6.2-12.0 [facility] Comment on above: Performed By: #### L 500.4050, L500.4100, L100.0500, L501.9910 #### [facility] [address] [place], [address] Platelets (Bld) [#/Vol] 285 10*3/uL Normal 150-450 [facility] Comment on above: Performed By: #### L 500.4050, L500.4100, L100.0500, L501.9910 #### [facility] [address] [place], [address] RBC (Bld) [#/Vol] 4.93 10*6/uL Normal 4.6-6.2 [facility] Comment on above: Performed By: #### L 500.4050, L500.4100, L100.0500, L501.9910 #### [facility] [address] [place], [address] RDW SD 40.3 fl Normal 35.1-43.9 [facility] Comment on above: Performed By: #### L 500.4050, L500.4100, L100.0500, L501.9910 #### [facility] [address] [place], [address] WBC (Bld) [#/Vol] 6.4 10*3/uL Normal 4.4-11.0 [facility] Comment on above: Performed By: #### L 500.4050, L500.4100, L100.0500, L501.9910 #### [facility] [address] [place], [address] Calculated very low density lipoprotein (VLDL) cholesterol measurementOrdered By: Owen Reza on 02-26-2025 Calculated very low density lipoprotein (VLDL) cholesterol measurement 39 mg/dL 5-40 [facility] Carbon dioxide, total [Moles /volume] in Central venous bloodOrdered By: Owen Reza on 02-26-2025 CO2 [Moles/Vol] 26.4 mmol/L 21.0-32.0 [facility] Chloride assayOrdered By: Eyad Reza on 02-26-2025 Chloride [Moles/Vol] 101 mmol/L 98-108 [facility] Comprehensive Metabolic Prof ilon 02-26-2025 Albumin [Mass/Vol] 4.3 g/dL Normal 3.5-5.0 [facility] Comment on above: Performed By: #### L 500.4050, L500.4100, L100.0500, L501.9910 #### [facility] [address] [place], [address] Albumin/Globulin [Mass ratio] 1.4 {ratio} Normal 0.9-2.4 [facility] Comment on above: Performed By: #### L 500.4050, L500.4100, L100.0500, L501.9910 #### [facility] [address] [place], [address] ALK PHOS 84 U/L Normal 40-129 [facility] Comment on above: Performed By: #### L 500.4050, L500.4100, L100.0500, L501.9910 #### [facility] [address] [place], [address] ALT [Catalytic activity/Vol] 27 U/L Normal <=46 [facility] Comment on above: Performed By: #### L 500.4050, L500.4100, L100.0500, L501.9910 #### [facility] [address] [place], [address] AST [Catalytic activity/Vol] 21 U/L Normal <=37 [facility] Comment on above: Performed By: #### L 500.4050, L500.4100, L100.0500, L501.9910 #### [facility] [address] [place], [address] Bilirubin [Mass/Vol] 0.43 mg/dL Normal 0.00-1.30 [facility] Comment on above: Performed By: #### L 500.4050, L500.4100, L100.0500, L501.9910 #### [facility] [address] [place], [address] BUN/CRE 12.2 RATIO Normal 10-20 [facility] Comment on above: Performed By: #### L 500.4050, L500.4100, L100.0500, L501.9910 #### [facility] [address] [place], [address] Calcium [Mass/Vol] 9.5 mg/dL Normal 7.6-11.0 [facility] Comment on above: Performed By: #### L 500.4050, L500.4100, L100.0500, L501.9910 #### [facility] [address] [place], [address] Chloride [Moles/Vol] 101 mmol/L Normal 98-108 [facility] Comment on above: Performed By: #### L 500.4050, L500.4100, L100.0500, L501.9910 #### [facility] [address] [place], [address] CO2 [Moles/Vol] 26.4 mmol/L Normal 21.0-32.0 [facility] Comment on above: Performed By: #### L 500.4050, L500.4100, L100.0500, L501.9910 #### [facility] [address] [place], [address] Creatinine [Mass/Vol] 1.18 mg/dL Normal 0.70-1.20 [facility] Comment on above: Performed By: #### L 500.4050, L500.4100, L100.0500, L501.9910 #### [facility] [address] [place], [address] GAP 11 Normal 5-15 [facility] Comment on above: Performed By: #### L 500.4050, L500.4100, L100.0500, L501.9910 #### [facility] [address] [place], [address] GFR/1.73 sq M.predicted among non-blacks MDRD (S/P/Bld) [Vol rate/Area] 75 mL/min/{1.73_m2} Normal >60 [facility] Comment on above: Result Comment: mL/m in/1.73m2 CKD-EPI Creatinine Equation (2020) Performed By: #### L 500.4050, L500.4100, L100.0500, L501.9910 #### [facility] [address] [place], [address] Globulin (S) [Mass/Vol] 3.1 g/dL Normal 2.2-4.2 [facility] Comment on above: Performed By: #### L 500.4050, L500.4100, L100.0500, L501.9910 #### [facility] [address] [place], [address] Glucose [Mass/Vol] 98 mg/dL Normal 70-99 [facility] Comment on above: Performed By: #### L 500.4050, L500.4100, L100.0500, L501.9910 #### [facility] [address] [place], [address] Potassium [Moles/Vol] 4.7 mmol/L Normal 3.3-5.1 [facility] Comment on above: Performed By: #### L 500.4050, L500.4100, L100.0500, L501.9910 #### [facility] [address] [place], [address] Sodium [Moles/Vol] 138 mmol/L Normal 133-145 [facility] Comment on above: Performed By: #### L 500.4050, L500.4100, L100.0500, L501.9910 #### [facility] [address] [place], [address] T PROT 7.4 g/dL Normal 5.9-8.4 [facility] Comment on above: Performed By: #### L 500.4050, L500.4100, L100.0500, L501.9910 #### [facility] [address] [place], [address] Urea nitrogen [Mass/Vol] 14 mg/dL Normal 4-19 [facility] Comment on above: Performed By: #### L 500.4050, L500.4100, L100.0500, L501.9910 #### [facility] [address] [place], [address] Erythrocyte distribution wid th ratioOrdered By: Owen Reza on 02-26-2025 Erythrocyte distribution width (RBC) [Ratio] 12.4 % 11.6-14.6 [facility] Erythrocyte distribution wid th standard deviationOrdered By: Owen Reza on 02-26-2025 Erythrocyte distribution width (RBC) [Ratio] 40.3 fl 35.1-43.9 [facility] Glomerular filtration rate ( GFR) estimation/1.73 sq m using serum, plasma, or whole bOrdered By: Owen Reza on 02-26-2025 GFR/1.73 sq M.predicted among non-blacks MDRD (S/P/Bld) [Vol rate/Area] 75 mL/min/{1.73_m2} >60 [facility] Comment on above: mL/min/1.73m2 CKD-EP I Creatinine Equation (2020) Hematocrit Auto (Bld) [Volum e fraction]Ordered By: Owen Reza on 02-26-2025 Hematocrit (Bld) [Volume fraction] 43.9 % 40-54 [facility] Hemoglobin measurementOrdere d By: Owen Reza on 02-26-2025 Hemoglobin (Bld) [Mass/Vol] 15.2 g/dL 13.0-16.5 [facility] Internal Medicine Office Vis iton 02-26-2025 Internal Medicine Office Visit [facility] [address] [place] [address] OFFICE VISIT Date of Service: 02/26/25 MR#: [id number] Acct: [id number] Name: HUSSEIN HUNTER Rep #: [id number] : 1975 Provider: LUIS Malik Age/Sex: 49/M Location[facility] Status: Signed Intake Vital Signs 07/24/24 10:04 [...] room air Intake Visit Reasons: FOLLOW UP Audit 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 Pt states he thinks he would like to a urology referral as he saw Dr. Mercado 1 time but insurance was causing issues. Cystoscopy, and ct reccomended to determine lithotripsy. Pt states he thinks stone broke up and he has passed it but has a chronic h/o kidney stones. [facility] Medical History (Updated 02/26/25 @ 12:52 by Owen SMITH, PA) Colon cancer screening Hematuria Surgical History (Updated [...] wheezing Jhoan/Lymp (more content not included)... Normal [facility] LDL calc ser/plasOrdered By: Owen Reza on 02-26-2025 Cholesterol in LDL [Mass/Vol] 88 mg/dL [facility] Comment on above: Iinvplahqb=548-521 m g/dL & Higher Arax=511 mg/dL or greater Laboratory - Chemistry and C hemistry - challengeOrdered By: Owen Reza on 02-26-2025 AST [Catalytic activity/Vol] 21 U/L <38 [facility] Lipid Profileon 02-26-2025 CHOL:HDL 3.83 Normal [facility] Comment on above: Performed By: #### L 500.4050, L500.4100, L100.0500, L501.9910 #### [facility] [address] [place], [address] Cholesterol [Mass/Vol] 172 mg/dL Normal <=200 [facility] Comment on above: Result Comment: Chol esterol level, Desirable <200 mg/dL Borderline high cholesterol 200-239 mg/dL High cholesterol >=240 mg/dL Recommendations of the NCEP Adult Treatment Panel for the following risk-cutoff thresholds for the [place] population. Performed By: #### L 500.4050, L500.4100, L100.0500, L501.9910 #### [facility] [address] [place], [address] Cholesterol in HDL [Mass/Vol] 45 mg/dL Normal [facility] Comment on above: Result Comment: Molly onal Cholesterol Education Program (NCEP) guidelines: <40 mg/dL: Low HDL-cholesterol (major risk factor for CHD) >= 60 mg/dL: High HDL-cholesterol (negative risk factor for CHD) HDL-cholesterol is affected by a number of factors, e.g. smoking, exercise, hormones, sex and age. Performed By: #### L 500.4050, L500.4100, L100.0500, L501.9910 #### [facility] [address] [place], [address] Cholesterol in LDL [Mass/Vol] 88 mg/dL Normal [facility] Comment on above: Result Comment: Bord adjwmv=748-343 mg/dL Higher Futx=863 mg/dL or greater Performed By: #### L 500.4050, L500.4100, L100.0500, L501.9910 #### [facility] [address] [place], [address] Cholesterol in VLDL [Mass/Vol] 39 mg/dL Normal 5-40 [facility] Comment on above: Performed By: #### L 500.4050, L500.4100, L100.0500, L501.9910 #### [facility] [address] [place], [address] Triglyceride [Mass/Vol] 194 mg/dL Normal [facility] Comment on above: Result Comment: The drugs N-Acetylcysteine and Metamizole may falsely depress this assay. Normal range: <150 mg/dL Borderline High: 150-199 mg/dL High: 200-499 mg/dL Very High: >500 mg/dL Performed By: #### L 500.4050, L500.4100, L100.0500, L501.9910 #### [facility] [address] [place], [place], [id number] MCV (mean corpuscular volume ) determinationOrdered By: Owen Reza on 02-26-2025 MCV (RBC) [Entitic vol] 89.0 fL 80-94 [facility] Mean corpuscular hemoglobin (MCH) determinationOrdered By: Owen Reza on 02-26-2025 MCH (RBC) [Entitic mass] 30.8 pg 27.0-32.0 [facility] Mean corpuscular hemoglobin concentration (MCHC) determinationOrdered By: Owen Reza on 02-26-2025 MCHC (RBC) [Mass/Vol] 34.6 g/dL 32-36 [facility] Mean platelet volume determi nationOrdered By: Owen Reza on 02-26-2025 Platelet mean volume (Bld) [Entitic vol] 10.3 fL 6.2-12.0 [facility] PSA,Total - Annual Screenon 02-26-2025 PSA,TOT SCREEN 0.36 ng/mL Normal 0.02-4.00 [facility] Comment on above: Result Comment: This test [...] #### L 500.4050, L500.4100, L100.0500, L501.9910 #### [facility] [address] [place], [address] Platelet countOrdered By: Eyad Reza on 02-26-2025 Platelets (Bld) [#/Vol] 285 10*3/uL 150-450 [facility] Potassium measurement (mass/ volume)Ordered By: Owen Reza on 02-26-2025 Potassium (Unsp spec) [Mass/Vol] 4.7 mmol/L 3.3-5.1 [facility] RBC Auto (Bld) [#/Vol]Ordere d By: Owen Reza on 02-26-2025 RBC (Bld) [#/Vol] 4.93 10*6/uL 4.6-6.2 [facility] Screening total cholesterol/ high density lipoprotein (HDL) cholesterol ratioOrdered By: Owen Reza on 02-26-2025 Cholesterol.total/Choles terol in HDL [Mass ratio] 3.83 {ratio} [facility] Serum creatinine measurement (mass/volume)Ordered By: Owen Reza on 02-26-2025 Creatinine [Mass/Vol] 1.18 mg/dL 0.70-1.20 [facility] Serum globulin measurementOr dered By: Owen Reza on 02-26-2025 Globulin (S) [Mass/Vol] 3.1 g/dL 2.2-4.2 [facility] Serum glucose measurement (m ass/volume)Ordered By: Owen Reza on 02-26-2025 Glucose [Mass/Vol] 98 mg/dL 70-99 [facility] Serum or plasma alanine culver otransferase (ALT) measurementOrdered By: Owen Reza on 02-26-2025 ALT [Catalytic activity/Vol] 27 U/L <47 [facility] Serum or plasma albumin lui sm urement (mass/volume)Ordered By: Owen Reza on 02-26-2025 Albumin [Mass/Vol] 4.3 g/dL 3.5-5.0 [facility] Serum or plasma albumin/glob ulin mass ratioOrdered By: Owen Reza on 02-26-2025 Albumin/Globulin [Mass ratio] 1.4 {ratio} 0.9-2.4 [facility] Serum or plasma alkaline gerardo sphatase measurementOrdered By: Owen Reza on 02-26-2025 ALP [Catalytic activity/Vol] 84 U/L 40-129 [facility] Serum or plasma calcium luis m urement (mass/volume)Ordered By: Owen Reza on 02-26-2025 Calcium [Mass/Vol] 9.5 mg/dL 7.6-11.0 [facility] Serum or plasma cholesterol in HDL measurement (mass/volume)Ordered By: Owen Reza on 02-26-2025 Cholesterol in HDL [Mass/Vol] 45 mg/dL >40 [facility] Comment on above: National Cholesterol Education Program (NCEP) guidelines:<40 mg/dL: Low HDL-cholesterol (major risk factor for CHD)>= 60 mg/dL: High HDL-cholesterol (negative risk factor for CHD)HDL-cholesterol is affected by a number of factors, e.g. smoking, exercise, hormones, sex and age. Serum or plasma cholesterol measurement (mass/volume)Ordered By: Owen Reza on 02-26-2025 Cholesterol [Mass/Vol] 172 mg/dL <201 [facility] Comment on above: Cholesterol level, D esirable <200 mg/dLBorderline high cholesterol 200-239 mg/dLHigh cholesterol >=240 mg/dLRecommendations of the NCEP Adult Treatment Panel for the following risk-cutoff thresholds for the [place] population. Serum or plasma urea nitroge n measurement (mass/volume)Ordered By: Owen Reza on 02-26-2025 Urea nitrogen [Mass/Vol] 14 mg/dL 4-19 [facility] Sodium levelOrdered By: Jonatan Reza on 02-26-2025 Sodium [Moles/Vol] 138 mmol/L 133-145 [facility] Total proteinOrdered By: Jeffery Reza on 02-26-2025 Protein [Mass/Vol] 7.4 g/dL 5.9-8.4 [facility] Triglycerides measurementOrd ered By: Owen Reza on 02-26-2025 Triglyceride [Mass/Vol] 194 mg/dL <199 [facility] Comment on above: The drugs N-Acetylcy steine and Metamizole may falsely depress this assay. Normal range: <150 mg/dLBorderline High: 150-199 mg/dLHigh: 200-499 mg/dLVery High: >500 mg/dL White blood cell (WBC) count Ordered By: Owen Reza on 02-26-2025 WBC (Bld) [#/Vol] 6.4 10*3/uL 4.4-11.0 [facility] Internal Medicine Office Vis deidre 07-24-2024 Internal Medicine Office Visit [facility] [address] [place] [address] [address] [place] [address] OFFICE VISIT Date of Service: 07/24/24 MR#: [id number] Acct: [id number] Name: HUSSEIN HUNTER Rep #: [id number] : 1975 Provider: LUIS Malik Age/Sex: 49/M Location[facility] Status: Signed Intake Vital Signs 07/20/23 12:57 [...] Reasons: 1 YR FU Chief Complaint: yearly Audit Machine Operator Required: No Accompanied by: Self Is patient [...] oriented x3 Limitations: mental status not altered HENMT Head: normocephalic and atraumatic Ears: hearing grossly normal bilaterally Neck Neck: no lymphadenopathy, trachea midline, supple and nontender Neck mass: No Resp Effort Inspection: normal respiratory effort, able to speak in complete sentences, symmetric chest movement, normal respiratory pattern, no audible wheezes, no cough and respiratory effort not decreased Auscultation: Bilateral: Clear to Auscul (more content not included)... Normal [facility] POC URINALYSIS DIP STICK AUTO W/O MICROon 02-15-2024 Bilirubin, [facility] Large [facility] Glucose, UA Negative [facility] Ketones, UA (mg/dL) Negative Negative mg/dL [facility] Leukocytes, UA Negative [facility] Nitrite, UA Negative [facility] pH, UA 5.5 [facility] Protein, UA Negative [facility] Spec Grav, UA 1.020 [facility], [facility]2 [facility] Office Visiton 02-15-2024 Follow-up visit [id number] Hussein Hutner 1975 M Date Provider Department Center 02/15/2024 [id number] CHANEY SH ACH URO None No family history on file Level of Service:07221 AL OFFICE/OUTPATIENT NEW MDM 15 MINUTES Reason for Visit and Comments: New Patient [542] Nephrolithiasis [604021] - States he has 11mm stone in his right kidney Blood in Urine [728098] - Gross-has had 2 episodes of gross hematuria since seen in ER Normal [facility] Progress Noteon 02-15-2024 Progress Note Gregory Chaney [...] right renal calculus He was seen in [facility], diagnosed with bacterial prostatitis, gross hematuria [...] BILIRUBINUR Negative 02/15/2024 Review: Records reviewed from [facility] Ureteroscopy I discussed the procedure of ureteroscopy. [...] AUTO W/O MICRO Obtain CT results from [facility] Given gross hematuria, he will need cytoscopy Given the large right renal calculus, he potentially will need laser lithotripsy vs eswl So in order to evaluate stone and work up gross hematuria, will plan on cytoscopy, retrograde pyelograms, right ureteroscopy and laser lithotripsy, stent No follow-ups on file. Gregory Chaney MD 02/15/24 10:20 AM Normal [facility] .Auto Diffon 01-12-2024 Basophil, Absolute 0.0 10 3/mcL Normal 0.0-0.2 [facility] ([place]) Comment on above: Performed By: #### G PAULINA RAMOS ADIFF, MDW, BMP, CBC #### [address] [address] Basophils/100 WBC (Bld) 0.4 % Normal 0.0-2.5 A [facility] ([place]) Comment on above: Performed By: #### G PAULINA RAMOS ADIFF, MDW, BMP, CBC #### [address] [address] Eosinophil, Absolute 0.0 10 3/mcL Normal 0.0-0.4 [facility] ([place]) Comment on above: Performed By: #### G , DONALDO GALLARDO MDW, BMP, CBC #### [address] [address] Eosinophils/100 WBC (Bld) 0.4 % Normal 0.0-7.0 [facility] ([place]) Comment on above: Performed By: #### G PAULINA RAMOS ADIFF, MDW, BMP, CBC #### [address] [address] Lymphocyte, Absolute 1.1 10 3/mcL Normal 0.8-3.9 [facility] ([place]) Comment on above: Performed By: #### G , DONALDO GALLARDO MDW, BMP, CBC #### [address] [address] Lymphocytes/100 WBC (Bld) 13.5 % Normal 10.0-50.0 [facility] ([place]) Comment on above: Performed By: #### G , DONALDO GLALARDO MDW, BMP, CBC #### [address] [address] Monocyte, Absolute 0.6 10 3/mcL Normal 0.2-1.0 [facility] ([place]) Comment on above: Performed By: #### G , DONALDO GALLARDO MDW, BMP, CBC #### [address] [address] Monocytes/100 WBC (Bld) 7.5 % Normal 1.7-13.0 A [facility] ([place]) Comment on above: Performed By: #### G , DONALDO GALLARDO MDW, BMP, CBC #### [address] [address] Neutrophils/100 WBC (Bld) 78.2 % Normal 37.0-80.0 [facility] ([place]) Comment on above: Performed By: #### G , DONALDO GALLARDO MDW, BMP, CBC #### [address] [address] .GFRon 01-12-2024 GFR 97 ml/min/1.73sqm Normal [facility] ([place] Comment on above: Result Comment: GFR Population [...] PAULINA RAMOS ADIFF, MDW, BMP, CBC #### [address] [address] GFR Non- 80 ml/min/1.73sqm Normal [facility] ([place] Comment on above: Result Comment: GFR Population [...] PAULINA RAMOS ADIFF, MDW, BMP, CBC #### [address] [address] .MDWon 01-12-2024 Monocyte Distribution Width 17.74 Normal 0.00-20.00 [facility] ([place]) Comment on above: Result Comment: For ED adult patients suspected of sepsis, MDW<=20.0 does not rule out sepsis or risk of sepsis Performed By: #### G PAULINA RAMOS ADIFF, MDW, TARA, CBC #### [address] [address] .NEUABSon 01-12-2024 Neutrophil, Absolute 6.5 10 3/mcL High 2.9-6.2 [facility] ([place]) Comment on above: Performed By: #### G PAULINA RAMOS ADIFF, MDW, TARA, CBC #### [place] [address] [address] .Urinalysis Microscopic (AO) on 01-12-2024 UA RBC LOADED Abnormal None Seen [facility] ([place] Comment on above: Performed By: #### U AMICAO, UA #### [address] [address] UA Squam Epithelial None Seen Normal None Seen Replaced by [facility] ([place]) Comment on above: Performed By: #### U AMICAO, UA #### [address] [place], [place] [address] UA Uric Ac Crystals 1+ /hpf Normal Replaced by [facility] ([place] Comment on above: Performed By: #### U AMICAO, UA #### [address] [address] UA WBC None Seen Normal None Seen [facility] ([place] Comment on above: Performed By: #### U AMICAO, UA #### [address] [address] BMPon 01-12-2024 BUN/Creatinine Ratio 13 ratio Normal 7-27 [facility] ([place]) Comment on above: Performed By: #### G PAULINA RAMOS ADIFF, MDW, TARA, CBC #### [address] [address] Calcium [Mass/Vol] 8.7 mg/dL Normal 8.4-10.2 [facility] ([place]) Comment on above: Performed By: #### G PAULINA RAMOS ADIFF, MDW, TARA, CBC #### [address] [address] Chloride [Moles/Vol] 103 mmol/L Normal 98-107 [facility] ([place]) Comment on above: Performed By: #### PAULINA ANDERSON ADIFF, MDW, BMP, CBC #### [address] [address] CO2 [Moles/Vol] 30 mmol/L High 22-29 [facility] ([place]) Comment on above: Performed By: #### PAULINA ANDERSON ADIFF, MDW, BMP, CBC #### [address] [address] Creatinine [Mass/Vol] 0.99 mg/dL Normal 0.70-1.30 [facility] ([place]) Comment on above: Performed By: #### G , DONALDO GALLARDO, STACEY, BMP, CBC #### [address] [address] Electrolyte Balance 9.0 mEq/L Normal 4.0-15.0 Replaced by [facility] ([place]) Comment on above: Performed By: #### G , DONALDO GALLARDO, STACEY, BMP, CBC #### [address] [address] Glucose [Mass/Vol] 103 mg/dL Normal 70-105 [facility] ([place]) Comment on above: Performed By: #### G , DONALDO GALLARDO, STACEY, BMP, CBC #### [address] [address] Potassium [Moles/Vol] 4.1 mmol/L Normal 3.5-5.1 [facility] ([place]) Comment on above: Performed By: #### G , DONALDO GALLARDO MDW, BMP, CBC #### [address] [address] Sodium [Moles/Vol] 142 mmol/L Normal 136-145 [facility] ([place]) Comment on above: Performed By: #### G , DONALDO GALLARDO, STACEY, BMP, CBC #### [address] [address] Urea nitrogen [Mass/Vol] 13 mg/dL Normal 7-18 [facility] ([place]) Comment on above: Performed By: #### G , DONALDO GALLARDO, STAECY, BMP, CBC #### [address] [address] CBCon 01-12-2024 Erythrocyte distribution width (RBC) [Ratio] 13.2 % Normal 11.5-14.5 [facility]) Comment on above: Performed By: #### G , DONALDO GALLARDO, W, BMP, CBC #### [address] [address] Hematocrit (Bld) [Volume fraction] 43.3 % Normal 42.0-52.0 [facility] ([place]) Comment on above: Performed By: #### G , DONALDO GALLARDO, STACEY, BMP, CBC #### [address] [address] Hgb 15.0 G/dL Normal 14.0-18.0 [facility] ([place]) Comment on above: Performed By: #### G , DONALDO GALLARDO, W, BMP, CBC #### [address] [address] MCH (RBC) [Entitic mass] 31.5 pg High 27.0-31.2 [facility] ([place]) Comment on above: Performed By: #### G , DONALDO GALLARDO, STACEY, BMP, CBC #### [address] [address] MCHC 34.7 G/dL Normal 31.8-35.4 [facility] ([place]) Comment on above: Performed By: #### G , PAULINA, DONALDO, W, BMP, CBC #### [address] [address] MCV (RBC) [Entitic vol] 90.7 fL Normal 80.0-94.0 A [facility] ([place]) Comment on above: Performed By: #### G , PAULINA, DONALDO, W, BMP, CBC #### [address] [address] Platelet 278 10 3/mcL Normal 130-400 [facility] ([place]) Comment on above: Performed By: #### G FR, PAULINA, DONALDO, W, BMP, CBC #### [address] [address] Platelet mean volume (Bld) [Entitic vol] 7.9 fL Normal 7.4-10.4 [facility] ([place]) Comment on above: Performed By: #### G FR, ANEU, DONALDO, MDW, BMP, CBC #### [address] [address] RBC 4.78 10 6/mcL Normal 4.04-6.13 [facility] ([place]) Comment on above: Performed By: #### G , DONALDO GALLARDO MDW, TARA, CBC #### [facility] [address] [place], [place] [address] WBC 8.2 10 3/mcL Normal 4.6-10.8 [facility] ([place]) Comment on above: Performed By: #### G , DONALDO GALLARDO MDW, BMP, CBC #### [place] [address] [place], [place] [address] CT ABD/PELVIS W/ IV CONTRAST ONLYon 01-12-2024 [...] 01/12/2024 11:24:43 AM Ordering Provider: GAGAN Shepherd [facility] ([place]) LABORATORYOrdered By: SYSTEM SYSTEM on 01-12-2024 Basophil, [...] SS UAon 01-12-2024 Color (U) Brown Abnormal [facility] ([place] Comment on above: Performed By: #### U AMICAO, UA #### [address] [address] Glucose (U) [Mass/Vol] Negative Normal Negative [facility] ([place]) Comment on above: Performed By: #### U AMICAO, UA #### [address] [address] Ketones Ql (U) Negative Normal Negative [facility] ([place] Comment on above: Performed By: #### U AMICAO, UA #### [address] [address] UA Appear Cloudy Abnormal Clear [facility] ([place] Comment on above: Performed By: #### U AMICAO, UA #### [address] [address] UA Blood Large Abnormal Negative [facility] ([place] Comment on above: Performed By: #### U AMICAO, UA #### [address] [address] UA Leuk Est Negative Normal Negative [facility] ([place] Comment on above: Performed By: #### U AMICAO, UA #### [place] [address] [address] UA Nitrite Negative Normal Negative [facility] ([place] Comment on above: Performed By: #### U AMICAO, UA #### [place] [address] [address] UA pH 5.5 Normal 5.0 - 8.0 [facility] ([place]) Comment on above: Performed By: #### U AMICAO, UA #### [place] [address] [address] UA Protein 30 mg/dL Normal Negative [facility] ([place] Comment on above: Performed By: #### U AMICAO, UA #### [place] [address] [address] UA Spec Grav 1.025 Normal 1.015-1.025 [facility] ([place]) Comment on above: Performed By: #### U AMICAO, UA #### [place] [address] [address] UA Specimen Type Clean Catch Normal [facility] ([place] Comment on above: Performed By: #### U AMICAO, UA #### [place] [address] [address] UA Urobilinogen 0.2 E.U./dL Normal 0.2-1.0 [facility] ([place]) Comment on above: Performed By: #### U AMICAO, UA #### [address] [address] Urobilinogen (U) [Mass/Vol] Negative Normal Negative [facility] ([place]) Comment on above: Performed By: #### U AMICAO, UA #### [address] [address] 01-10-2024 36 Pt called back, pt schedule first available with Dr. Chaney on 02/15/24 in [place] and placed on wait list for Edwin in case of a cancellation. [facility] 01-09-2024 36 Name of Caller: Felicity (Spouse) Contact Reason for Appointment: Felicity is requesting a call back to schedule a new patient appointment for Hussein and states that a referral was sent from Dr. Jonatan Reza. Please contact Felicity and advise. Office Name: [facility] Urology [facility] Absolute lymphocyte countOrd ered By: Dr. Asher on 01-19-2023 Lymphocytes Auto (Unsp spec) [#/Vol] 1.38 10*3/uL 0.83-4.51 [facility] Basophil percentageOrdered B y: Dr. Asher on 01-19-2023 Basophils/100 WBC (Bld) 0.6 % 0-1 [facility] Bilirubin [Mass/Vol] 0.40 mg/dL 0.20-1.00 [facility] Comment on above: For patients on eltr ombopag therapy, use of Dimension Tama TBIL is not recommended. Chloride [Moles/Vol] 104 mmol/L 98-107 [facility] Cholesterol [Mass/Vol] 190 mg/dL <200 [facility] Comment on above: <200 mg/dL Desirable 200-240 mg/dL Borderline >240 mg/dL High Risk Eosinophils/100 WBC (Bld) 0.9 % 0-5 [facility] Glucose [Mass/Vol] 94 mg/dL 74-106 [facility] Neutrophils (Bld) [#/Vol] 4.8 10*3/uL 2.0-7.7 [facility] Neutrophils/100 WBC (Bld) 68.6 % 47-70 [facility] Potassium [Moles/Vol] 4.3 mmol/L 3.5-5.1 [facility] Protein [Mass/Vol] 7.8 g/dL 6.4-8.2 [facility] Sodium [Moles/Vol] 136 mmol/L 136-145 [facility] Triglyceride [Mass/Vol] 267 mg/dL <199 [facility] Comment on above: The drugs N-Acetylcy steine and Metamizole may falsely depress this assay.Serum Triglycerides Reference Interval Normal <150 mg/dL Borderline high 150 - 199 mg/dL High 200 - 499 mg/dL Very High > or = 500 mg/dL WBC (Bld) [#/Vol] 7.0 10*3/uL 4.4-11.0 [facility] Blood erythrocytes count (nu mber/volume)Ordered By: Dr. Asher on 01-19-2023 RBC (Bld) [#/Vol] 5.03 10*6/uL 4.6-6.2 [facility] Blood hemoglobin measurement (mass/volume)Ordered By: Dr. Asher on 01-19-2023 Hemoglobin (Bld) [Mass/Vol] 15.6 g/dL 13.0-16.5 [facility] Blood lymphocytes/100 leukoc ytesOrdered By: Dr. Asher on 01-19-2023 Lymphocytes/100 WBC (Bld) 19.9 % 19-41 [facility] Blood monocytes/100 leukocyt esOrdered By: Dr. Asher on 01-19-2023 Monocytes/100 WBC (Bld) 9.1 % 0-10 [facility] Blood platelet mean volumeOr dered By: Dr. Asher on 01-19-2023 Platelet mean volume (Bld) [Entitic vol] 10.4 fL 6.2-12.0 [facility] Determination of erythrocyte mean corpuscular volume (MCV)Ordered By: Dr. Asher on 01-19-2023 MCV (RBC) [Entitic vol] 91.7 fL 80-94 [facility] Hematocrit Auto (Bld) [Volum e fraction]Ordered By: Dr. Asher on 01-19-2023 Hematocrit (Bld) [Volume fraction] 46.1 % 40-54 [facility] Laboratory - Chemistry and C hemistry - challengeOrdered By: Dr. Asher on 01-19-2023 ALP [Catalytic activity/Vol] 89 U/L 45-117 [facility] ALT [Catalytic activity/Vol] 36 U/L 16-61 [facility] CO2 [Moles/Vol] 28.0 mmol/L 21.0-32.0 [facility] Globulin (S) [Mass/Vol] 4.2 g/dL 2.2-4.2 [facility] Urea nitrogen/Creatinine [Mass ratio] 14.9 mg/mg 10-20 [facility] Laboratory - Hematology and Cell countsOrdered By: Dr. Asher on 01-19-2023 Erythrocyte distribution width (RBC) [Entitic vol] 41.6 fL 35.1-43.9 [facility] Erythrocyte distribution width (RBC) [Ratio] 12.5 % 11.6-14.6 [facility] Immature granulocytes/100 WBC (Bld) 0.900 % 0.0-0.9 [facility] Comment on above: IG% - Immature Granu locytes (promyelocytes, myelocytes and metamyelocytes) > 1% indicates that a LEFT SHIFT is Present. MCH (RBC) [Entitic mass] 31.0 pg 27.0-32.0 [facility] Nucleated RBC/100 WBC (Bld) [Ratio] 0 % 0-5 [facility] MCHC Auto (RBC) [Mass/Vol]Or dered By: Dr. Asher on 01-19-2023 MCHC (RBC) [Mass/Vol] 33.8 g/dL 32-36 [facility] No Panel InformationOrdered By: Dr. Asher on 01-19-2023 Estimated GFR (MDRD) Amer 101 mL/min >60 [facility] Comment on above: GFR Calc Estimated GFR (MDRD) Non-Af Amer 84 mL/min >60 [facility] Comment on above: Non- GFR Calc Platelets bldOrdered By: Dr. Asher on 01-19-2023 Platelets (Bld) [#/Vol] 307 10*3/uL 150-450 [facility] Serum or plasma albumin luis m urement (mass/volume)Ordered By: Dr. Asher on 01-19-2023 Albumin [Mass/Vol] 3.6 g/dL 3.2-5.0 [facility] Serum or plasma albumin/glob ulin mass ratioOrdered By: Dr. Asher on 01-19-2023 Albumin/Globulin [Mass ratio] 0.9 {ratio} 0.9-2.4 [facility] Serum or plasma calcium luis m urement (mass/volume)Ordered By: Dr. Asher on 01-19-2023 Calcium [Mass/Vol] 9.4 mg/dL 8.5-10.1 [facility] Serum or plasma cholesterol in HDL measurement (mass/volume)Ordered By: Dr. Asher on 01-19-2023 Cholesterol in HDL [Mass/Vol] 42 mg/dL >40 [facility] Comment on above: The drugs N-Acetylcy steine and Metamizole may falsely depress this assay. Reference Range HDL <40 mg/dL Low HDL Cholesterol HDL >or= 60 mg/dL High HDL Cholesterol Serum or plasma cholesterol in VLDL measurement (mass/volume)Ordered By: Dr. Asher on 01-19-2023 Cholesterol in VLDL [Mass/Vol] 53 mg/dL 5-40 [facility] Serum or plasma creatinine m easurement (mass/volume)Ordered By: Dr. Asher on 01-19-2023 Creatinine [Mass/Vol] 1.01 mg/dL 0.70-1.30 [facility] Comment on above: The validity of the calculated GFR & GFRAA in patients over 70 years has not been determined. Clinical correlation is essential. Serum or plasma low density lipoprotein (LDL) cholesterol measurement (mass/volume)Ordered By: Dr. Asher on 01-19-2023 Cholesterol in LDL [Mass/Vol] 95 mg/dL 0-130 [facility] Serum or plasma urea nitroge n measurement (mass/volume)Ordered By: Dr. Asher on 01-19-2023 Urea nitrogen [Mass/Vol] 15 mg/dL 7-18 [facility] Thin prep Papanicolaou smear with manual screeningOrdered By: Dr. Asher on 01-19-2023 Thin prep Papanicolaou smear with manual screening 16 U/L 15-37 [facility] Thin prep Papanicolaou smear with manual screening 4 5-15 [facility] Basophil percentageon 2021 Cholesterol [Mass/Vol] 179 mg/dL <200 [facility] Work Phone: Comment on above: <200 mg/dL Desirable 200-240 mg/dL Borderline >240 mg/dL High Risk Triglyceride [Mass/Vol] 279 mg/dL <199 [facility] Work Phone: Comment on above: The drugs N-Acetylcy steine and Metamizole may falsely depress this assay.Serum Triglycerides Reference Interval Normal <150 mg/dL Borderline high 150 - 199 mg/dL High 200 - 499 mg/dL Very High > or = 500 mg/dL Serum or plasma cholesterol in HDL measurement (mass/volume)on 04-14-2022 Cholesterol in HDL [Mass/Vol] 39 mg/dL >40 [facility] Work Phone: Comment on above: The drugs N-Acetylcy steine and Metamizole may falsely depress this assay. Reference Range HDL <40 mg/dL Low HDL Cholesterol HDL >or= 60 mg/dL High HDL Cholesterol Serum or plasma cholesterol in VLDL measurement (mass/volume)on 04-14-2022 Cholesterol in VLDL [Mass/Vol] 56 mg/dL 5-40 [facility] Work Phone: Serum or plasma low density lipoprotein (LDL) cholesterol measurement (mass/volume)on 04-14-2022 Cholesterol in LDL [Mass/Vol] 84 mg/dL 0-130 [facility] Work Phone: Absolute lymphocyte counton 03-31-2022 Lymphocytes Auto (Unsp spec) [#/Vol] 1.69 10*3/uL 0.83-4.51 [facility] Work Phone: Basophil percentageon 2021 Basophil percentage 0-5 SEEN /hpf 0-5 [facility] Work Phone: Basophils/100 WBC (Bld) 0.4 % 0-1 [facility] Work Phone: Bilirubin [Mass/Vol] 0.60 mg/dL 0.20-1.00 [facility] Work Phone: Comment on above: For patients on eltr ombopag therapy, use of Dimension Tama TBIL is not recommended. Chloride [Moles/Vol] 103 mmol/L 98-107 [facility] Work Phone: Eosinophils/100 WBC (Bld) 0.8 % 0-5 [facility] Work Phone: Glucose [Mass/Vol] 82 mg/dL 74-106 [facility] Work Phone: Neutrophils (Bld) [#/Vol] 4.7 10*3/uL 2.0-7.7 [facility] Work Phone: Neutrophils/100 WBC (Bld) 65.5 % 47-70 [facility] Work Phone: Potassium [Moles/Vol] 4.1 mmol/L 3.5-5.1 [facility] Work Phone: Protein [Mass/Vol] 7.9 g/dL 6.4-8.2 [facility] Work Phone: Sodium [Moles/Vol] 137 mmol/L 136-145 [facility] Work Phone: WBC (Bld) [#/Vol] 7.1 10*3/uL 4.4-11.0 [facility] Work [facility]: Bilirubin Test strip Ql (U)o n 03-31-2022 Bilirubin Ql (U) Negative Negative [facility] Work Phone: Blood erythrocytes count (nu mber/volume)on 03-31-2022 RBC (Bld) [#/Vol] 5.36 10*6/uL 4.6-6.2 [facility]: Blood hemoglobin measurement (mass/volume)on 03-31-2022 Hemoglobin (Bld) [Mass/Vol] 16.3 g/dL 13.0-16.5 [facility] Work Phone: Blood lymphocytes/100 leukoc yteson 03-31-2022 Lymphocytes/100 WBC (Bld) 23.7 % 19-41 [facility] Work Phone: Blood monocytes/100 leukocyt eson 03-31-2022 Monocytes/100 WBC (Bld) 9.0 % 0-10 [facility] Work Phone: Blood platelet mean volumeon 03-31-2022 Platelet mean volume (Bld) [Entitic vol] 10.2 fL 6.2-12.0 [facility] Work Phone: Determination of erythrocyte mean corpuscular volume (MCV)on 03-31-2022 MCV (RBC) [Entitic vol] 88.4 fL 80-94 [facility] Work Phone: Hematocrit Auto (Bld) [Volum e fraction]on 03-31-2022 Hematocrit (Bld) [Volume fraction] 47.4 % 40-54 [facility] Work Phone: Ketones Test strip Ql (U)on 03-31-2022 Ketones Ql (U) Negative Negative [facility] Work Phone: Laboratory - Chemistry and C hemistry - challengeon 03-31-2022 ALP [Catalytic activity/Vol] 81 U/L 45-117 [facility] Work Phone: ALT [Catalytic activity/Vol] 48 U/L 16-61 [facility] Work Phone: CO2 [Moles/Vol] 30.0 mmol/L 21.0-32.0 [facility] Work Phone: Globulin (S) [Mass/Vol] 3.9 g/dL 2.2-4.2 [facility] Work Phone: Urea nitrogen/Creatinine [Mass ratio] 13.5 mg/mg 10-20 [facility] Work Phone: Laboratory - Hematology and Cell countson 03-31-2022 Erythrocyte distribution width (RBC) [Entitic vol] 39.7 fL 35.1-43.9 [facility] Work Phone: Erythrocyte distribution width (RBC) [Ratio] 12.2 % 11.6-14.6 [facility] Work Phone: Immature granulocytes/100 WBC (Bld) 0.600 % 0.0-0.9 [facility] Work Phone: Comment on above: IG% - Immature Granu locytes (promyelocytes, myelocytes and metamyelocytes) > 1% indicates that a LEFT SHIFT is Present. MCH (RBC) [Entitic mass] 30.4 pg 27.0-32.0 [facility] Work Phone: Nucleated RBC/100 WBC (Bld) [Ratio] 0 % 0-5 [facility] Work Phone: MCHC Auto (RBC) [Mass/Vol]on 03-31-2022 MCHC (RBC) [Mass/Vol] 34.4 g/dL 32-36 [facility] Work Phone: Mucus LM Ql (Urine sed)on Mucus Ql (Urine sed) 0 SEEN /hpf [facility] Work Phone: Nitrite Test strip Ql (U)on 03-31-2022 Nitrite Ql (U) Negative Negative [facility] Work Phone: No Panel Informationon 03-31 Estimated GFR (MDRD) Amer 108 mL/min >60 [facility] Work Phone: Comment on above: GFR Calc Estimated GFR (MDRD) Non-Af Amer 89 mL/min >60 [facility] Work Phone: Comment on above: Non- GFR Calc Platelets bldon 03-31-2022 Platelets (Bld) [#/Vol] 313 10*3/uL 150-450 [facility] Work Phone: Protein Test strip Ql (U)on 03-31-2022 Protein Ql (U) 15 mg/dl Negative [facility] Work Phone: Serum or plasma albumin luis m urement (mass/volume)on 03-31-2022 Albumin [Mass/Vol] 4.0 g/dL 3.2-5.0 [facility] Work Phone: Serum or plasma albumin/glob ulin mass ratioon 03-31-2022 Albumin/Globulin [Mass ratio] 1.0 {ratio} 0.9-2.4 [facility] Work Phone: Serum or plasma calcium luis m urement (mass/volume)on 03-31-2022 Calcium [Mass/Vol] 9.2 mg/dL 8.5-10.1 [facility] Work Phone: Serum or plasma creatinine m easurement (mass/volume)on 03-31-2022 Creatinine [Mass/Vol] 0.96 mg/dL 0.70-1.30 [facility] Work Phone: Comment on above: The validity of the calculated GFR & GFRAA in patients over 70 years has not been determined. Clinical correlation is essential. Serum or plasma urea nitroge n measurement (mass/volume)on 03-31-2022 Urea nitrogen [Mass/Vol] 13 mg/dL 7-18 [facility] Work Phone: Squamous epithelial cells de tection in urine sediment by light microscopyon 03-31-2022 Epithelial cells.squamous LM Ql (Urine sed) 0-5 SEEN /hpf 0-5 [facility] Work Phone: Thin prep Papanicolaou smear with manual screeningon 03-31-2022 Thin prep Papanicolaou smear with manual screening 16 U/L 15-37 [facility] Work Phone: Thin prep Papanicolaou smear with manual screening 4 5-15 [facility] Work Phone: Urine blood detectionon 03-08 RBC Ql (U) Negative Negative [facility] Work Phone: RBC Ql (U) 0 SEEN /hpf 0-5 [facility] Work Phone: Urine clarityon 03-31-2022 Clarity (U) Clear Clear [facility] Work Phone: Urine color determinationon 03-31-2022 Color (U) Yellow Yellow [facility] Work Phone: Urine glucose detectionon Glucose Ql (U) Normal mg/dl Normal [facility] Work Phone: Urine leukocyte esterase det ection by dipstickon 03-31-2022 Leukocyte esterase Test strip Ql (U) Negative Negative [facility] Work Phone: Urine pHon 03-31-2022 pH (U) 6.5 [pH] 5.0 - 8.0 [facility] Work Phone: Urine sediment bacteria coun t by microscopy (number/high power field)on 03-31-2022 Bacteria LM.HPF (Urine sed) [#/Area] 0 /[HPF] None Seen [facility] Work Phone: Urine specific gravity measu rementon 03-31-2022 Specific gravity (U) [Rel density] 1.015 1.002-1.030 [facility] Work Phone: Urobilinogen Auto test strip Ql (U)on 03-31-2022 Urobilinogen Ql (U) Normal mg/dl Normal [facility] Work Phone: Absolute lymphocyte counton 01-20-2022 Lymphocytes Auto (Unsp spec) [#/Vol] 2.32 10*3/uL 0.83-4.51 [facility] Work Phone: [phone] Basophil percentageon 2021 Basophils/100 WBC (Bld) 0.2 % 0-1 [facility] Work Phone: Bilirubin [Mass/Vol] 0.30 mg/dL 0.20-1.00 [facility] Work Phone: Comment on above: For patients on eltr ombopag therapy, use of Dimension Tama TBIL is not recommended. Chloride [Moles/Vol] 106 mmol/L 98-107 [facility] Work Phone: Eosinophils/100 WBC (Bld) 1.1 % 0-5 [facility] Work Phone: Glucose [Mass/Vol] 129 mg/dL 74-106 [facility] Work Phone: Comment on above: Fasting Glucose resu lt greater than or equal to 126 mg/dL suggests DIABETES MELLITUS per A.D.A. criteria. Neutrophils (Bld) [#/Vol] 8.8 10*3/uL 2.0-7.7 [facility] Work Phone: [phone] Neutrophils/100 WBC (Bld) 70.5 % 47-70 [facility] Work Phone: Potassium [Moles/Vol] 3.5 mmol/L 3.5-5.1 [facility] Work Phone: Protein [Mass/Vol] 7.2 g/dL 6.4-8.2 [facility] Work Phone: Sodium [Moles/Vol] 140 mmol/L 136-145 [facility] Work Phone: WBC (Bld) [#/Vol] 12.4 10*3/uL 4.4-11.0 [facility] Work Phone: Blood erythrocytes count (nu mber/volume)on 01-20-2022 RBC (Bld) [#/Vol] 5.13 10*6/uL 4.6-6.2 [facility] Work Phone: Blood hemoglobin measurement (mass/volume)on 01-20-2022 Hemoglobin (Bld) [Mass/Vol] 15.9 g/dL 13.0-16.5 [facility] Work Phone: Blood lymphocytes/100 leukoc yteson 01-20-2022 Lymphocytes/100 WBC (Bld) 18.7 % 19-41 [facility] Work Phone: Blood monocytes/100 leukocyt eson 01-20-2022 Monocytes/100 WBC (Bld) 9.1 % 0-10 [facility] Work Phone: Blood platelet mean volumeon 01-20-2022 Platelet mean volume (Bld) [Entitic vol] 10.0 fL 6.2-12.0 [facility] Work Phone: Determination of erythrocyte mean corpuscular volume (MCV)on 01-20-2022 MCV (RBC) [Entitic vol] 90.1 fL 80-94 [facility] Work Phone: Direct bilirubinon 2 Bilirubin.direct [Mass/Vol] 0.07 mg/dL 0.00-0.30 [facility] Work Phone: Hematocrit Auto (Bld) [Volum e fraction]on 01-20-2022 Hematocrit (Bld) [Volume fraction] 46.2 % 40-54 [facility] Work Phone: Laboratory - Chemistry and C hemistry - challengeon 01-20-2022 ALP [Catalytic activity/Vol] 88 U/L 45-117 [facility] Work Phone: [phone] ALT [Catalytic activity/Vol] 38 U/L 16-61 [facility] Work Phone: [phone] CO2 [Moles/Vol] 29.0 mmol/L 21.0-32.0 [facility] Work Phone: Globulin (S) [Mass/Vol] 3.6 g/dL 2.2-4.2 [facility] Work Phone: Lipase [Catalytic activity/Vol] 109 U/L 73-393 [facility] Work Phone: Urea nitrogen/Creatinine [Mass ratio] 14.4 mg/mg 10-20 [facility] Work Phone: Laboratory - Hematology and Cell countson 01-20-2022 Erythrocyte distribution width (RBC) [Entitic vol] 39.1 fL 35.1-43.9 [facility] Work Phone: Erythrocyte distribution width (RBC) [Ratio] 11.9 % 11.6-14.6 [facility] Work Phone: Immature granulocytes/100 WBC (Bld) 0.400 % 0.0-0.9 [facility] Work Phone: Comment on above: IG% - Immature Granu locytes (promyelocytes, myelocytes and metamyelocytes) > 1% indicates that a LEFT SHIFT is Present. MCH (RBC) [Entitic mass] 31.0 pg 27.0-32.0 [facility] Work Phone: Nucleated RBC/100 WBC (Bld) [Ratio] 0 % 0-5 [facility] Work Phone: MCHC Auto (RBC) [Mass/Vol]on 01-20-2022 MCHC (RBC) [Mass/Vol] 34.4 g/dL 32-36 [facility] Work Phone: No Panel Informationon 01-20 Troponin I High Sensitivity 5 pg/mL 3.0-78.0 [facility] Work Phone: Comment on above: Please Note: New Humaira t Units and Gender Specific Reference Ranges. For more information see Policy Stat Procedure Tama High Sensitivity Troponin (TNIH) and attachments. D-Dimer Quantitative (PE/DVT) < 0.27 FEU/ug/m 0.27-0.49 [facility] Work Phone: Comment on above: NORMAL D-Dimer level (<0.50) indicates no DVT or PE. Estimated Creatinine Clearance Calc 82.43 ml/min [facility] Work Phone: Estimated GFR (MDRD) Amer 85 mL/min >60 [facility] Work Phone: Comment on above: GFR Calc Estimated GFR (MDRD) Non-Af Amer 70 mL/min >60 [facility] Work Phone: Comment on above: Non- GFR Calc Platelets bldon 01-20-2022 Platelets (Bld) [#/Vol] 323 10*3/uL 150-450 [facility] Work Phone: Serum or plasma albumin luis m urement (mass/volume)on 01-20-2022 Albumin [Mass/Vol] 3.6 g/dL 3.2-5.0 [facility] Work Phone: Serum or plasma calcium luis m urement (mass/volume)on 01-20-2022 Calcium [Mass/Vol] 9.1 mg/dL 8.5-10.1 [facility] Work Phone: Serum or plasma creatinine m easurement (mass/volume)on 01-20-2022 Creatinine [Mass/Vol] 1.18 mg/dL 0.70-1.30 [facility] Work Phone: Comment on above: The validity of the calculated GFR & GFRAA in patients over 70 years has not been determined. Clinical correlation is essential. Serum or plasma urea nitroge n measurement (mass/volume)on 01-20-2022 Urea nitrogen [Mass/Vol] 17 mg/dL 7-18 [facility] Work Phone: Thin prep Papanicolaou smear with manual screeningon 01-20-2022 Thin prep Papanicolaou smear with manual screening 15 U/L 15-37 [facility] Work Phone: Thin prep Papanicolaou smear with manual screening 5 5-15 [facility] Work Phone: Vital Signs Date Time Vital Sign Value Performing Clinician Facility 02-26-2025 10:13-0400 Body height 182.88 cm Owen Reza PA Work Phone: [facility] 02-26-2025 10:13-0400 Body mass index (BMI) [Ratio] 30.1 kg/m2 Owen Reza PA Work Phone: [facility] 02-26-2025 10:13-0400 Body temperature 97.8 [degF] Owen Juan Alberto PA Work Phone: [facility] 02-26-2025 10:13-0400 Body weight 100.69 kg Owen Wayt PA Work Phone: [facility] 02-26-2025 10:13-0400 Diastolic blood pressure 84 mm[Hg] Owen Reza PA Work Phone: [facility] 02-26-2025 10:13-0400 Heart rate 75 /min Owen Juan Alberto PA Work Phone: [facility] 02-26-2025 10:13-0400 Respiratory rate 16 /min Owen Juan Alberto PA Work Phone: [facility] 02-26-2025 10:13-0400 SaO2% (BldA) [Mass fraction] 98 % Owen Reza PA Work Phone: [facility] 02-26-2025 10:13-0400 Systolic blood pressure 132 mm[Hg] Owen SMITH Work Phone: [facility] 02-15-2024 10:09-0400 Diastolic blood pressure 94 mm[Hg] Gregory Chaney MD Work Phone: [facility] 02-15-2024 10:09-0400 Heart rate 69 /min Gregory Chaney MD Work Phone: [facility] 02-15-2024 10:09-0400 Systolic blood pressure 149 mm[Hg] Gregory Chaney MD Work Phone: [facility] 02-15-2024 10:04-0400 Body height 182.9 cm Gregory Chaney MD Work Phone: [facility] 02-15-2024 10:04-0400 Body mass index (BMI) [Ratio] 28.48 kg/m2 Gregory Chaney MD Work Phone: [facility] 02-15-2024 10:04-0400 Body weight 95.25 kg Gregory Chaney MD Work Phone: [facility] 01-12-2024 12:52-0400 Blood Pressure Location ISABELLA BAEZA MD [facility] 01-12-2024 12:52-0400 Blood Pressure Method ISABELLA BAEZA MD [facility] 01-12-2024 12:52-0400 Diastolic Blood Pressure Non-Invasive 81 mm[Hg] ISABELLA BAEZA MD [facility] 01-12-2024 12:52-0400 Heart rate 72 /min ISABELLA BAEZA MD [facility] 01-12-2024 12:52-0400 Respiratory rate 18 /min ISABELLA BAEZA MD [facility] 01-12-2024 12:52-0400 Systolic Blood Pressure Non-Invasive 163 mm[Hg] ISABELLA BAEZA MD [facility] 01-12-2024 10:02-0400 Blood Pressure Location ISABELLA BAEZA MD [facility] 01-12-2024 10:02-0400 Blood Pressure Method ISABELLA BAEZA MD [facility] 01-12-2024 10:02-0400 Body temperature 98.24 [degF] ISABELLA BAEZA MD [facility] 01-12-2024 10:02-0400 Diastolic Blood Pressure Non-Invasive 112 mm[Hg] ISABELLA BAEZA MD [facility] 01-12-2024 10:02-0400 Heart rate 74 /min ISABELLA BAEZA MD [facility] 01-12-2024 10:02-0400 Respiratory rate 18 /min ISABELLA BAEZA MD [facility] 01-12-2024 10:02-0400 Systolic Blood Pressure Non-Invasive 160 mm[Hg] ISABELLA BAEZA MD [facility] 01-19-2023 09:59-0400 Body height 182.[address] Darius Asher Work Phone: [facility] 01-19-2023 09:59-0400 Body mass index (BMI) [Ratio] 29.1 kg/m2 Dr. Darius Asher Work Phone: [facility] 01-19-2023 09:59-0400 Body temperature 98.5 [degF] Dr. Darius Asher Work Phone: [facility] 01-19-2023 09:59-0400 Body weight 97.[address] Darius Asher Work Phone: [facility] 01-19-2023 09:59-0400 Diastolic blood pressure 84 mm[Hg] Dr. Darius Asher Work Phone: [facility] 01-19-2023 09:59-0400 Heart rate 80 /min Dr. Darius Asher Work Phone: [facility] 01-19-2023 09:59-0400 Respiratory rate 14 /min Dr. Darius Asher Work Phone: [facility] 01-19-2023 09:59-0400 SaO2% (BldA) [Mass fraction] 96 % Dr. Darius Asher Work Phone: [facility] 01-19-2023 09:59-0400 Systolic blood pressure 132 mm[Hg] Dr. Darius Asher Work Phone: [facility] 04-14-2022 11:10-0400 Diastolic blood pressure 88 mm[Hg] No Primary Care Physician [facility] Work Phone: 04-14-2022 11:10-0400 Systolic blood pressure 138 mm[Hg] No Primary Care Physician [facility] Work Phone: 04-14-2022 10:07-0400 Body height 182.88 cm No Primary Care Physician [facility] Work Phone: 04-14-2022 10:07-0400 Body mass index (BMI) [Ratio] 28.8 kg/m2 No Primary Care Physician [facility] Work Phone: 04-14-2022 10:07-0400 Body temperature 98.5 [degF] No Primary Care Physician [facility] Work Phone: 04-14-2022 10:07-0400 Body weight 96.61 kg No Primary Care Physician [facility] Work Phone: 04-14-2022 10:07-0400 Heart rate 88 /min No Primary Care Physician [facility] Work Phone: 04-14-2022 10:07-0400 Respiratory rate 14 /min No Primary Care Physician [facility] Work Phone: 04-14-2022 10:07-0400 SaO2% (BldA) [Mass fraction] 97 % No Primary Care Physician [facility] Work Phone: 03-31-2022 10:49-0400 Diastolic blood pressure 90 mm[Hg] No Primary Care Physician [facility] Work Phone: 03-31-2022 10:49-0400 Systolic blood pressure 158 mm[Hg] No Primary Care Physician [facility] Work Phone: 03-31-2022 10:01-0400 Body height 182.88 cm No Primary Care Physician [facility] Work Phone: 03-31-2022 10:01-0400 Body mass index (BMI) [Ratio] 29.1 kg/m2 No Primary Care Physician [facility] Work Phone: 03-31-2022 10:01-0400 Body temperature 97.2 [degF] No Primary Care Physician [facility] Work Phone: 03-31-2022 10:01-0400 Body weight 97.52 kg No Primary Care Physician [facility] Work Phone: 03-31-2022 10:01-0400 Heart rate 82 /min No Primary Care Physician [facility] Work Phone: 03-31-2022 10:01-0400 Respiratory rate 16 /min No Primary Care Physician [facility] Work Phone: 03-31-2022 10:01-0400 SaO2% (BldA) [Mass fraction] 98 % No Primary Care Physician [facility] Work Phone: 01-20-2022 14:00-0400 Body height 180.34 cm [facility] Work Phone: 01-20-2022 14:00-0400 Body mass index (BMI) [Ratio] 30.7 kg/m2 [facility] Work Phone: 01-20-2022 14:00-0400 Body temperature 98.3 [degF] [facility] Work Phone: 01-20-2022 14:00-0400 Body weight 100 kg [facility] Work Phone: 01-20-2022 05:36-0400 Diastolic blood pressure 82 mm[Hg] [facility] Work Phone: 01-20-2022 05:36-0400 Heart rate 86 /min [facility] Work Phone: 01-20-2022 05:36-0400 Respiratory rate 25 /min [facility] Work Phone: 01-20-2022 05:36-0400 SaO2% (BldA) [Mass fraction] 96 % [facility] Work Phone: 01-20-2022 05:36-0400 Systolic blood pressure 116 mm[Hg] [facility] Work Phone: Encounters Encounter Date Encounter Type Care Provider Facility Start: 07-08-2025 ambulatory Owen SMITH Facilit y:[facility] Start: 06-17-2025 Encounter for preprocedural laboratory examination [facility] Start: 06-17-2025 ambulatory [facility] lity:[facility] Start: 03-03-2025 Encounter for genera l adult medical examination without abnormal findings Owen SMITH [facility] Start: 02-26-2025 End: 02-26-2025 ambulatory Owen SMITH Work Phone: -[facility] Start: 02-26-2025 End: 02-26-2025 Patient encounter procedure Owen SMITH -[facility] Start: 02-26-2025 Patient encounter status Zakia SMITH Work Phone: [facility] Start: 02-26-2025 End: 02-26-2025 Patient encounter procedure Owen SMITH [facility] Work Phone: Start: 02-26-2025 End: 02-26-2025 ambulatory Owen SMITH Work Phone: [facility] Start: 02-26-2025 End: 02-26-2025 ambulatory Owen SMITH Facility:[facility] Start: 07-24-2024 End: 07-24-2024 ambulatory Owen SMITH [facility] Start: 02-15-2024 End: 02-15-2024 Office outpatient new 20 minutes Gregory Chaney MD Work Phone: [facility] Comment on above: Gross hematuria Start: 02-15-2024 End: 02-15-2024 ambulatory GREGORY CHANEY [facility] Start: 01-12-2024 End: 01-12-2024 Emergency department patient visit ISABELLA BAEZA MD [facility] Start: 01-09-2024 Telephone encounter Kwame metzger MD Work Phone: [facility] Comment on above: Appointment Request (New patient request; Referral from Dr. Jonatan Reza ) Start: 01-19-2023 End: 01-19-[address] Darius Asher Work Phone: [facility] Work Phone: Start: 01-19-2023 End: 01-19-[address] Darius Asher Work Phone: [facility] Start: 04-14-2022 End: 04-14-2022 ambulatory No Primary Care Physician [facility] Work Phone: Start: 04-14-2022 End: 04-14-2022 Patient encounter procedure No Primary Care Physician [facility]-Laboratory, [facility] Start: 04-14-2022 End: 04-14-2022 Patient encounter procedure No Primary Care Physician [facility] Start: 04-06-2022 End: 04-06-2022 ambulatory No Primary Care Physician [facility] Work Phone: Start: 04-06-2022 End: 04-06-2022 Patient encounter procedure No Primary Care Physician [facility]-Cat Scan, [facility] Start: 03-31-2022 End: 03-31-2022 ambulatory No Primary Care Physician [facility] Work Phone: Start: 03-31-2022 End: 03-31-2022 Patient encounter procedure No Primary Care Physician [facility]-Laboratory, [facility] Start: 03-31-2022 End: 03-31-2022 Patient encounter procedure No Primary Care Physician [facility] Start: 01-20-2022 End: 01-20-2022 Emergency department patient visit [facility]-Emergency Department Procedures Date Procedure Procedure Detail Performing [...] or older (1 - 1-dose 60+ series) [facility] Start: 02-26-2025 Complete blood count [facility] Start: 02-26-2025 Comprehensive metabolic 2000 panel - Serum or Plasma [facility] Start: 02-26-2025 Lipid 1996 panel - Serum or Plasma [facility] Start: 02-26-2025 Prostate specific antigen measurement [facility] Start: 04-07-2024 Influenza vaccination [facility] Start: 2024 Zoster Vaccines (1 of 2) Zoster Vaccines (1 of 2) [facility] Start: 02-15-2024 End: 02-15-2024 Patient encounter procedure 02/15/2024 10:00 AM EDT Office Visit [facility] [address] [place] [id number] Gregory Chaney MD [address] [place] [address] [facility] Start: 04-07-2023 COVID-19 Vaccine ( season) COVID-19 Vaccine ( season) [facility] Start: 03-31-2022 Patient referral [facility] Work Phone: Start: 1993 DTaP/Tdap/Td Vaccines (1 - Tdap) DTaP/Tdap/Td Vaccines (1 - Tdap) [facility] Start: 1993 Hepatitis B Vaccines (1 of 3 - 19+ 3-dose series) Hepatitis B Vaccines (1 of 3 - 19+ 3-dose series) [facility] Start: 1992 Diabetes mellitus screening Diabetes Screening [facility] Start: 1992 Hepatitis C screening Hepatitis C Screening [facility] Start: 1986 Depression Screening Depression Screening [facility] Start: 1975 MMR Vaccines (1 of 1 - Standard series) MMR Vaccines (1 of 1 - Standard series) [facility] Start: 1974 HIV screening HIV Screening [facility] Start: 1974 Lipid panel Lipid Panel [facility] Start: 1974 Screening for malignant neoplasm of colon [facility] Alanine aminotransfe rase [Enzymatic activity/volume] in Serum or Plasma [facility] Albumin [Mass/volume ] in Serum or Plasma [facility] Alkaline phosphatase [Enzymatic activity/volume] in Serum or Plasma [facility] Anion gap in Serum o r Plasma [facility] Bilirubin, total measurement [facility] BUN/Creatinine ratio [facility] Calcium [Mass/volume ] in Serum or Plasma [facility] Carbon dioxide, tota l [Moles/volume] in Central venous blood [facility] Cholesterol [Mass/vo lume] in Serum or Plasma [facility] Cholesterol in HDL [Mass/volume] in Serum or Plasma [facility] Creatinine [Mass/vol ume] in Serum or Plasma [facility] CT Abdomen and Pelvi s W contrast IV [facility] Work Phone: Erythrocyte mean corpuscular volume determination [facility] Glucose [Mass/volume ] in Serum or Plasma [facility] Hematocrit [Volume Fraction] of Blood [facility] Hemoglobin [Mass/vol ume] in Blood [facility] Leukocytes [#/volume ] in Blood [facility] Lipid 1996 panel - S johanny or Plasma [facility] Work Phone: Low density lipoprot ein cholesterol measurement [facility] Mean corpuscular hem oglobin concentration determination [facility] Mean corpuscular hem oglobin determination [facility] Measurement of renal function [facility] Patient Education ED Chest Pain, Uncertain Cause [facility] Work Phone: Patient referral [facility] Work Phone: Platelets [#/volume] in Blood [facility] Potassium measurement [facility] Red blood cell count [facility] Red cell distributio n width determination [facility] Serum chloride measurement [facility] Sodium measurement [facility] Total cholesterol:HD L ratio measurement [facility] Total protein measurement [facility] Triglycerides measurement [facility] Urea nitrogen [Mass/ volume] in Serum or Plasma [facility] VLDL cholesterol measurement [facility] Payers Date Payer Category Payer Unknown [id number] 2024 Self-pay [id number] 2024 Unknown [id number] 1974 Unknown [id number] [id number] [id number] Unknown [id number] Unknown [id number] 2.16.8 [id number] Unknown [id number] 2.16.8 [id number] Unknown [id number] 2.16.8 [id number] Unknown [id number] 2.16.8 [id number] Unknown [id number] 2.16.8 [id number] Social History Date Type Detail Facility Start: 01-20-2022 End: 01-18-2023 Tobacco smoking status CTIS Unknown if ever smoked [facility] Start: 1974 Sex Assigned At Male [facility] Start: 1974 Sex Assigned At Not on file [facility] Gender identity Not on file [facility] Start: 05-20-2019 End: 11-15-2023 Tobacco smoking status Never smoked tobacco (finding) [facility] Functional Status Date Assessment Result Facility 01-12-2024 Functional Status Independent [facility] 01-12-2024 Functional Status ID band on, Call device within reach, Bed in low position, Wheels locked, Upper/Half-Length side-rails up, Safety level maintained [facility] Mental Status Date Assessment Result Facility 01-12-2024 Mental Status Orientation Oriented x 4 [facility]3] 01-12-2024 Mental Status [facility] 01-20-2022 Cognitive function Voice/Name [facility] Work Phone: Clinical Notes 01-09-2024 to 02-26-2025 Note Date & Type Note Facility 02-26-2025 Evaluation note Diagnosis Onset Date Resolution Colon cancer screening acute Ju ly 2024 9:57am Essential hypertension acute Ju ly 2024 9:57am Mixed hyperlipidemia acute February 26, 2025 9:57am Prostate cancer screening acute February 26, 2025 9:57am Renal calculi acute February 26, 2025 9:57am [facility] Work Phone: [phone]) 579-826607-11-2024 History of Present illness Narrative* Gregory Chaney [...] right renal calculus He was seen in [facility], diagnosed with bacterial prostatitis, gross hematuria [...] Housing Stability: Not on file Family History: @FAMXNH@ PHYSICAL EXAM: VITALS: BP (!) 149/94 Pulse [...] BILIRUBINUR Negative 02/15/2024 Review: Records reviewed from [facility] Ureteroscopy I discussed the procedure of ureteroscopy. [...] AUTO W/O MICRO Obtain CT results from [facility] Given gross hematuria, he will need cytoscopy Given the large right renal calculus, he potentially will need laser lithotripsy vs eswl So in order to evaluate stone and work up gross hematuria, will plan on cytoscopy, retrograde pyelograms, right ureteroscopy and laser lithotripsy, stent No follow-ups on file. Gregory Chaney MD 02/15/24 10:20 AM documented in this [facility]06-07-2024 Hospital Discharge instructions Patient Education 01/12/2024 [...] for 8 hours or increasing bladder pressure [phone] [employer]. [address] [place] [address]. All rights reserved. This information is not [...] the nose or gums or easy bruising 8940-9186 [employer]. [address] [place] [address], [place] [address]. All rights reserved. This information is not [...] 6 to 12 week course of antibiotics. 6775-3401 [employer] [address] [place] [address]. All rights reserved. This information is not intended as a substitute for professional medical care. Always follow yourhealthcare professional's instructions. Follow Up Care 01/12/2024 09:53:16 With:JONATAN REZA Address: [address] [place] [id number] [phone] When:3-7 days With:GREGORY CHANEY MD Address: [address] [place] [id number] [phone] When:3-7 days [facility] 06-07-2024 Note Discharge Instructions Thank you for allowing [facility] to assist you with your healthcare needs. The following is importantdischarge information regarding your hospital visit. Diagnosis from Today's Visit Hematuria Kidney stone Prostatitis What to Do Next Instructions from Your Care Team No qualifying data available. Post Acute Orders No qualifying data available. You Need to Schedule the Following Appointments Follow Up with JONATAN REZA When:Within 3-7 days Where:[address] [place] [phone] Follow Up with GREGORY CHANEY MD When:Within 3-7 days Where:[address] [place] [id number] [phone] Allergies NKA Medications Please ask your primary [...] pain Prostatitis Duration: 3 Days Pickup at [facility] New ciprofloxacin (Cipro 500 mg oral tablet) 1 tab(s) by mouth Every 12 hours Duration: 14 Days Pickup at [facility]48 Unchanged ondansetron (Zofran 4 mg oral tablet) 1 tab(s) by mouth Every 8 hours as needed for Nausea Unchanged tamsulosin (Flomax 0.4 mg oral capsule) 1 cap by mouth Once a day Pharmacy Information [facility]: [address] [place], [place] [phone] Please take this list to your next [...] for 8 hours or increasing bladder pressure 0745-4987 [employer] [address] [place] [address]. All rights reserved. This information is not [...] the nose or gums or easy bruising 3586-8372 [employer]. [address] [place] [address], [place] [address]. All rights reserved. This information is not [...] 6 to 12 week course of antibiotics. 0683-4215 [employer]. [address] [place] [address]. All rights reserved. This information is not intended as a substitute for professional medical care. Always follow yourhealthcare professional's instructions. Additional Information VACCINATE! IT SAVES LIVES! Members of the community who have not yet received the COVID-19 vaccine and would like to receive it can visit one of [facility] vaccine clinics. There are many vaccine clinic locations within the [facility]. For locations and available times, please visit [email or web address].[place].gov/. It is important to note that some COVID mobile vaccine clinics are held outdoors and may be canceled in rainy or stormy conditions. To learn more about pediatric vaccinations (ages 5-11), we invite you to visit the [facility] webpage. [email or web address]/[email or web address] [email or web address] learn more about the COVID-19 vaccine, we invite you to visit the CDC website for a list of frequently asked questions. https://www.cdc.gov/coronavirus/2019-ncov/vaccines/faq.html [facility] Patient [facility] Access Instructions: Stay connected with your healthcare team and access your personal medical information anytime with the [employer] Patient Portal. If you would like a full copy of your medical records please contact the [facility] Medical Records Department Monday through Monday between 8a.m. and 4:30p.m. Please follow the directions below to access the portal: 1.Access the email account you provided upon registration to the [facility].2.Look for an invitation email from [facility].3.Open the email and access the invitation link: Accept Invitation to [facility]4.Fill in the required franks to create your account. Sign into [email or web address] with your username and password that you [...] you will allow to register on the [facility] [employer] Patient Portal for access to your information. You can also access the [facility] Patient Portal on the [employer] Simply click on Health Records under [employer] and then click on the [facility] logo. HOW TO SAFELY DISPOSE OF PRESCRIPTION [...] Call your local pharmacy or go to [email or web address] to find one close to you.3.Make use of household items: Use cat litter or old coffee grounds to dispose medications if other options arenot available. Mix your drugs with these household products, seal them in an airtight container andthrow it into the garbage. Call [facility]: [phone] to be sure your drugs can be [...] been reviewed and explained to me and I,HUSSEIN HUNTER M understand my current condition and have read and understand these discharge instructions. I have received a written copy of the plan/instructions. If I have questions, I am aware that I should contact my doctor. Patient/Survey Operations Director Signature: Date/Time: Relationship to Patient: Witness Name/Signature: Date/Time: [facility]06-07-2024 Note ORIGINAL EXAMINATION: CT OF THE [...] Sign Date: 01/12/2024 11:24:43 AM Ordering Provider: [facility]06-05-2024 Telephone encounter Note* Telephone Encounter - Shahrzad Grace - 01/10/2024 9:02 AM EDT Pt called back, pt schedule first available with Dr. Chaney on 02/15/24 in [facility] and placed onwait list for Edwin in case of a cancellation. [id number] Miscellaneous Notes* Telephone Encounter - Shahrzad Grace - 01/10/2024 9:02 AM EDT Pt called back, pt schedule first available with Dr. Chaney on 02/15/24 in [facility] and placed onwait list for [facility] in case of a cancellation. * Telephone Encounter - Shahrzad Grace - 01/10/2024 8:33 AM EDT Pt's called to make him an appt for hematuria and possible kidney stone. She stated that he has a referral, which was found in [facility] [employer]. Pt lives in [facility] is the closest office.First available there is 03/20/24. First available in [facility] office is 02/15/24. states she will talk [...] Please contact Felicity and advise. Office Name: [facility] Urology documented in this [facility]06-05-2024 NotePt's called to make him an appt for hematuria and possible kidney stone. She stated that he has a referral, which was found in [employer]. Pt lives in [facility] is the closest office. First available there is 03/20/24. First available in [facility] office is 02/15/24. states she will talk to the pt and see if he can wait that long to be seen and will andrew back.[facility]06-05-2024 Telephone encounter Note* Telephone Encounter - Shahrzad Grace - 01/10/2024 8:33 AM EDT Pt's called to make him an appt for hematuria and possible kidney stone. She stated that he has a referral, which was found in [employer]. Pt lives in [place], [place] is the closest office.First available there is 03/20/24. First available in [facility] office is 02/15/24. states she will talk to the pt and see if he can wait that long to be seen and will andrew back. [id number] Telephone encounter Note* Telephone Encounter - Ce Elias - 01/09/2024 3:28 PM EDT Name of Caller: Felicity (Spouse) Contact Reason for Appointment: Felicity is requesting a call back to schedule a new patient appointment for Hussein and states that a referral was sent from Dr. Jonatan Reza. Please contact Felicity and advise. Office Name: [facility] Urology GIVTEDEvaluation + Plan note No data available for this section [facility] Evaluation noteNo assessment information available [facility] Work Phone: Evaluation note* Diagnosis Onset Date Resolution Status Essential hypertension acute Lower abdominal pain acute Screening for colon cancer n oneactive Screening for cardiovascular condition noneactive Establishing care with new doctor, encounter for noneactive [facility] Work Phone: Evaluation note* Diagnosis Onset Date Resolution Status Essential hypertension acute Lower abdominal pain acute Screening for colon cancer n oneactive Screening for cardiovascular condition noneactive Establishing care with new doctor, encounter for noneactive Essential hypertension acute Lower abdominal pain acute Screening for cardiovascular condition noneactive Fatty liver noneactive [facility] Work Phone: Evaluation note* Diagnosis Onset Date Resolution Status Essential hypertension acute Mixed hyperlipidemia acute Fatty liver noneactive [facility] Work Phone: Evaluation note* Diagnosis Gross hematuria [facility]* Diagnosis Onset Date Resolution Status Admit Date Colon cancer screening acute Ju ly 2024 9:57am [facility] Work Phone: Hospital Discharge instructions Additional Instructions Please keep a blood pressure journal based on your elevated readings at today's visit. Please follow-up with family doctor for further evaluation and return to the ER should you have any further [facility] Work Phone: Reason for referral (narrative)No reason for referral information [facility] Work Phone: Chief Complaint and Reason for Visit Chief Complaint cp Chief Complaint cp [employer]ESE [employer] EST CARE, NEEDS PPW Reason for Visit Essential hypertensi on Lower abdominal pain Screening for colon cancer Screening for cardiovascular condition Establishing care with new doctor, encounter for Chief Complaint cp [employer] EST CARE, NEEDS PPW LOWER ABD PAIN Reason for Visit Essential hypertensi on Lower abdominal pain Screening for colon cancer Screening for cardiovascular condition Establishing care with new doctor, encounter for Chief Complaint cp [employer] EST CARE, NEEDS PPW LOWER ABD PAIN [...] No January 20, 2022 2:02am Power of Etl Application Developer No January 20 2:02am Summary Purpose Family [...] Pro vider, Attending Provider, Referring Provider Active Production [employer]about Relationship Specialty Start Date End Date Kwame Hicks MD [address] [place] [phone] Surgeon Urology 01/09/24 Production Roustabout Relationship Specialty Start Date End Date Kwame Hicks MD [address] [place] [phone] Surgeon Urology 01/09/24 Gregory Chaney MD [address] [place] [address] Surgeon Urology 02/15/24 Team Status: Active Member Role/Relationship Status Dates No Primary Care Physician Family Provider Active Owen SMITH PA Primary Care Provider Active Team Status: Inactive Member Role/Relationship Status Dates Owen SMITH PA Primary Care Provider Active Start: February 26, 2025 End: February 26, 2025 Owen SMITH PA Attending Provider Active St art: February 26, 2025 End: February 26, 2025 Owen Reza PA, PA Referring Provider Active St art: February 26, 2025 End: February 26, 2025 Team Status: Active Member Role/Relationship Status Dates Owen SMITH PA Primary Care Provider Active Start: February 26, 2025 Owen SMITH PA Attending Provider Active St art: February 26, 2025 Owen SMITH, PA Referring Provider Active St art: February 26, 2025 Team Status: Inactive Member Role/Relationship Status Dates Owen SMITH PA Primary Care Provider Active Start: February 26, 2025 End: February 26, 2025 LUIS Dickson Attending Provider [...] ER Specialty Diagnoses / Procedures Referred By Contac t Referred To Contact Urology Diagnoses Gross hematuria Procedures Eval & Tx Darius Asher MD [address] [place] [address] Gregory Chaney MD [address] [place] [address] Referral ID Status Reason Start Date Expiration Date V isits Requested Visits Authorized [id number] Pending Review 01/10/2024 01/09/2025 1 1 (unrecognized sect ion and content) No Status Records FoundNo Status Records FoundNo Status Records Found INFORMATION SOURCE (unrecogn ized section and content) DATE CREATED AUTHOR 01/17/2024 [facility] ([place]) DATE CREATED AUTHOR AUTHOR'S ORGANIZ ATION 02/21/2024 [facility] DATE CREATED AUTHOR AUTHOR'S ORGANIZ ATION 06/18/2025 [facility] FOR RECORDS PERTAINING TO PATIENTS WHO [...] BE BASED ON THE PRIMARY CLINICAL RECORDS. [employer] provides no warranty or guarantee of the accuracy or completeness of information in this document.
[2025-07-04] MEDS: Lactated Ringers 1,000 ML 15 ML IV (07:15)
--- NOTE | 2025-07-04 07:18 | PRE.ANES_ITS ---
ASA Classification* ASA Classification ASA Classification: 2 Assessment & Plan Anesthesia* Anesthesia Assessment Anesthesia Assessment: Discussed sedation and/or anesthesia options, risks, benefits, and alternatives with patient/parents/legal guardian/POA. Questions invited. The patient/parents/legal guardian/POA seems to understand and agrees to proceed with anesthesia plan. Reviewed the physical assessment, medical history, allergy history and patient home medications list prior to surgery/procedure/anesthetic and documented any changes. Performed airway and anesthesia risk assessments. Anesthesia Type Anesthesia Type: General Anesthesia Focused Assessment* Temperature: 98.6 F Pulse Rate: 91 Blood Pressure: 139/85 Respiratory Rate: 16 Pulse Ox: 94 Airway Assessment Mouth opens: >3 cm Mallampati Score: II Labs Anesthesia Preop lab: CBC WBC, (4.4-11.0) 9.3 K/mm3 06/17/25, 15:18 RBC, (4.6-6.2) 5.01 M/mm3 06/17/25, 15:18 Hgb, (13.0-16.5) 15.4 g/dL 06/17/25, 15:18 Hct, (40-54) 43.6 % 06/17/25, 15:18 Plt Count, (150-450) 309 K/mm3 06/17/25, 15:18 CHEMISTRY Potassium, (3.3-5.1) 4.1 mmol/L 06/17/25, 15:18 Sodium, (133-145) 138 mmol/L 06/17/25, 15:18 BUN, (4-19) 18 mg/dL 06/17/25, 15:18 Creatinine, (0.70-1.20) 1.16 mg/dL 06/17/25, 15:18 Glucose, (70-99) 95 mg/dL 06/17/25, 15:18 COAG Pre-Assessment Diagnosis/Proposed Procedure Planned Operative Procedure(s): RIGHT URETEROSCOPY LASER STENT Anesthesia History 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 When Was Last Pacemaker Check QUESTION #4 FULL TEXT: You/Your Family Experience fever (hyperthermia) with Anesthesia Last Oral Intake Last Oral intake: Last Oral Intake NPO since 00:00 07/04/25 07:15 Meds taken in AM with sips of No 07/04/25 07:15 water? Meds patient instructed to take am of surgery PONV PONV - inside sales advertising executive: PONV - inside sales advertising executive Female No 07/02/25 10:44 HX of Motion Sickness No 07/02/25 10:44 HX of N/V After Surgery No 07/02/25 10:44 Non-Smoker Yes 07/02/25 10:44 Duration of Surgery greater Yes 07/02/25 10:44 than 60 minutes Number of Risk Factors 2 07/02/25 10:44 PONV Score Moderate Risk 07/02/25 10:44 Height & Weight Height & Weight: Anesthesia: Height & Weight Height 6 ft 07/04/25 07:15 Weight: 100 kg 07/04/25 07:15 Body Mass Index (BMI) 29.9 07/04/25 07:15 Respiratory Assessment Respiratory Assessment - inside sales advertising executive: Respiratory Tract Infection Hx - inside sales advertising executive Hx Respiratory Tract Infection No 07/02/25 10:44 STOP Sleep Apnea STOP Sleep Apnea - inside sales advertising executive: STOP Sleep Apnea - inside sales advertising executive Hx Hypertension Yes: CONTROLLED WITH MED 07/02/25 10:44 Hx Sleep Apnea No 07/02/25 10:44 CPAP BIPAP Do you snore loudly (louder Yes 07/02/25 10:44 than talking or can be heard Do you often feel tired/ No 07/02/25 10:44 fatigued/ sleepy during daytime? Has anyone observed you stop No 07/02/25 10:44 breathing during sleep? STOP Results Positive 07/02/25 10:44 QUESTION #5 FULL TEXT : Do you snore loudly (louder than talking or can be heard through closed doors)? 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 Specify any problems Hx of Preganancy in last 3 N/A 07/02/25 10:44 Months Nurse Filling Out Transfusion [email or web address] 07/02/25 10:44 & Questions: Date: 07/02/25 07/02/25 10:44 Time: 10:45 07/02/25 10:44 Patient unable to answer at this time (ie. confused, unrespo /Reproduction History /Reproductive History - inside sales advertising executive: /Reproductive Hx- inside sales advertising executive Hx Now No 07/02/25 10:44 Gestational Age (in weeks): EDC: Hx Hx Para Hx Section SAB No 07/02/25 10:44 Does the father of the baby or his family experience fever w Father of the baby Malignant Hypertension history comment Active Medications Active Medications: Current Medications Generic Name Dose Route Start Last Admin Trade Name Freq PRN Reason Stop Dose Admin Cefazolin Sodium 2 gm/ Sodium 110 mls @ 200 mls/hr 07/04/25 09:00 Chloride IV 07/04/25 09:32 INTRAOP ONE Lactated Ringer's 1,000 mls @ 15 mls/hr 07/04/25 07:00 07/04/25 07:15 IV 15 mls/hr .Q48H ROMAROI Administration PFSH Medical History Fatty liver Non-smoker History of stress test Hypertension Home Medications ?Medication ?Instructions ?Recorded ?Last Taken ?Type losartan 50 mg tablet 50 mg PO DAILY #90 TABLETS 1 07/03/25 Rx ciprofloxacin HCl 500 mg tablet 500 mg PO BID 07/04/25 07/03/25 History oxycodone 5 mg tablet 5 mg PO Q6H PRN PRN pain 07/03/25 History phenazopyridine 100 mg tablet 100 mg PO TID PRN PRN pa in 07/04/25 07/03/25 History tamsulosin 0.4 mg capsule 0.4 mg PO DAILY 07/04/25 History Allergy/AdvReac Type Severity Reaction Status Date / Time No Known Allergies Allergy Verified 07/04/25 07:14 Family History Father Hypertension Surgical History Hx of cystoscopy Social History household members: family housing: house current occupational status: employed 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
[2025-07-04] MEDS: Midazolam 2 MG/2 ML Syringe IV (08:40)
[2025-07-04] MEDS: Lactated Ringers 2,000 ML 2000 ML IV (08:40)
[2025-07-04] MEDS: Lidocaine 1% (5 ml sdv) 5 ML Vial IV (08:40)
[2025-07-04] MEDS: Cefazolin 1 GM/5 ML Vial 2 GM IV (08:41)
--- NOTE | 2025-07-04 09:00 | CALC_PTH ---
PATIENT: HUSSEIN PLUMMER LOC: [facility] – [place] U#:[id number] AGE/SX: 50/M ROOM: RE07/04/[address]: Dr. Ke Kelley MD : 1975 BED: DIS: 07/04/2025 SPEC #: [id number] RECD: 07/04/25 10:59 STATUS: VON REAnushka #: [id number] MANSOOR: 07/04/25 09:[address]: Ke Kelley DEPT: SURGICAL PATHOLOGY RECD BY: Harpal Haji ENTERED: 07/04/25 11:27 SP TYPE: Calculi OTHR DR: LUIS Malik Tissues: A - CALCULI Procedures: Surgery Specimen Level I HEADER OPERATION: Cysto, ureteroscopy, retro, laser, stent PRE-OP DIAGNOSIS: Calculus of kidney, benign prostatic hyperplasia TISSUE SUBMITTED: A- Renal calculus GROSS DIAGNOSIS A. Renal calculi, removal: - Urolithiasis (gross examination only)-sent for stone analysis - see Comment. COMMENT The calculus is submitted in its entirety for chemical stone analysis. The results from this study will be reported separately. GROSS DESCRIPTION A. Received fresh labeled the patient's name and date of . Designated as renal calculi are multiple luo to yellow, irregular calculi, 0.1 cm to 0.5 cm. No sections are submitted. The specimen is for gross examination only. The specimen is sent for stone analysis. DE 07/04/2025 CPT:55116
[2025-07-04] MEDS: fentaNYL 100 MCG/2 ML Ampul 200 MCG IV (10:16)
--- NOTE | 2025-07-04 10:27 | DCINST_ITS ---
Discharge Instructions DC O2, CPAP, BIPAP needs Home O2 Discharge instructions: No Dressing / Incision Discharge Activity: Return to Normal Activity and May Not Drive (while taking narcotic pain medications.) Dressing / Incision Call your doctor if you observe: Fever of 101 or Higher Follow Up Care Please Follow Up With: Ke Kelley MD When: Call [phone] for an appointment Test Results: Test results from this visit will be discussed in further detail at your follow- up appointment, if applicable. Discharge Plan Admission Primary Reason for Your Visit: laser stone Attending Provider: Ke Kelley Primary Care Provider: Owen Avendano Instructions Print Language: Croatian Discharge Orders/Prescriptions Prescriptions: New ciprofloxacin HCl [Cipro] 500 mg tablet 500 mg PO BID Qty: 10 0RF allopurinol 100 mg tablet 100 mg PO DAILY Qty: 90 3RF oxycodone 5 mg tablet 5 mg PO Q6H PRN (Reason: pain) 7 Days Qty: 20 0RF potassium citrate [Urocit-K 15] 15 mEq tablet extended release 15 meq PO BID Qty: 60 11RF Continued tamsulosin 0.4 mg capsule 0.4 mg PO DAILY phenazopyridine 100 mg tablet 100 mg PO TID PRN PRN (Reason: pain) ciprofloxacin HCl 500 mg tablet 500 mg PO BID oxycodone 5 mg tablet 5 mg PO Q6H PRN PRN (Reason: pain) losartan 50 mg tablet 50 mg PO DAILY Qty: 90 1RF Referrals / Follow Up: Ke Kelley MD [Med Staff - Active Staff, Urology] Owen Avendano PA [Primary Care Provider, Internal Medicine] Disposition Disposition (needs filled in before D/C Order can be placed): Home, Self Care
--- NOTE | 2025-07-04 10:27 | PCM.OPRPT ---
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: No Type of Anesthesia: General RN Documented Start/Stop Times: Operation Date: 07/04/25 09:00 Case Time Into Pre-Op 07/04/25 06:57 Out of Pre-Op 07/04/25 08:36 Anesthesia Start 07/04/25 08:40 Into Room 07/04/25 08:40 Procedure Start 07/04/25 08:55 Procedure End 07/04/25 10:24 Procedure Start Time: 08:55 Procedure Stop Time: 10:28 Select all DRAINS/GRAFTS/IMPLANTS that apply: Drains Drain details: 6 x 26 stent Estimated Blood Loss: Minimal Specimen collected: Yes Description of specimen(s) removed: Stones for analysis Description of surgery: This is a 50-year-old male who was reported to have only a 1 cm stone on CAT scan but when it took him to surgery last week the stone was extremely large lasered a significant amount of stones at that point took 3 hours to laser about that point at the stop because visualization had gone to 0 was still not able to laser anymore so and pluses can take another significant long time the laser more so brought back for second stage lasering of the stone fragments that are in the left kidney he was taken back to the operating room after induction of anesthesia he was placed in dorsolithotomy position went into the bladder with a 21 [place] rigid cystourethroscope once inside the bladder I pulled out the stent put a wire up on the right kidney and then over the wire went in with a flexible ureteroscope once I got into the renal pelvis there was a quite a large fragment that was still connected together this fragments probably over a centimeter and a half in size I started lasering the fragment broke 1 piece and then trapped all the calyx stone fragments into a upper pole calyx lasered these completely we used the thulium laser settings were quite high 0.4 J and 160 Hz 48 W, total did not go higher than this and then I went to the other side and lasered the other fragment and lasered this completely took a long time the laser we lasered for over an hour and a half use a lot of power I had the laser cranked up to the highest possible at the end I felt those confident of the laser everything completely I could only see dust fragments and the dust crept allowed in the renal pelvis work my way down the ureter and I will place a stent on the right side I will see him next week for cystoscopy stent removal. Of note these appear to be uric acid stones or can start him on allopurinol and potassium citrate Surgical Findings: Remaining fragments in the kidney lasered completely stones appear to be uric acid Complications Complications: No Admit VTE Documentation VTE Present on Admission: No VTE Mechan Device Prophylaxis: SCD's
--- NOTE | 2025-07-04 10:36 | PCM.POST.ANE ---
Anesthesia: Postop Eval I Current Vital Signs Temperature: 97.1 F Pulse Rate: 86 Blood Pressure: 153/85 Respiratory Rate: 16 Pulse Ox: 94 Oxygen Delivery Method: Nasal Cannula Oxygen Flow Rate (L/min): 2 Assessment Airway patent: Yes Spontaneous unlabored respirations: Yes Mental status: Awake and Calm nausea: No Vomiting: No Anesthesia Complication: No Fluid Hydration Crystalloid volume administer (ml): 1,800 Total IV fluid infused: 1,800 Progress Note Anesthesia document: Postop Eval 1 completed: Yes
--- NOTE | 2025-07-04 10:57 | POSTOPAN2_ITS ---
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 Spontaneous unlabored Yes 07/04/25 10:37 [email or web address] respirations Mental status Awake,Calm 07/04/25 10:37 [email or web address] nausea No 07/04/25 10:37 [email or web address] Vomiting No 07/04/25 10:37 [email or web address] Anesthesia Postop Eval I: Fluid Summary Crystalloid volume administer 1,800 07/04/25 10:37 [email or web address] (ml) Colloids volume administered ( ml) Blood Product volume administered (ml) Total IV fluid infused 1,800 07/04/25 10:37 [email or web address] Anesthesia Postop Eval I: Summary Notes Anesthesia Complication No 07/04/25 10:37 [email or web address] Anesthesia Complication Comment: Post-operative progress note Anesthesia: Postop Eval II Evaluation Mental status: Awake Pain Level: 0 nausea: No Vomiting: No
--- NOTE | 2025-07-04 10:57 | PCM.POSTANE2 ---
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 Spontaneous unlabored Yes 07/04/25 10:37 PAINTER AND BODY [email or web address] respirations Mental status Awake,Calm 07/04/25 10:37 PAINTER AND BODY [email or web address] nausea No 07/04/25 10:37 PAINTER AND BODY [email or web address] Vomiting No 07/04/25 10:37 PAINTER AND BODY [email or web address] Anesthesia Postop Eval I: Fluid Summary Crystalloid volume administer 1,800 07/04/25 10:37 PAINTER AND BODY [email or web address] (ml) Colloids volume administered ( ml) Blood Product volume administered (ml) Total IV fluid infused 1,800 07/04/25 10:37 PAINTER AND BODY [email or web address] Anesthesia Postop Eval I: Summary Notes Anesthesia Complication No 07/04/25 10:37 PAINTER AND [email or web address] [email or web address] Anesthesia Complication Comment: Post-operative progress note Anesthesia: Postop Eval II Evaluation Mental status: Awake Pain Level: 0 nausea: No Vomiting: No
[2025-07-04] MEDS: Ketorolac 30 MG/ML Syringe IV (11:01)
== END 2025-07-04 11:57 | disposition home or self-care (01) ==
LOC: SDC 06:50 → AC 06:51
PROVIDERS: PCP Physician Assistant; Referring Provider Urology; Visit Provider Urology
PROC: 0TJ98ZZ Inspection of Ureter, Via Natural or Artificial Opening Endoscopic (ICD-10-PCS; CPT 52352; principal; 2025-07-04 08:45)
DX: N20.0 Calculus of kidney (principal); I10 Essential (primary) hypertension; Z79.899 Other long term (current) drug therapy
CPT/HCPCS: 52356; 00873; 76000; 82360; 88300; C1769; C2617; J2405